=== PATIENT | female | born 1990 | race Caucasian/White ===

== ENCOUNTER 2016-02-17 19:06 | Outpatient (CLI) | payer OTHER ==
[2016-02-17 19:48] LABS: APPEARANCE,URINE CLOUDY; BILIRUBIN,URINE NEGATIVE (NEGATIVE); GLUCOSE, URINE NEGATIVE (NEGATIVE); KETONES,URINE NEGATIVE (NEGATIVE); LEUKOCYTE ESTERASE,URINE TRACE (NEGATIVE); NITRITE,URINE NEGATIVE (NEGATIVE); PROTEIN,URINE NEGATIVE (NEGATIVE); UROBILINOGEN,URINE NEGATIVE mg/dL (<2.0)
--- NOTE | 2016-02-17 20:00 | L&D Flow Sheet ---
LD Flowsheet Datetime Report Generated by CPN: 02/17/2016 20:00 Datetime: 02/17/2016 19:56 Assessment A Comments: Maternal heartbeat recorded. Pt sitting up. (Jelena Ring, RN) Communication Communication: RN at Bedside (Jelena Ring, RN) Datetime: 02/17/2016 19:55 Vital Signs NBP Sys/Sharyn/Mean (mmHg): 128 (QS system process) : 75 (QS system process) : 94 (QS system process) Pulse: 101 (QS system process) LaborFlag: Antepartum (QS system process) Datetime: 02/17/2016 19:28 Vital Signs NBP Sys/Sharyn/Mean (mmHg): 127 (QS system process) : 86 (QS system process) : 102 (QS system process) Pulse: 95 (QS system process) Pain Pain Scale: 2 (Jelena Ring, RN) Pain Presence: Intermittent (Jelena Ring, RN) Pain Type: Pressure (Jelena Ring, RN) Pain Location: Perineum (Jelena Ring, RN) Pain Goal: 1 (Jelena Ring, RN) Pain Relief Measures: Comfort Measures (Jelena Ring, RN) Pain Coping: Talking Through Contractions; Breathing Through Contractions (Jelena Ring, RN) Vaginal Exam Membrane Status: Intact (Jelena Ring, RN) Vaginal Bleeding: None (Jelena Ring, RN) Maternal Assessment Level of Consciousness: Fully Conscious (Jelena Ring, RN) DTR's/Clonus: DTRs 2+; No Clonus (Jelena Ring, RN) Headache: Generalized; Frontal (Jelena Ring, RN) Breath Sounds, Left: Clear and Equal (Jelena Ring, RN) Breath Sounds, Right: Clear and Equal (Jelena Ring, RN) Nausea/Vomiting: Present (Annotations: Heartburn is causing nausea) (Jelena Ring, RN) RUQ Epigastric Pain: Present (Annotations: Pt states feeling pain that radiates up back and shoulder from her "gallbladder") (Jelena Ring, RN) Teaching Instructional Method: Verbal; Patient Instructed; Family/Support Person Instructed; Verbalized Understanding (Jelena Ring, RN) Plan of Care: Plan of Care Discussed (Jelena Brunson RN) Unit Routine: [place] to Room; Call [place]; Bed; Handwashing; Monitoring; Safety/Fall Risk Prevention; Bathroom Privileges (Jelena Brunson RN) Related: Common Discomforts of ; Nutrition; Hydration; Activity and Rest (Jelena Brunson RN) LaborFlag: Antepartum (QS system process)
[2016-02-17 20:03] LABS: URINE BARBITURATES SCREEN NEGATIVE; URINE METHADONE SCREEN NEGATIVE; URINE PHENCYCLIDINE SCREEN NEGATIVE
[2016-02-17] MEDS ORDERED: ONDANSETRON HCL 8 MG TABLET PO ONE (20:12)
[2016-02-17] MEDS ORDERED: LANSOPRAZOLE 30 MG TAB.RAP.DR PO ONE (20:12)
[2016-02-17] MEDS ORDERED: ONDANSETRON HCL 8 MG TABLET ONE (20:21)
[2016-02-17] MEDS ORDERED: LANSOPRAZOLE 30 MG TAB.RAP.DR ONE (20:22)
[2016-02-17] MEDS ORDERED: CITRIC ACID/SODIUM CITRATE ORAL SOLN 15 ML UDCUP PO ONE (22:44)
[2016-02-17] MEDS ORDERED: ZOLPIDEM TARTRATE 5 MG TABLET PO ONE (22:44)
[2016-02-17] MEDS ORDERED: ZOLPIDEM TARTRATE 5 MG TABLET ONE (22:48)
[2016-02-17] MEDS ORDERED: CITRIC ACID/SODIUM CITRATE ORAL SOLN 15 ML UDCUP ONE (22:50)
--- NOTE | 2016-02-17 23:31 | Non Stress Test Report ---
Non Stress Test Datetime Report Generated by CPN: 02/17/2016 23:31 DEMOGRAPHIC Test Number: 2 EGA NST: 38.3 INDICATION Indication for Study: Ordered by Provider URINE RESULTS Urine Protein, NST: Negative Urine Ketones - NST: Negative Urine Glucose - NST: Negative Urine Blood - NST: Negative MONITORING Monitor Explained: Monitor Explained; Test Explained; Patient Verbalized Understanding Time on Monitor: 02/17/2016 19:26 Time off Monitor: 02/17/2016 22:30 NST Duration: 184 NST INTERVENTIONS NST Interventions: PO Hydration; Meal Given; Reposition Patient Physician Notified NST: Dr. Neilsen BABY A: [id number] BABY A Movement : Present Contraction Frequency : Irregular FHR Baseline : 135 Accelerations : 15X15 Decelerations : Variable Variability : Moderate 6-25bpm NST Review: Meets Criteria for Reactive NST NST Review and Verified By : SANNA Jiménez NSDonnie Results: Reactive NST REPORT Report Trigger: Send Report
--- NOTE | 2016-02-18 04:46 | L&D Flow Sheet ---
LD Flowsheet Datetime Report Generated by CPN: 02/18/2016 04:45 Datetime: 02/17/2016 23:00 Teaching Comments: Pt in stable condition, ambulating off of unit accompanied by spouse. Care relinquished at this time. (Jelena Ring, RN) Datetime: 02/17/2016 22:55 Teaching Comments: Pt and patient's verbalized understanding of signs and symptoms to report to provider to include decreased movement, vaginal bleeding, contractions that increase in duration/frequency/intensity, suspected SROM or worsening of chief complaints of dizziness, heartburn or nausea. Pt states that yael has worked almost immediately and denies any pain or questions at this time. (Jelena Ring, RN) Datetime: 02/17/2016 22:53 Medications Medication Comments: Ambien 5 mg PO now x 1 (Jelena Ring, RN) Datetime: 02/17/2016 22:52 Medications Medication Comments: Bicitra 15 ml PO now X1 (Jelena Ring, RN) Datetime: 02/17/2016 22:48 Patient Care Comments: Pt requesting to take the bicitra that was offered previously. (Jelena Ring, RN) Datetime: 02/17/2016 22:32 Vital Signs NBP Sys/Sharyn/Mean (mmHg): 119 (QS system process) : 69 (QS system process) : 88 (QS system process) Pulse: 90 (QS system process) Respirations: 20 (Jelena Ring, RN) Temperature (F): 98.2 (Jelena Ring, RN) Temperature (C): 36.8 (QS system process) LaborFlag: Antepartum (QS system process) Datetime: 02/17/2016 22:30 Uterine Activity Monitor Mode: External; Palpation (Jelena Ring, RN) Frequency (min): Irregular (Jelena Ring, RN) Quality: Mild (Jelena Ring, RN) Duration (sec): 40-60 (Jelena Ring, RN) Resting Tone (Palpate): Relaxed (Jelena Ring, RN) Assessment A Monitor Mode: External US (Jelena Ring, RN) FHR Baseline Rate : 135 (Jelena Ring, RN) Variability: Moderate 6-25 bpm (Jelena Ring, RN) Accelerations: 15X15 (Jelena Ring, RN) Decelerations: None (Jelena Ring, RN) Comments: One prolonged acceleration noted at beginning of timeframe assessed. (Jelena Ring, RN) Datetime: 02/17/2016 22:29 Medications Medication Comments: POC discussed with pt. Pt declines bicitra, but would like ambien 5 mg PO now x 1. (Jelena Brunson, RN) Datetime: 02/17/2016 22:21 Communication Communication: Provider Orders Received; Call/Page Placed to Provider (Jelena Brunson RN) Communication Comments: Call placed to Dr. Rosenbaum. Report to include pt still complaining of heartburn with small nausea from it, toco data and FHR with wandering baseline with some variable decels. Orders received to give pt 15 ml bicitra and 5 mg ambien PO now x1. May discharge pt home and have pt follow up in the office this week. (Jelena Brunson, RN) Datetime: 02/17/2016 22:17 Vital Signs NBP Sys/Sharyn/Mean (mmHg): 124 (QS system process) : 73 (QS system process) : 93 (QS system process) Pulse: 95 (QS system process) LaborFlag: Antepartum (QS system process) Datetime: 02/17/2016 22:00 Uterine Activity Monitor Mode: External; Palpation (Jelena Ring, RN) Frequency (min): 0 (Jelena Ring, RN) Resting Tone (Palpate): Relaxed (Jelena Ring, RN) Assessment A Monitor Mode: External US (Jelena Ring, RN) FHR Baseline Rate : 135 (Jelena Ring, RN) FHR Baseline Changes: Return to Previous Baseline (Jelena Ring, RN) Accelerations: 15X15 (Jelena Ring, RN) Decelerations: None (Jelena Ring, RN) Datetime: 02/17/2016 21:56 Vital Signs NBP Sys/Sharyn/Mean (mmHg): 131 (QS system process) : 62 (QS system process) : 89 (QS system process) Pulse: 99 (QS system process) LaborFlag: Antepartum (QS system process) Datetime: 02/17/2016 21:48 Uterine Activity Monitor Mode: External; Palpation (Jelena Ring, RN) Frequency (min): x1 (Jelena Ring, RN) Quality: Mild (Jelena Ring, RN) Duration (sec): 60 (Jelena Ring, RN) Resting Tone (Palpate): Relaxed (Jelena Ring, RN) Assessment A Monitor Mode: External US (Jelena Ring, RN) FHR Baseline Rate : 155 (Jelena Ring, RN) Variability: Moderate 6-25 bpm (Jelena Ring, RN) Accelerations: 15X15 (Jelena Ring, RN) Decelerations: None (Jelena Ring, RN) Datetime: 02/17/2016 21:35 Vital Signs NBP Sys/Sharyn/Mean (mmHg): 121 (QS system process) : 72 (QS system process) : 91 (QS system process) Pulse: 100 (QS system process) LaborFlag: Antepartum (QS system process) Datetime: 02/17/2016 21:30 Uterine Activity Monitor Mode: External; Palpation (Jelena Ring, RN) Frequency (min): Irregular (Jelena Ring, RN) Quality: Mild (Jelena Ring, RN) Duration (sec): 70-110 (Jelena Ring, RN) Resting Tone (Palpate): Relaxed (Jelena Ring, RN) Assessment A Monitor Mode: External US (Jelena Ring, RN) FHR Baseline Rate : 145 (Jelena Ring, RN) Variability: Moderate 6-25 bpm (Jelena Ring, RN) Accelerations: 15X15 (Jelena Ring, RN) Decelerations: Variable (Jelena Ring, RN) Comments: Change in baseline (Jelena Ring, RN) Datetime: 02/17/2016 21:16 Vital Signs NBP Sys/Sharyn/Mean (mmHg): 116 (QS system process) : 66 (QS system process) : 86 (QS system process) Pulse: 100 (QS system process) LaborFlag: Antepartum (QS system process) Datetime: 02/17/2016 21:00 Uterine Activity Monitor Mode: External; Palpation (Jelena Ring, RN) Frequency (min): Irregular (Jelena Ring, RN) Quality: Mild (Jelena Ring, RN) Duration (sec): 40-110 (Jelena Ring, RN) Resting Tone (Palpate): Relaxed (Jelena Ring, RN) Assessment A Monitor Mode: External US (Jelena Ring, RN) FHR Baseline Rate : 135 (Jelena Ring, RN) Variability: Moderate 6-25 bpm (Jelena Ring, RN) Accelerations: Prolonged (Jelena Ring, RN) Decelerations: Variable (Jelena Ring, RN) Datetime: 02/17/2016 20:55 Vital Signs NBP Sys/Sharyn/Mean (mmHg): 123 (QS system process) : 74 (QS system process) : 93 (QS system process) Pulse: 95 (QS system process) LaborFlag: Antepartum (QS system process) Datetime: 02/17/2016 20:35 Vital Signs NBP Sys/Sharyn/Mean (mmHg): 126 (QS system process) : 70 (QS system process) : 93 (QS system process) Pulse: 99 (QS system process) LaborFlag: Antepartum (QS system process) Datetime: 02/17/2016 20:34 Patient Care Patient Position/Activity: Right Tilt (Jelena Ring, RN) Datetime: 02/17/2016 20:30 Uterine Activity Monitor Mode: External; Palpation (Jelena Ring, RN) Frequency (min): Irregular (Jelena Ring, RN) Quality: Mild (Jleena Ring, RN) Duration (sec): 40-110 (Jelena Ring, RN) Resting Tone (Palpate): Relaxed (Jelena Ring, RN) Assessment A Monitor Mode: External US (Jelena Ring, RN) FHR Baseline Rate : 130 (Jelena Ring, RN) Variability: Moderate 6-25 bpm (Jelena Ring, RN) Accelerations: 15X15 (Jelena Ring, RN) Decelerations: Variable (Jelena Ring, RN) I/O Interventions: Ice Chips Given (Jelena Ring, RN) Patient Care Comments: [place] given for nausea (Jelena Ring, RN) Datetime: 02/17/2016 20:23 Medications Medication Comments: Zofran 8 mg PO. Prevacid 30 mg PO (Jelena Ring, RN) Datetime: 02/17/2016 20:21 Communication Communication: Provider Orders Received; Call/Page Placed to Provider (Jelena Ring, RN) Communication Comments: Call placed to Dr. Rosenbaum. Report to include variable decelerations upon pt sitting up to throw up. Orders received to monitor pt for two more hours then may send home if strip returns to category I. Pt may also have 25 mg phenergan suppository before discharge if desired. (Jelena Ring, RN) Datetime: 02/17/2016 20:15 Vital Signs NBP Sys/Sharyn/Mean (mmHg): 107 (QS system process) : 55 (QS system process) : 75 (QS system process) Pulse: 88 (QS system process) LaborFlag: Antepartum (QS system process) Datetime: 02/17/2016 20:14 Patient Care Comments: Pt vomiting and sitting up. Cool washcloth applied to head. (Jelena Ring, RN) Communication Communication: RN at Bedside (Jelena Brunson RN) Datetime: 02/17/2016 20:05 Communication Communication: Provider Orders Received; Call/Page Placed to Provider (Jelena Brunson RN) Communication Comments: Call placed to Dr. Rosenbaum. Report to includerelevant patient history, pt complains of dizziness, nausea, heartburn, some intermittant pressure and irregular, infrequent contractions, toco data, FHR, urinalysis results and vital signs. Orders received that pt may have 30 mg prevacid PO x1 and 8 mg zofran PO x 1 now for nausea and heartburn. Pt to follow up in the office as scheduled. (Jelena Brunson RN) Datetime: 02/17/2016 20:00 Uterine Activity Monitor Mode: External; Palpation (Jelena Ring, RN) Frequency (min): x1 (Jelena Ring, RN) Quality: Mild (Jelena Ring, RN) Duration (sec): 50 (Jelena Ring, RN) Resting Tone (Palpate): Relaxed (Jelena Ring, RN) Assessment A Monitor Mode: External US (Jelena Ring, RN) FHR Baseline Rate : 135 (Jelena Ring, RN) Variability: Moderate 6-25 bpm (Jelena Ring, RN) Accelerations: 15X15 (Jelena Ring, RN) Decelerations: None (Jelena Ring, RN) Pain Assessment Comments: Pt denies any contractions (Jelena Ring, RN) LaborFlag: Antepartum (QS system process) Datetime: 02/17/2016 19:56 Comments: Maternal heartbeat recorded. Pt sitting up. (Jelena Ring, RN) Communication Communication: RN at Bedside (Jelena Ring, RN) Datetime: 02/17/2016 19:55 Vital Signs NBP Sys/Sharyn/Mean (mmHg): 128 (QS system process) : 75 (QS system process) : 94 (QS system process) Pulse: 101 (QS system process) LaborFlag: Antepartum (QS system process) Datetime: 02/17/2016 19:32 Vaginal Exam Comments: SVE deferred as pt is not complaining of contractions, does not desire cervical check. (Jelena Ring, RN) Datetime: 02/17/2016 19:30 Patient Care Patient Position/Activity: Left Tilt (Jelena Ring, RN) Datetime: 02/17/2016 19:28 Vital Signs NBP Sys/Sharyn/Mean (mmHg): 127 (QS system process) : 86 (QS system process) : 102 (QS system process) Pulse: 95 (QS system process) Pain Pain Scale: 2 (Jelena Ring, RN) Pain Presence: Intermittent (Jelena Ring, RN) Pain Type: Pressure (Jelena Ring, RN) Pain Location: Perineum (Jelnea Ring, RN) Pain Goal: 1 (Jelena Ring, RN) Pain Relief Measures: Comfort Measures (Jelena Ring, RN) Pain Coping: Talking Through Contractions; Breathing Through Contractions (Jelena Ring, RN) Vaginal Exam Membrane Status: Intact (Jelena Ring, RN) Vaginal Bleeding: None (Jelena Ring, RN) Maternal Assessment Level of Consciousness: Fully Conscious (Jelena Ring, RN) DTR's/Clonus: DTRs 2+; No Clonus (Jelena Ring, RN) Headache: Generalized; Frontal (Jelena Ring, RN) Breath Sounds, Left: Clear and Equal (Jelena Brunson RN) Breath Sounds, Right: Clear and Equal (Jelena Brunson RN) Nausea/Vomiting: Present (Annotations: Heartburn is causing nausea) (Jelena Brunson RN) RUQ Epigastric Pain: Present (Annotations: Pt states feeling pain that radiates up back and shoulder from her "gallbladder") (Jelena Brunson RN) Teaching Instructional Method: Verbal; Patient Instructed; Family/Support Person Instructed; Verbalized Understanding (Jelena Brunson RN) Plan of Care: Plan of Care Discussed (Jelena Brunson RN) Unit Routine: [place] to Room; Call [place]; Bed; Handwashing; Monitoring; Safety/Fall Risk Prevention; Bathroom Privileges (Jelena Brunson RN) Related: Common Discomforts of ; Nutrition; Hydration; Activity and Rest (Jelena Brunson RN) LaborFlag: Antepartum (QS system process)
--- NOTE | 2016-02-18 04:46 | L&D Admission Assessment ---
LD ADM ASMT Datetime Report Generated by CPN: 02/18/2016 04:45 PATIENT ASSESSMENT Assessment Type: Triage (02/17/2016 19:28:Jelena Ring, RN) WEIGHT Weight (lb): 143 (02/17/2016 20:02:QS system process) Weight (kg): 65.0 (02/17/2016 20:02:QS system process) BMI: 25.3 (02/17/2016 20:02:QS system process) PAIN Pain Scale: 2 (02/17/2016 19:28:Jelena Ring, RN) Pain Presence: Intermittent (02/17/2016 19:28:Jelena Ring, RN) Pain Type: Pressure (02/17/2016 19:28:Jelena Ring, RN) Pain Location: Perineum (02/17/2016 19:28:Jelena Ring, RN) Pain Goal: 1 (02/17/2016 19:28:Jelena Ring, RN) Pain Related to Contraction: Unsure (Annotations: Pt states feeling some pain during contractions, but is mostly dizzy and feeling nauseated and having heartburn) (02/17/2016 19:28:Jelena Ring, RN) Pain Comments: Pt denies any contractions (02/17/2016 20:00:Jelena Ring, RN) CONTRACTIONS Frequency (min): Irregular (02/17/2016 22:30:Jelena Ring, RN) Frequency (min): 0 (02/17/2016 22:00:Jelena Ring, RN) Frequency (min): x1 (02/17/2016 21:48:Jelena Ring, RN) Frequency (min): Irregular (02/17/2016 21:30:Jelena Ring, RN) Frequency (min): Irregular (02/17/2016 21:00:Jelena Ring, RN) Frequency (min): Irregular (02/17/2016 20:30:Jelena Ring, RN) Frequency (min): x1 (02/17/2016 20:00:Jelena Ring, RN) Duration (sec): 40-60 (02/17/2016 22:30:Jelena Ring, RN) Duration (sec): 60 (02/17/2016 21:48:Jelena Ring, RN) Duration (sec): 70-110 (02/17/2016 21:30:Jelena Ring, RN) Duration (sec): 40-110 (02/17/2016 21:00:Jelena Ring, RN) Duration (sec): 40-110 (02/17/2016 20:30:Jelnea Ring, RN) Duration (sec): 50 (02/17/2016 20:00:Jelena Ring, RN) Quality: Mild (02/17/2016 22:30:Jelena Ring, RN) Quality: Mild (02/17/2016 21:48:Jelena Ring, RN) Quality: Mild (02/17/2016 21:30:Jelena Ring, RN) Quality: Mild (02/17/2016 21:00:Jelena Ring, RN) Quality: Mild (02/17/2016 20:30:Jelena Ring, RN) Quality: Mild (02/17/2016 20:00:Jelena Ring, RN) Resting Tone [place]: Relaxed (02/17/2016 22:30:Jelena Ring, RN) Resting Tone [place]: Relaxed (02/17/2016 22:00:Jelena Ring, RN) Resting Tone [place]: Relaxed (02/17/2016 21:48:Jelena Ring, RN) Resting Tone [place]: Relaxed (02/17/2016 21:30:Jelena Ring, RN) Resting Tone [place]: Relaxed (02/17/2016 21:00:Jelena Ring, RN) Resting Tone [place]: Relaxed (02/17/2016 20:30:Jelena Ring, RN) Resting Tone [place]: Relaxed (02/17/2016 20:00:Jelena Ring, RN) VAGINAL EXAM Membranes Status: Intact (02/17/2016 19:28:Jelena Ring, RN) NEURO Level of Consciousness: Fully Conscious (02/17/2016 19:28:Jelena Ring, RN) DTR's/Clonus: DTRs 2+; No Clonus (02/17/2016 19:28:Jelena Ring, RN) Headache: Generalized; Frontal (02/17/2016 19:28:Jelena Ring, RN) Dizziness: Yes (Annotations: pt states dizziness has improved since being at the hospital and sitting down) (02/17/2016 19:28:Jelena Ring, RN) Blurred Vision: No (02/17/2016 19:28:Jelena Ring, RN) Extremity Numbness/Tingling : None (02/17/2016 19:28:Jelena Ring, RN) Extremity Movement: Full Range of Motion (02/17/2016 19:28:Jelena Ring, RN) CARDIOVASCULAR Heart Rhythm: Regular (Annotations: Pt states having tachycardia; normal rhythm auscultated upon assessment) (02/17/2016 19:28:Jelena Brunson RN) Nailbeds: [place] (02/17/2016 19:28:Jelena Brunson RN) Capillary Refill: Less than 3 Seconds (02/17/2016 19:28:Jelena Brunson RN) Lower Extremities Edema: None (02/17/2016 19:28:Jelena Brunson RN) Upper Extremities Edema: None (02/17/2016 19:28:Jelena Brunson RN) Facial Edema: None (02/17/2016 19:28:Jelena Brunson RN) Dg's Sign Left Leg: Negative (02/17/2016 19:28:Jelena Brunson RN) Dg's Sign Right Leg: Negative (02/17/2016 19:28:Jelena Brunson RN) DVT RISK ASSESSMENT DVT Risk Age: Age less than 41 years (02/17/2016 19:28:Jelena Brunson RN) DVT Risk BMI: BMI<31 (02/17/2016 19:28:Jelena Brunson RN) DVT Risk Surgery: History of Prior Major Surgery (Annotations: multiple cyst removals, wisdom teeth, jaw surgery) (02/17/2016 19:28:Jelena Brunson RN) DVT Risk Other: Women Only- or (<1 month) (02/17/2016 19:28:Jelena Ring, RN) DVT Risk Total: 2 (02/17/2016 19:28:QS system process) DVT Risk Text: Moderate Risk (10-20%) - Consider stockings, compresssion device, pharmacological therapy per hospital policy (02/17/2016 19:28:QS system process) RESPIRATORY Respiratory Effort: Unlabored; Regular Rhythm; Equal Expansion (02/17/2016 19:28:Jelena Ring, RN) Breath Sounds, Left: Clear and Equal (02/17/2016 19:28:Jelena Ring, RN) Breath Sounds, Right: Clear and Equal (02/17/2016 19:28:Jelena Ring, RN) Cough Productivity: None (02/17/2016 19:28:Jelena Ring, RN) GASTROINTESTINAL Nausea/Vomiting: Present (Annotations: Heartburn is causing nausea) (02/17/2016 19:28:Jelena Ring, RN) Bowel Sounds: Normoactive; All Quadrants (02/17/2016 19:28:Jelena Ring, RN) RUQ Epigastric Pain: Present (Annotations: Pt states feeling pain that radiates up back and shoulder from her "gallbladder") (02/17/2016 19:28:Jelena Brunson RN) Bowel Patterns: Soft, Formed Stool (02/17/2016 19:28:Jelena Brunson RN) Hemorrhoids: Present (02/17/2016 19:28:Jelena Brunson RN) Diet Type: "gallbladder diet" (02/17/2016 19:28:Jelena Brunson RN) Last Meal: 02/17/2016 16:30 (02/17/2016 19:28:Jelena Brunson RN) GENITOURINARY Bladder: Nondistended (02/17/2016 19:28:Jelena Brunson RN) Frequency of Urination: No (02/17/2016 19:28:Jelena Brunson RN) Urination Burning: No (02/17/2016 19:28:Jelena Brunson RN) CVA Tenderness: No (02/17/2016 19:28:Jelena Brunson RN) Vaginal Bleeding: None (02/17/2016 19:28:Jelena Brunson RN) Vaginal Discharge Amount: Moderate (02/17/2016 19:28:Jelena Brunson RN) Vaginal Discharge Color: clear (02/17/2016 19:28:Jelena Brunson RN) Vaginal Discharge Odor: Non-Odorous (02/17/2016 19:28:Jelena Brunson RN) Vaginal Discharge Character: Pt states is mucous like and does not think her water has broken (02/17/2016 19:28:Jelena Brunson RN) INTEGUMENTARY Skin Color: Normal for Race (02/17/2016 19:28:Jelena Brunson RN) Skin Temperature: Cool (02/17/2016 19:28:Jelena Brunson RN) Skin Moisture: Dry (02/17/2016 19:28:Jelena Brunson RN) Surgical Scars: left inner thigh from cyst removal in femur; bone biopsy in left hip; cranial cyst removed (02/17/2016 19:28:Jelena Brunson RN) Body Piercings/Tattoos: Ears (02/17/2016 19:28:Jelena Brunson RN) MICHAEL SKIN ASSESSMENT Michael Scale Sensory Perception: No Impairment- Responds to verbal commands. Has no sensory deficit which would limit ability to feel or voice pain or discomfort (02/17/2016 19:28:Jelena Brunson RN) Michael Scale Moisture: Rarely Moist- Skin is usually dry. Linen only requires changing at routine intervals (02/17/2016 19:28:Jelena Brunson RN) Michael Scale Activity: Walks Frequently- Walks outside the room at least twice a day and inside room at least every 2 hours during the day. (02/17/2016 19:28:Jelena Brunson RN) Michael Scale Mobility: No Limitations- Makes major and frequent changes in position without assistance (02/17/2016 19:28:Jelena Brunson RN) Michael Scale Nutrition: Excellent- Eats most of every meal. Never refuses a meal. Usually eats a total of 4 or more servings of meat and dairy products. Occasionally eats between meals. Does not require supplementation (02/17/2016 19:28:Jelena Brunson RN) Michael Scale Friction and Shear: No Apparent Problem- Moves in bed and in chair independently and has sufficient muscle strength to lift up completely during move. Maintains good position in bed or chair at all times (02/17/2016 19:28:Jelena Brunson RN) Michael Scale Total: 23 (02/17/2016 19:28:QS system process) Michael Scale Risk: No Risk of Pressure Ulcer Noted at this Time (02/17/2016 19:28:QS system process) SUPPORT Family Support: Significant Other supportive, at bedside frequently (02/17/2016 19:28:Jelena Brunson RN) Emotional State: Calm/Relaxed (02/17/2016 19:28:Jelena Brunson RN) SAFETY Call [place] Within Reach: Yes (02/17/2016 19:28:Jelena Brunson RN) Side Rails Up: Yes (02/17/2016 19:28:Jelena Brunson RN) Bed Wheels Locked: Yes (02/17/2016 19:28:Jelena Brunson RN) Arm Bands Present: Yes (02/17/2016 19:28:Jelena Brunson RN) Isolation: [place] (02/17/2016 19:28:Jelena Brunson RN) FALL SCREEN Fall Risk History of Falling: (0) No (02/17/2016 19:28:Jelena Brunson RN) Fall Risk Secondary Diagnosis: (0) No (02/17/2016 19:28:Jelena Brunson RN) Fall Risk Ambulatory Aid: (0) None/Bedrest/Wheelchair/Nurse Assist (02/17/2016 19:28:Jelena Brunson RN) Fall Risk IV Therapy: (0) No (02/17/2016 19:28:Jelena Brunson RN) Fall Risk Gait: (0) Normal/Bedrest/Immobile (02/17/2016 19:28:Jelena Brunson RN) Fall Risk Mental Status: (0) Oriented to Own Ability (02/17/2016 19:28:Jelena Brunson RN) Fall Risk Score: 0 (02/17/2016 19:28:QS system process) Fall Risk Score Definition: No Risk: No action required (02/17/2016 19:28:QS system process) RECENT TRAVEL/INFECTIOUS DISEASE Recent Exp Communicable Disease: No (02/17/2016 19:28:Jelena Brunson RN) Cough or Fever: No (02/17/2016 19:28:Jelena Brunson RN) Foreign Travel Past 10 Days: No (02/17/2016 19:28:Jelena Brunson RN) Open Wounds or Sores: No (02/17/2016 19:28:eJlena Brunson RN) Prior Antibiotic Resistance Tx: Yes (Annotations: CDiff in 09/2010) (02/17/2016 19:28:Jelena Brunson RN) Cultures Obtained: Not Applicable (Annotations: more than 3 years ago) (02/17/2016 19:28:Jelena Brunson RN) Isolation Initiated: No (02/17/2016 19:28:Jelena Brunson RN) Pt/Family Education: Handwashing Hygiene (02/17/2016 19:28:Jelena Brunson RN) BABY A FHR Baseline Rate (bpm) Baby A: 135 (02/17/2016 22:30:Jelena Ring RN) FHR Baseline Rate (bpm) Baby A: 135 (02/17/2016 22:00:Jelena Ring RN) FHR Baseline Rate (bpm) Baby A: 155 (02/17/2016 21:48:Jelena Ring, RN) FHR Baseline Rate (bpm) Baby A: 145 (02/17/2016 21:30:Jelena Ring, RN) FHR Baseline Rate (bpm) Baby A: 135 (02/17/2016 21:00:Jelena Ring, RN) FHR Baseline Rate (bpm) Baby A: 130 (02/17/2016 20:30:Jelena Ring, RN) FHR Baseline Rate (bpm) Baby A: 135 (02/17/2016 20:00:Jelena Ring, RN) Variability Baby A: Moderate 6-25 bpm (02/17/2016 22:30:Jelena Ring, RN) Variability Baby A: Moderate 6-25 bpm (02/17/2016 21:48:Jelena Ring, RN) Variability Baby A: Moderate 6-25 bpm (02/17/2016 21:30:Jelena Ring, RN) Variability Baby A: Moderate 6-25 bpm (02/17/2016 21:00:Jelena Ring, RN) Variability Baby A: Moderate 6-25 bpm (02/17/2016 20:30:Jelena Ring, RN) Variability Baby A: Moderate 6-25 bpm (02/17/2016 20:00:Jelena Ring, RN) Accelerations Baby A: 15X15 (02/17/2016 22:30:Jelena Ring, RN) Accelerations Baby A: 15X15 (02/17/2016 22:00:Jelena Ring, RN) Accelerations Baby A: 15X15 (02/17/2016 21:48:Jelena Ring, RN) Accelerations Baby A: 15X15 (02/17/2016 21:30:Jelena Ring, RN) Accelerations Baby A: Prolonged (02/17/2016 21:00:Jelena Ring, RN) Accelerations Baby A: 15X15 (02/17/2016 20:30:Jelena Ring, RN) Accelerations Baby A: 15X15 (02/17/2016 20:00:Jelena Ring, RN) Decelerations Baby A: None (02/17/2016 22:30:Jelena Ring, RN) Decelerations Baby A: None (02/17/2016 22:00:Jelena Ring, RN) Decelerations Baby A: None (02/17/2016 21:48:Jelena Ring, RN) Decelerations Baby A: Variable (02/17/2016 21:30:Jelena Brunson RN) Decelerations Baby A: Variable (02/17/2016 21:00:Jelena Brunson RN) Decelerations Baby A: Variable (02/17/2016 20:30:Jelena Brunson RN) Decelerations Baby A: None (02/17/2016 20:00:Jelena Brunson RN)
--- NOTE | 2016-02-18 04:46 | L&D Discharge Summary ---
OB Discharge Summary Datetime Report Generated by CPN: 02/18/2016 04:45 DISCHARGE DIAGNOSIS Diagnosis/Symptoms: False Labor; Nausea/Vomiting Diagnoses/Symptoms Other: Reactive NST, Dehydration in Reviewed and signed Kick Counts and Dehydration in Care notes. Pt encouraged to keep f/u as scheduled and return for decreased FM or PTL concerns. Pt verbalized understanding and denies needs. Gestation: 38.3 Number of Babies in Womb: 1 Parity: 2 DIET/ACTIVITY/RESTRICTIONS Diet: Regular Activity: Normal Activity Activity Restrictions: No Sexual Activity; Nothing in Vagina - [place], Tampons, Douche TEACHING/INSTRUCTIONS/REFERRALS Instructions Given To: Patient, patient's spouse Instructions Understood: Patient Verbalized Understanding; Support Person Verbalized Understanding Referrals: None Educational Materials- Other: - Kick Counts - The Labor Process DISCHARGE INFORMATION Discharged AMA: No Discharge Date/Time: 02/17/2016 23:00 Discharged To: Home Discharge Provider Name: Dr. Rosenbaum Accompanied By: Spouse Discharge Method: Ambulatory Condition: Stable FOLLOW UP INFORMATION Follow Up With: [facility] Follow Up On: 3-5 Days Follow Up Phone Number: [facility] - Comments: Pt and patient's verbalize understanding of signs and symptoms to report to provider to include decreased movement, vaginal bleeding, contractions that increase in duration/frequency/intensity, suspected SROM or worsening of chief complaints of dizziness, heartburn or nausea. Will follow up with [facility] this week.
--- NOTE | 2016-02-18 04:46 | L&D Current Admission ---
Current Admit Datetime Report Generated by CPN: 02/18/2016 04:45 ADMISSION INFORMATION Chief Complaint: Other (Annotations: dizziness, random contractions and pressure, heartburn and nausea) (02/17/2016 19:28:Jelena Brunson RN) Chief Complaint: Nausea; Vomiting; Other (01/17/2016 11:53:Hilary Bojorquez RN)
--- NOTE | 2016-02-18 04:46 | L&D General Admission ---
General Admit Datetime Report Generated by CPN: 02/18/2016 04:45 INFORMATION Para: 2 (02/17/2016 23:10:Jelena Ring, RN) Baby, Number in Womb: 1 (02/17/2016 23:10:Jelena Ring, RN) CARE Height (in): 63 (02/17/2016 20:02:QS system process) Height (in): 63 (01/17/2016 12:13:QS system process) Height (in): 63 (01/17/2016 11:40:QS system process) ALLERGIES Medication Allergies: morphine/SV/Anaphylaxis (02/17/2016); azithromycin/GA (02/17/2016); latex/GA (02/17/2016) (02/17/2016 19:59:QS system process) Medication Allergies: morphine/SV/Anaphylaxis (01/17/2016); azithromycin/GA (01/17/2016); latex/GA (01/17/2016) (01/17/2016 11:37:QS system process) LABS Hemoglobin: 9.0 L (01/17/2016 13:12:QS system process) Hematocrit: 26.5 L (01/17/2016 13:12:QS system process) MCV: 86 (01/17/2016 13:12:QS system process)
--- NOTE | 2016-02-18 04:46 | Antepartum Discharge Summary ---
Antepartum DC Datetime Report Generated by CPN: 02/18/2016 04:45 DIET/ACTIVITY/RESTRICTIONS Diet: Regular (02/17/2016 23:10:Jelena Ring, RN) Activity: Normal Activity (02/17/2016 23:10:Jelena Ring, RN) TEACHING/INSTRUCTIONS/REFERRALS Instructions Given To: Patient, patient's spouse (02/17/2016 23:10:Jelena Ring, RN) Instructions Understood: Patient Verbalized Understanding; Support Person Verbalized Understanding (02/17/2016 23:10:Jelena Ring, RN) Referrals: None (02/17/2016 23:10:Jelena Brunson RN) Educational Materials- Other: - Kick Counts - The Labor Process (02/17/2016 23:10:Jelena Brunson RN) DISCHARGE INFORMATION Discharged AMA: No (02/17/2016 23:10:Jelena Brunson RN) Discharge Date/Time: 02/17/2016 23:00 (02/17/2016 23:10:Jelena Brunson RN) Discharged To: Home (02/17/2016 23:10:Jelena Brunson RN) Discharge Provider Name: Dr. Rosenbaum (02/17/2016 23:10:Jelena Brunson RN) Accompanied By: Spouse (02/17/2016 23:10:Jelena Brunson RN) Discharge Method: Ambulatory (02/17/2016 23:10:Jelena Brunson RN) Condition: Stable (02/17/2016 23:10:Jelena Brunson RN) FOLLOW UP INFORMATION Follow Up With: [facility] (02/17/2016 23:10:Jelena Brunson RN) Follow Up On: 3-5 Days (02/17/2016 23:10:Jelena Brunson RN) Follow Up Phone Number: [facility] - (02/17/2016 23:10:Jelena Brunson RN) Comments: Pt and patient's verbalize understanding of signs and symptoms to report to provider to include decreased movement, vaginal bleeding, contractions that increase in duration/frequency/intensity, suspected SROM or worsening of chief complaints of dizziness, heartburn or nausea. Will follow up with [facility] this week. (02/17/2016 23:10:Jelena Brunson RN)
== END 2016-02-17 23:00 | disposition home or self-care (01) ==
LOC: LC 19:06
PROVIDERS: ATTEND Obstetrics & Gynecology
PROC: 4A1HXCZ Monitoring of Products of Conception, Cardiac Rate, External Approach (ICD-10-PCS; principal; 2016-02-17)
DX: O47.1 False labor at or after 37 completed weeks of gestation (principal); O99.283 Endocrine, nutritional and metabolic diseases complicating pregnancy, third trimester; E86.0 Dehydration; Z3A.38 38 weeks gestation of pregnancy
CPT/HCPCS: 59025; 81005; G0479; S0119; J3490; 80307

== ENCOUNTER 2016-02-20 22:09 | Outpatient (CLI) | payer OTHER ==
[2016-02-20 22:57] LABS: APPEARANCE,URINE SLIGHTLY-CLOUDY; BILIRUBIN,URINE NEGATIVE (NEGATIVE); GLUCOSE, URINE NEGATIVE (NEGATIVE); KETONES,URINE NEGATIVE (NEGATIVE); LEUKOCYTE ESTERASE,URINE SMALL (NEGATIVE); NITRITE,URINE NEGATIVE (NEGATIVE); PROTEIN,URINE NEGATIVE (NEGATIVE); URINE SPECIFIC GRAVITY 1.016; UROBILINOGEN,URINE NEGATIVE mg/dL (<2.0)
[2016-02-20] MEDS ORDERED: ONDANSETRON 4 MG TAB.RAPDIS PO ONE (23:09)
[2016-02-20] MEDS ORDERED: OXYCODONE-ACETAMINOPHEN 5-325 MG TABLET PO ONE (23:09)
[2016-02-20] MEDS ORDERED: ONDANSETRON 4 MG TAB.RAPDIS ONE (23:14)
[2016-02-20] MEDS ORDERED: OXYCODONE-ACETAMINOPHEN 5-325 MG TABLET ONE (23:15)
[2016-02-20 23:24] LABS: URINE BARBITURATES SCREEN NEGATIVE; URINE METHADONE SCREEN NEGATIVE; URINE PHENCYCLIDINE SCREEN NEGATIVE
--- NOTE | 2016-02-21 04:47 | L&D Current Admission ---
Current Admit Datetime Report Generated by [facility]: 02/21/2016 04:45 Chief Complaint: Contractions; Epigastric Pain (02/20/2016 22:39:Thu Barajas RN)
--- NOTE | 2016-02-21 04:47 | L&D Discharge Summary ---
OB Discharge Summary Datetime Report Generated by CPN: 02/21/2016 04:45 DISCHARGE DIAGNOSIS Diagnosis/Symptoms: False Labor; Other Diagnoses/Symptoms Other: Pt c/o epigastric pain. Has had gall bladder pain throughout Gestation: 38.6 Number of Babies in Womb: 1 Parity: 2 DIET/ACTIVITY/RESTRICTIONS Diet: Regular Activity: Normal Activity Activity Restrictions: No Sexual Activity; Nothing in Vagina - [place], Tampons, [place]che TEACHING/INSTRUCTIONS/REFERRALS Instructions Given To: Daniela Jin Instructions Understood: Patient Verbalized Understanding Referrals: None Educational Materials- Other: General Instructions from CPN given to pt. DISCHARGE INFORMATION Discharged AMA: No Discharge Date/Time: 02/20/2016 23:36 Discharged To: Home Discharge Provider Name: Dr. Jeter Accompanied By: self-Dad is picking her up from ED entrance Discharge Method: Wheelchair Condition: Stable FOLLOW UP INFORMATION Follow Up With: [facility] Follow Up On: As Scheduled Follow Up Phone Number: [facility] - Comments: Given Percocet prior to d/c. Pt states has taken Percocet before without any problem. GENERAL INSTR-CALL PROVIDER IF: Contractions: Regular painful contractions every 5 minutes or less for one hour. Time your contractions from the beginning of one to the beginning of the next Gush of Fluid/Blood: Gush of fluid or blood from your vagina (it is normal to have spotting after vaginal exam or intercourse) Decreased Movement: Your baby is not moving as much as usual- 4 movements in 1 hour after drinking and resting on side
--- NOTE | 2016-02-21 04:47 | L&D Flow Sheet ---
LD Flowsheet Datetime Report Generated by CPN: 02/21/2016 04:45 Datetime: 02/20/2016 23:36 Additional Nursing Comments: Pt d/c'd via w/c. Father is to pick patient up from ED entrance. (Thu Jenn, RN) Datetime: 02/20/2016 23:35 Instructional Method: Verbal; Written (Annotations: Given general instructions from CPN) (Thu Jenn, RN) Datetime: 02/20/2016 23:18 Analgesics/Sedatives: Zofran 4 mg OTD po given. (Thu Jenn, RN) Datetime: 02/20/2016 23:11 Monitor Mode: External (Thu Jenn, RN) Frequency (min): X2 (Thu Jenn, RN) Quality: Mild (Thu Jenn, RN) Duration (sec): 50 (Thu Jenn, RN) Pattern: Normal: <= 5 Contractions in 10 Minutes (Thu Jenn, RN) Resting Tone (Palpate): Relaxed (Thu Jenn, RN) Monitor Mode: External US (Thu Jenn, RN) FHR Baseline Changes: No Baseline Change (Thu Jenn, RN) Variability: Moderate 6-25 bpm (Thu Jenn, RN) Accelerations: 15X15 (Thu Jenn, RN) Decelerations: None (Thu Jenn, RN) Datetime: 02/20/2016 23:04 Communication Comments: Strip reviewed by Corona Lechuga (Thucornelius Barajas RN) Communication Comments: Dr Jeter informed of pt's presence and c/o. Orders received. (Thu Jenn, RN) Datetime: 02/20/2016 23:01 Patient Care Comments: Pt given popsicle (Thu BarajasSANNA) Datetime: 02/20/2016 22:57 NBP Sys/Sharyn/Mean (mmHg): 102 (QS system process) : 71 (QS system process) : 81 (QS system process) Pulse: 109 (QS system process) LaborFlag: Antepartum (QS system process) Datetime: 02/20/2016 22:39 Frequency (min): q4-8 minutes per pt (Thu Barajas RN) Pain Scale: 3 (Thu Barajas RN) Pain Presence: Constant (Thu Barajas RN) Pain Type: Sharp; Stabbing (Thu Barajas RN) Pain Location: in epigastric area on right side of upper abdomen (Thu Barajas RN) Pain Goal: 1 (Thu Barajas RN) Pain Coping: Breathing Through Contractions (Thu Barajas RN) Vaginal Bleeding: Normal Show (Annotations: Pt states has had bloody show since was checked in office.) (Thu Barajas RN) Level of Consciousness: Fully Conscious (Thu Barajas RN) DTR's/Clonus: DTRs 1+ (Thu Barajas RN) Headache: Frontal (Annotations: Pt states keeps a h/a throughout ) (Thu Barajas RN) Breath Sounds, Left: Clear and Equal (Thu Barajas RN) Breath Sounds, Right: Clear and Equal (Thu Barajas RN) Nausea/Vomiting: Present (Annotations: just nausea) (Thu Barajas RN) RUQ Epigastric Pain: Present (Thu Barajas RN) LaborFlag: Antepartum (QS system process) Datetime: 02/20/2016 22:27 NBP Sys/Sharyn/Mean (mmHg): 121 (QS system process) : 67 (QS system process) : 88 (QS system process) Pulse: 109 (QS system process) LaborFlag: Antepartum (QS system process) Datetime: 02/20/2016 22:26 Dilatation (cm): 3.0 (Thu Barajas RN) Effacement (%): 80 (Thu Barajas RN) Station: -1 (Thu Barajas RN) Exam by: NEGRITA De La Rosa (Thu Barajas RN) Vaginal Bleeding: None (Thu Barajas RN) Cervix, Consistency: Soft (Thu Barajas RN) Cervix, Position: Posterior (Thu Barajas RN)
--- NOTE | 2016-02-21 04:47 | L&D Admission Assessment ---
LD ADM ASMT Datetime Report Generated by CPN: 02/21/2016 04:45 Assessment Type: Triage (02/20/2016 22:39:Thu Barajas RN) Weight (lb): 150 (02/20/2016 23:09:QS system process) Weight (kg): 68.2 (02/20/2016 23:09:QS system process) BMI: 26.6 (02/20/2016 23:09:QS system process) Pain Scale: 3 (02/20/2016 22:39:Thu Barajas RN) Pain Presence: Constant (02/20/2016 22:39:Thu Barajas RN) Pain Type: Sharp; Stabbing (02/20/2016 22:39:Thu Barajas RN) Pain Location: in epigastric area on right side of upper abdomen (02/20/2016 22:39:Thu Barajas RN) Pain Goal: 1 (02/20/2016 22:39:Thu Barajas RN) Pain Related to Contraction: No (02/20/2016 22:39:Thu Barajas RN) Frequency (min): X2 (02/20/2016 23:11:Thu Barajas RN) Frequency (min): q4-8 minutes per pt (02/20/2016 22:39:Thu Barajas RN) Duration (sec): 50 (02/20/2016 23:11:Thu Barajas RN) Quality: Mild (02/20/2016 23:11:Thu Barajas RN) Pattern: Normal: <= 5 Contractions in 10 Minutes (02/20/2016 23:11:Thu Barajas RN) Resting Tone [place]: Relaxed (02/20/2016 23:11:Thu Barajas RN) Dilatation (cm): 3.0 (02/20/2016 22:26:Thu Barajas RN) Effacement (%): 80 (02/20/2016 22:26:Thu Barajas RN) Station: -1 (02/20/2016 22:26:Thu Barajas RN) Level of Consciousness: Fully Conscious (02/20/2016 22:39:Thu Barajas RN) DTR's/Clonus: DTRs 1+ (02/20/2016 22:39:Thu Barajas RN) Headache: Frontal (Annotations: Pt states keeps a h/a throughout ) (02/20/2016 22:39:Thu Barajas RN) Dizziness: Yes (Annotations: states has had dizzines during and has passed out several times. Has not been driving since Thanksgiving due to this.) (02/20/2016 22:39:Thu Barajas RN) Blurred Vision: Yes (02/20/2016 22:39:Thu Barajas RN) Extremity Numbness/Tingling : None (02/20/2016 22:39:Thu Barajas RN) Extremity Movement: Full Range of Motion (02/20/2016 22:39:Thu Barajas RN) Heart Rhythm: Regular (02/20/2016 22:39:Thu Barajas RN) Nailbeds: [place] (02/20/2016 22:39:Thu Barajas RN) Capillary Refill: Less than 3 Seconds (02/20/2016 22:39:Thu Barajas RN) Lower Extremities Edema: None (02/20/2016 22:39:Thu Barajas RN) Lower Extremities Edema Degree: None (02/20/2016 22:39:Thu Barajas RN) Upper Extremities Edema: None (02/20/2016 22:39:Thu Barajas RN) Upper Extremities Edema Degree: None (02/20/2016 22:39:Thu Barajas RN) Facial Edema: None (02/20/2016 22:39:Thu Barajas RN) Dg's Sign Left Leg: Negative (02/20/2016 22:39:Thu Barajas RN) Dg's Sign Right Leg: Negative (02/20/2016 22:39:Thu Barajas RN) DVT Risk Age: Age less than 41 years (02/20/2016 22:39:Thu Barajas RN) DVT Risk BMI: BMI<31 (02/20/2016 22:39:Thu Barajas RN) DVT Risk Surgery: Major Surgery (1-2 Hours) (02/20/2016 22:39:Thu Barajas RN) DVT Risk Other: Women Only- or (<1 month) (02/20/2016 22:39:Thu Barajas RN) DVT Risk Total: 3 (02/20/2016 22:39:QS system process) DVT Risk Text: High Risk (20-40%)- Consider stockings, compresssion device, pharmacological therapy per hospital policy (02/20/2016 22:39:QS system process) Respiratory Effort: Unlabored; Regular Rhythm (02/20/2016 22:39:Thu Barajas RN) Breath Sounds, Left: Clear and Equal (02/20/2016 22:39:Thu Barajas RN) Breath Sounds, Right: Clear and Equal (02/20/2016 22:39:Thu Barajas RN) Cough Productivity: None (02/20/2016 22:39:Thu Barajas RN) Nausea/Vomiting: Present (Annotations: just nausea) (02/20/2016 22:39:Thu Barajas RN) Bowel Sounds: Normoactive (02/20/2016 22:39:Thu Barajas RN) RUQ Epigastric Pain: Present (02/20/2016 22:39:Thu Barajas RN) Bowel Patterns: Soft, Formed Stool (02/20/2016 22:39:Thu Barajas RN) Hemorrhoids: Present (02/20/2016 22:39:Thu Barajas RN) Diet Type: 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 (02/20/2016 22:39:Thu Barajas RN) Last Meal: 02/20/2016 18:00 (02/20/2016 22:39:Thu Barajas RN) Frequency of Urination: No (02/20/2016 22:39:Thu Barajas RN) Urination Burning: No (02/20/2016 22:39:Thu Barajas RN) CVA Tenderness: No (02/20/2016 22:39:Thu Barajas RN) Vaginal Bleeding: None (02/20/2016 22:39:Thu Barajas RN) Vaginal Discharge Odor: Non-Odorous (02/20/2016 22:39:Thu Baarjas RN) Skin Color: Normal for Race (02/20/2016 22:39:Thu Barajas RN) Skin Temperature: Warm (02/20/2016 22:39:Thu Barajas RN) Skin Moisture: Dry (02/20/2016 22:39:Thu Barajas RN) Surgical Scars: scar on left hip (02/20/2016 22:39:Thu Barajas RN) Body Piercings/Tattoos: tattoos x5 (02/20/2016 22:39:Thu Barajas RN) Michael Scale Sensory Perception: No Impairment- Responds to verbal commands. Has no sensory deficit which would limit ability to feel or voice pain or discomfort (02/20/2016 22:39:Thu Barajas RN) Michael Scale Moisture: Rarely Moist- Skin is usually dry. Linen only requires changing at routine intervals (02/20/2016 22:39:Thu Barajas RN) Michael Scale Activity: Walks Frequently- Walks outside the room at least twice a day and inside room at least every 2 hours during the day. (02/20/2016 22:39:Thu Barajas RN) Michael Scale Mobility: No Limitations- Makes major and frequent changes in position without assistance (02/20/2016 22:39:Thu Barajas RN) Michael Scale Nutrition: Excellent- Eats most of every meal. Never refuses a meal. Usually eats a total of 4 or more servings of meat and dairy products. Occasionally eats between meals. Does not require supplementation (02/20/2016 22:39:Thu Barajas RN) Michael Scale Friction and Shear: No Apparent Problem- Moves in bed and in chair independently and has sufficient muscle strength to lift up completely during move. Maintains good position in bed or chair at all times (02/20/2016 22:39:Thu Barajas RN) Michael Scale Total: 23 (02/20/2016 22:39:QS system process) Michael Scale Risk: No Risk of Pressure Ulcer Noted at this Time (02/20/2016 22:39:QS system process) Emotional State: Calm/Relaxed; Anxious (Annotations: calm and relaxed at times and other times grabs right epigastric area.) (02/20/2016 22:39:hTu Barajas RN) Call [place] Within Reach: Yes (02/20/2016 22:39:Thu Barajas RN) Side Rails Up: Yes (02/20/2016 22:39:Thu Barajas RN) Bed Wheels Locked: Yes (02/20/2016 22:39:Thu Barajas RN) Arm Bands Present: Yes (02/20/2016 22:39:Thu Barajas RN) Isolation: [place] (02/20/2016 22:39:Thu Barajas RN) Fall Risk History of Falling: (0) No (02/20/2016 22:39:Thu Barajas RN) Fall Risk Secondary Diagnosis: (0) No (02/20/2016 22:39:Thu Barajas RN) Fall Risk Ambulatory Aid: (0) None/Bedrest/Wheelchair/Nurse Assist (02/20/2016 22:39:Thu Barajas RN) Fall Risk IV Therapy: (0) No (02/20/2016 22:39:Thu Barajas RN) Fall Risk Gait: (0) Normal/Bedrest/Immobile (02/20/2016 22:39:Thu Barajas RN) Fall Risk Mental Status: (0) Oriented to Own Ability (02/20/2016 22:39:Thu Barajas RN) Fall Risk Score: 0 (02/20/2016 22:39:QS system process) Fall Risk Score Definition: No Risk: No action required (02/20/2016 22:39:QS system process) Recent Exp Communicable Disease: No (02/20/2016 22:39:Thu Barajas RN) Cough or Fever: Yes (Annotations: febrile) (02/20/2016 22:39:Thu Barajas RN) Foreign Travel Past 10 Days: No (02/20/2016 22:39:Thu Barajas RN) Open Wounds or Sores: No (02/20/2016 22:39:Thu Barajas RN) Prior Antibiotic Resistance Tx: No (02/20/2016 22:39:Thu Barajas RN) Cultures Obtained: Not Applicable (02/20/2016 22:39:Thu Barajas RN) Isolation Initiated: No (02/20/2016 22:39:Thu Barajas RN) Pt/Family Education: Not Applicable (02/20/2016 22:39:Thu Barajas RN) Variability Baby A: Moderate 6-25 bpm (02/20/2016 23:11:Thu Barajas RN) Accelerations Baby A: 15X15 (02/20/2016 23:11:Thu Barajas RN) Decelerations Baby A: None (02/20/2016 23:11:Thu Barajas RN)
--- NOTE | 2016-02-21 04:47 | L&D General Admission ---
General Admit Datetime Report Generated by N: 02/21/2016 04:45 Baby, Number in Womb: 1 (02/20/2016 23:32:Thu Barajas RN) Height (in): 63 (02/20/2016 23:09:QS system process) Height (in): 63 (02/20/2016 22:34:QS system process) Medication Allergies: morphine/SV/Anaphylaxis (02/20/2016); azithromycin/NH (02/20/2016); latex/NH (02/20/2016) (02/20/2016 22:31:QS system process)
--- NOTE | 2016-02-21 04:48 | Antepartum Discharge Summary ---
Antepartum DC Datetime Report Generated by CPN: 02/21/2016 04:45 Diet: Regular (02/20/2016 23:32:Thu Barajas RN) Activity: Normal Activity (02/20/2016 23:32:Thu Barajas RN) Instructions Given To: Daniela Jin (02/20/2016 23:32:Thu Barajas RN) Instructions Understood: Patient Verbalized Understanding (02/20/2016 23:32:Thu Barajas RN) Referrals: None (02/20/2016 23:32:Thu Barajas RN) Educational Materials- Other: General Instructions from CPN given to pt. (02/20/2016 23:32:Thu Barajas RN) Discharged AMA: No (02/20/2016 23:32:Thu Barajas RN) Discharge Date/Time: 02/20/2016 23:36 (02/20/2016 23:32:Thu Barajas RN) Discharged To: Home (02/20/2016 23:32:Thu Barajas RN) Discharge Provider Name: Dr. Jeter (02/20/2016 23:32:Thu Barajas RN) Accompanied By: self-Dad is picking her up from ED entrance (02/20/2016 23:32:Thu Barajas RN) Discharge Method: Wheelchair (02/20/2016 23:32:Thu Barajas RN) Condition: Stable (02/20/2016 23:32:Thu Barajas RN) Follow Up With: [facility] (02/20/2016 23:32:Thu Barajas RN) Follow Up On: As Scheduled (02/20/2016 23:32:Thu Barajas RN) Follow Up Phone Number: [facility] - (02/20/2016 23:32:Thu Barajas RN) Comments: Given Percocet prior to d/c. Pt states has taken Percocet before without any problem. (02/20/2016 23:32:Thu Barajas RN) Contractions: Regular painful contractions every 5 minutes or less for one hour. Time your contractions from the beginning of one to the beginning of the next (02/20/2016 23:32:Thu Barajas RN) Gush of Fluid/Blood: Gush of fluid or blood from your vagina (it is normal to have spotting after vaginal exam or intercourse) (02/20/2016 23:32:Thu Barajas RN) Decreased Movement: Your baby is not moving as much as usual- 4 movements in 1 hour after drinking and resting on side (02/20/2016 23:32:Thu Barajas RN)
--- NOTE | 2016-02-21 13:17 | Non Stress Test Report ---
Non Stress Test Datetime Report Generated by Lenoer: 02/21/2016 13:17 Test Number: 3 Indication for Study: Other Indication for Study (NST) Other: LC Temperature - NST: 98.0 Urine Protein, NST: Negative Urine Ketones - NST: Negative Urine Glucose - NST: Negative Urine Blood - NST: Positive Monitor Explained: Monitor Explained; Test Explained; Patient Verbalized Understanding Time on Monitor: 02/20/2016 22:26 Time off Monitor: 02/20/2016 23:12 NST Interventions: PO Hydration Physician Notified NST: Dr. Jeter Movement : Present Contraction Frequency : occasional FHR Baseline : 140 Accelerations : 15X15 Decelerations : None Variability : Moderate 6-25bpm NST Review: Meets Criteria for Reactive NST NST Review and Verified By : Kylah Bryant RN NST Results: Reactive
--- NOTE | 2016-02-21 20:04 | Non Stress Test Report ---
Non Stress Test Datetime Report Generated by CPN: 02/21/2016 20:03 DEMOGRAPHIC Test Number: 3 EGA NST: 38.6 INDICATION Indication for Study: Other Indication for Study (NST) Other: LC VITAL SIGNS Temperature - NST: 98.0 URINE RESULTS Urine Protein, NST: Negative Urine Ketones - NST: Negative Urine Glucose - NST: Negative Urine Blood - NST: Positive MONITORING Monitor Explained: Monitor Explained; Test Explained; Patient Verbalized Understanding Time on Monitor: 02/20/2016 22:26 Time off Monitor: 02/20/2016 23:12 NST Duration: 46 NST INTERVENTIONS NST Interventions: PO Hydration Physician Notified NST: Dr. Jeter BABY A Movement : Present Contraction Frequency : occasional FHR Baseline : 140 Accelerations : 15X15 Decelerations : None Variability : Moderate 6-25bpm NST Review: Meets Criteria for Reactive NST NST Review and Verified By : SLara Bryant, RN NST Results: Reactive NST REPORT Report Trigger: Send Report
== END 2016-02-20 23:36 | disposition home or self-care (01) ==
LOC: LC 22:09
PROVIDERS: ATTEND Obstetrics & Gynecology
PROC: 4A1HXCZ Monitoring of Products of Conception, Cardiac Rate, External Approach (ICD-10-PCS; principal; 2016-02-20)
DX: O47.1 False labor at or after 37 completed weeks of gestation (principal); O99.613 Diseases of the digestive system complicating pregnancy, third trimester; K82.9 Disease of gallbladder, unspecified; Z3A.38 38 weeks gestation of pregnancy
CPT/HCPCS: 59025; 81005; G0479; S0119; 80307

== ENCOUNTER 2016-02-21 20:05 | Outpatient (CLI) | payer OTHER ==
[2016-02-21 20:43] LABS: APPEARANCE,URINE TURBID; BILIRUBIN,URINE NEGATIVE (NEGATIVE); GLUCOSE, URINE NEGATIVE (NEGATIVE); KETONES,URINE NEGATIVE (NEGATIVE); LEUKOCYTE ESTERASE,URINE NEGATIVE (NEGATIVE); NITRITE,URINE NEGATIVE (NEGATIVE); PROTEIN,URINE NEGATIVE (NEGATIVE); URINE SPECIFIC GRAVITY 1.014
[2016-02-21 20:49] LABS: AMNISURE (ROM) NEGATIVE (NEGATIVE)
[2016-02-21 20:57] LABS: URINE BARBITURATES SCREEN NEGATIVE; URINE METHADONE SCREEN NEGATIVE; URINE PHENCYCLIDINE SCREEN NEGATIVE
[2016-02-21] MEDS ORDERED: CITRIC ACID/SODIUM CITRATE ORAL SOLN 15 ML UDCUP ONE (21:11)
--- NOTE | 2016-02-21 21:56 | Non Stress Test Report ---
Non Stress Test Datetime Report Generated by CPN: 02/21/2016 21:56 DEMOGRAPHIC EGA NST: 39.0 INDICATION Indication for Study: Ordered by Provider VITAL SIGNS Temperature - NST: 99.9 Pulse - NST: 106 RESP - NST: 18 NBPSYS NST: 122 NBPDIA NST: 77 MONITORING Monitor Explained: Monitor Explained; Test Explained; Patient Verbalized Understanding Time on Monitor: 02/21/2016 20:13 Time off Monitor: 02/21/2016 21:44 NST Duration: 91 NST INTERVENTIONS NST Interventions: PO Hydration Physician Notified NST: Wang BABY A Movement : Present Contraction Frequency : 2-4 FHR Baseline : 135 Accelerations : 15X15 Decelerations : None Variability : Moderate 6-25bpm NST Review: Meets Criteria for Reactive NST NST Review and Verified By : Ghazala Barajas RNC NST Results: Reactive NST REPORT Report Trigger: Send Report
[2016-02-21] MEDS ORDERED: CITRIC ACID/SODIUM CITRATE ORAL SOLN 15 ML UDCUP PO ONE (22:00)
--- NOTE | 2016-02-22 04:47 | L&D Admission Assessment ---
LD ADM ASMT Datetime Report Generated by CPN: 02/22/2016 04:45 Assessment Type: Triage (02/21/2016 20:13:Vera Sanders RN) Weight (lb): 150 (02/21/2016 20:33:QS system process) Weight (kg): 68.2 (02/21/2016 20:33:QS system process) BMI: 26.6 (02/21/2016 20:33:QS system process) Pain Scale: 2 (02/21/2016 20:13:Vera Sanders RN) Pain Presence: Intermittent (02/21/2016 20:13:Vera Sanders RN) Pain Type: Contraction (02/21/2016 20:13:Vera Sanders RN) Pain Location: Abdomen (02/21/2016 20:13:Vera Sanders RN) Pain Goal: 2 (02/21/2016 20:13:Vera Sanders RN) Pain Related to Contraction: Yes (02/21/2016 20:13:Vera Sanders RN) Frequency (min): 2-4 (02/21/2016 21:14:Crystal Colp RN) Frequency (min): 1-4 (02/21/2016 20:27:Crystal Marilyn, RN) Duration (sec): 50-120 (02/21/2016 21:14:Crystal Marilyn RN) Duration (sec): 50-110 (02/21/2016 20:27:Crystal Marilyn, RN) Quality: Mild/Moderate (02/21/2016 21:14:Crystal Marilyn RN) Quality: Mild/Moderate (02/21/2016 20:27:Vera Sanders RN) Resting Tone [place]: Relaxed (02/21/2016 21:14:Vera Sanders RN) Resting Tone [place]: Relaxed (02/21/2016 20:27:Vera Sanders RN) Dilatation (cm): 3.0 (02/21/2016 21:39:Vera Sanders RN) Dilatation (cm): 3.0 (02/21/2016 20:25:Vera Sanders RN) Effacement (%): 80 (02/21/2016 21:39:Vera Sanders RN) Effacement (%): 80 (02/21/2016 20:25:Vera Sanders RN) Station: -2 (02/21/2016 21:39:Vera Sanders RN) Station: -2 (02/21/2016 20:25:Vera Sanders RN) Fern: Negative (02/21/2016 21:38:Vera Sanders RN) Level of Consciousness: Fully Conscious (02/21/2016 20:13:Vera Sanders RN) DTR's/Clonus: DTRs 2+; No Clonus (02/21/2016 20:13:Vera Sanders RN) Headache: Denies (02/21/2016 20:13:Vera Sanders RN) Dizziness: No (02/21/2016 20:13:Vera Sanders RN) Blurred Vision: No (02/21/2016 20:13:Vera Sanders RN) Extremity Numbness/Tingling : None (02/21/2016 20:13:Vera Sanders RN) Extremity Movement: Full Range of Motion (02/21/2016 20:13:Vera Sanders RN) Heart Rhythm: Regular (02/21/2016 20:13:Vera Sanders RN) Nailbeds: [place] (02/21/2016 20:13:Vera Sanders RN) Capillary Refill: Less than 3 Seconds (02/21/2016 20:13:Vera Sanders RN) Lower Extremities Edema Degree: None (02/21/2016 20:13:Vera Sanders RN) Upper Extremities Edema: None (02/21/2016 20:13:Vera Sanders RN) Upper Extremities Edema Degree: None (02/21/2016 20:13:Vera Sanders RN) Facial Edema: None (02/21/2016 20:13:Vera Sanders RN) Dg's Sign Left Leg: Negative (02/21/2016 20:13:Vera Sanders RN) Dg's Sign Right Leg: Negative (02/21/2016 20:13:Vera Sanders RN) DVT Risk Age: Age less than 41 years (02/21/2016 20:13:Vera Sanders RN) DVT Risk BMI: BMI<31 (02/21/2016 20:13:eVra Sanders RN) DVT Risk Surgery: None Applicable (02/21/2016 20:13:Vera Sanders RN) DVT Risk Other: None Applicable (02/21/2016 20:13:Vera Sanders RN) DVT Risk Total: 0 (02/21/2016 20:13:QS system process) DVT Risk Text: Low Risk (<10%) No specific measures, early ambulation (02/21/2016 20:13:QS system process) Respiratory Effort: Unlabored; Regular Rhythm; Equal Expansion (02/21/2016 20:13:Vera Sanders RN) Breath Sounds, Left: Clear and Equal (02/21/2016 20:13:Vera Sanders RN) Breath Sounds, Right: Clear and Equal (02/21/2016 20:13:Vera Sanders RN) Cough Productivity: None (02/21/2016 20:13:Vera Sanders RN) Nausea/Vomiting: Denies (02/21/2016 20:13:Vera Sanders RN) Bowel Sounds: Normoactive (02/21/2016 20:13:Vera Sanders RN) RUQ Epigastric Pain: Denies (02/21/2016 20:13:Vera Sanders RN) Bowel Patterns: Soft, Formed Stool (02/21/2016 20:13:Vera Sanders RN) Hemorrhoids: Present; Inflamed (02/21/2016 20:13:Vera Sanders RN) Diet Type: Regular diet (02/21/2016 20:13:Vera Sanders RN) Last Meal: 02/21/2016 16:00 (02/21/2016 20:13:Vera Sanders RN) Bladder: Nondistended (02/21/2016 20:13:Vera Sanders RN) Frequency of Urination: No (02/21/2016 20:13:Vera Sanders RN) Urination Burning: No (02/21/2016 20:13:Vera Sanders RN) CVA Tenderness: No (02/21/2016 20:13:Vera Sanders RN) Vaginal Bleeding: Normal Show (02/21/2016 20:13:Vera Sanders RN) Vaginal Discharge Amount: Small (02/21/2016 20:13:Vera Sanders RN) Vaginal Discharge Color: White (02/21/2016 20:13:Vera Sanders RN) Vaginal Discharge Odor: Non-Odorous (02/21/2016 20:13:Vera Sanders RN) Vaginal Discharge Character: Thick (02/21/2016 20:13:Vera Sanders RN) Skin Color: Normal for Race (02/21/2016 20:13:Vera Sanders RN) Skin Temperature: Warm (02/21/2016 20:13:Vera Sanders RN) Skin Moisture: Dry (02/21/2016 20:13:Vera Sanders RN) Michael Scale Sensory Perception: No Impairment- Responds to verbal commands. Has no sensory deficit which would limit ability to feel or voice pain or discomfort (02/21/2016 20:13:Vera Sanders RN) Michael Scale Moisture: Rarely Moist- Skin is usually dry. Linen only requires changing at routine intervals (02/21/2016 20:13:Vera Sanders RN) Michael Scale Activity: Walks Frequently- Walks outside the room at least twice a day and inside room at least every 2 hours during the day. (02/21/2016 20:13:Vera Sanders RN) Michael Scale Mobility: No Limitations- Makes major and frequent changes in position without assistance (02/21/2016 20:13:Vera Sanders RN) Michael Scale Nutrition: Excellent- Eats most of every meal. Never refuses a meal. Usually eats a total of 4 or more servings of meat and dairy products. Occasionally eats between meals. Does not require supplementation (02/21/2016 20:13:Vera Sanders RN) Michael Scale Friction and Shear: No Apparent Problem- Moves in bed and in chair independently and has sufficient muscle strength to lift up completely during move. Maintains good position in bed or chair at all times (02/21/2016 20:13:Vera Sanders RN) Michael Scale Total: 23 (02/21/2016 20:13:QS system process) Michael Scale Risk: No Risk of Pressure Ulcer Noted at this Time (02/21/2016 20:13:QS system process) Family Support: Significant Other supportive, at bedside frequently; Family supportive (02/21/2016 20:13:Vera Sanders RN) Call [place] Within Reach: Yes (02/21/2016 20:13:Vera Sanders RN) Side Rails Up: Yes (02/21/2016 20:13:Vera Sanders RN) Bed Wheels Locked: Yes (02/21/2016 20:13:Vera Sanders RN) Arm Bands Present: Yes (02/21/2016 20:13:Vera Sanders RN) Fall Risk History of Falling: (0) No (02/21/2016 20:13:Vera Sanders RN) Fall Risk Secondary Diagnosis: (0) No (02/21/2016 20:13:Vera Sanders RN) Fall Risk Ambulatory Aid: (0) None/Bedrest/Wheelchair/Nurse Assist (02/21/2016 20:13:Vera Sanders RN) Fall Risk IV Therapy: (0) No (02/21/2016 20:13:Vera Sanders RN) Fall Risk Gait: (0) Normal/Bedrest/Immobile (02/21/2016 20:13:Vera Sanders RN) Fall Risk Mental Status: (0) Oriented to Own Ability (02/21/2016 20:13:Vera Sanders RN) Fall Risk Score: 0 (02/21/2016 20:13:QS system process) Fall Risk Score Definition: No Risk: No action required (02/21/2016 20:13:QS system process) Recent Exp Communicable Disease: No (02/21/2016 20:13:Vera Sanders RN) Cough or Fever: No (02/21/2016 20:13:Vera Sanders RN) Foreign Travel Past 10 Days: No (02/21/2016 20:13:Vera Sanders RN) Open Wounds or Sores: No (02/21/2016 20:13:Vera Sanders RN) Prior Antibiotic Resistance Tx: No (02/21/2016 20:13:Vera Sanders RN) Cultures Obtained: Not Applicable (02/21/2016 20:13:Vera Sanders RN) Isolation Initiated: No (02/21/2016 20:13:Vera Sanders RN) Pt/Family Education: Not Applicable (02/21/2016 20:13:Vera Sanders RN) FHR Baseline Rate (bpm) Baby A: 130 (02/21/2016 21:14:Vera Sanders RN) FHR Baseline Rate (bpm) Baby A: 130 (02/21/2016 20:27:Vera Sanders RN) Variability Baby A: Moderate 6-25 bpm (02/21/2016 21:14:Vera Sanders RN) Variability Baby A: Moderate 6-25 bpm (02/21/2016 20:27:Vera Sanders RN) Accelerations Baby A: 15X15 (02/21/2016 21:14:Vera Sanders RN) Accelerations Baby A: 15X15 (02/21/2016 20:27:Vera Sanders RN) Decelerations Baby A: None (02/21/2016 21:14:Vera Sanders RN) Decelerations Baby A: None (02/21/2016 20:27:Vera Sanders RN)
--- NOTE | 2016-02-22 04:47 | L&D General Admission ---
General Admit Datetime Report Generated by CPN: 02/22/2016 04:45 Para: 2 (02/21/2016 21:48:Vera Sanders RN) Baby, Number in Womb: 1 (02/21/2016 21:48:Vera Sanders RN) Height (in): 63 (02/21/2016 20:33:QS system process)
--- NOTE | 2016-02-22 04:47 | Antepartum Discharge Summary ---
Antepartum DC Datetime Report Generated by CPN: 02/22/2016 04:45 Diet: Regular (02/21/2016 21:48:Vera Sanders RN) Activity: Normal Activity (02/21/2016 21:48:Vera Sanders RN) Instructions Understood: Patient Verbalized Understanding; Support Person Verbalized Understanding (02/21/2016 21:48:Vera Sanders RN) Referrals: None (02/21/2016 21:48:Vera Sanders RN) Educational Materials- Other: The labor process (02/21/2016 21:48:Vera Sanders RN) Discharged AMA: No (02/21/2016 21:48:Vera Sanders RN) Discharge Date/Time: 02/21/2016 21:49 (02/21/2016 21:48:Vera Sanders RN) Discharged To: Home (02/21/2016 21:48:Vera Sanders RN) Discharge Provider Name: Kathleen (02/21/2016 21:48:Vera Sanders RN) Accompanied By: (02/21/2016 21:48:Vera Sanders RN) Discharge Method: Ambulatory (02/21/2016 21:48:Vera Sanders RN) Condition: Stable (02/21/2016 21:48:Vera Sanders RN) Follow Up With: [facility] (02/21/2016 21:48:Vrea Sanders RN) Follow Up On: As Scheduled (02/21/2016 21:48:Vera Sanders RN) Comments: Report given to Dr. Wang, received orders for pt to DC home with labor precautions. Educated pt on when to return and labor signs. Pt verbalized understanding. Pt left ambulatory with . (02/21/2016 21:48:Vera Sanders RN)
--- NOTE | 2016-02-22 04:47 | L&D Discharge Summary ---
OB Discharge Summary Datetime Report Generated by CPN: 02/22/2016 04:45 DISCHARGE DIAGNOSIS Diagnosis/Symptoms: False Labor Diagnoses/Symptoms Other: Not in labor Treatment/Procedures Other: Bicitra 15 ml PO for reflux Gestation: 39.0 Number of Babies in Womb: 1 Parity: 2 DIET/ACTIVITY/RESTRICTIONS Diet: Regular Activity: Normal Activity Activity Restrictions: No Sexual Activity; Nothing in Vagina - [place], Tampons, [place] TEACHING/INSTRUCTIONS/REFERRALS Instructions Given To: Daniela Jin Instructions Understood: Patient Verbalized Understanding; Support Person Verbalized Understanding Referrals: None Educational Materials- Other: The labor process DISCHARGE INFORMATION Discharged AMA: No Discharge Date/Time: 02/21/2016 21:49 Discharged To: Home Discharge Provider Name: Kathleen Accompanied By: Discharge Method: Ambulatory Condition: Stable FOLLOW UP INFORMATION Follow Up With: [facility] Follow Up On: As Scheduled Follow Up Phone Number: [facility] - Comments: Report given to Dr. Wang, received orders for pt to DC home with labor precautions. Educated pt on when to return and labor signs. Pt verbalized understanding. Pt left ambulatory with . GENERAL INSTR-CALL PROVIDER IF: Contractions: Regular painful contractions every 5 minutes or less for one hour. Time your contractions from the beginning of one to the beginning of the next Gush of Fluid/Blood: Gush of fluid or blood from your vagina (it is normal to have spotting after vaginal exam or intercourse) Decreased Movement: Your baby is not moving as much as usual- 4 movements in 1 hour after drinking and resting on side
--- NOTE | 2016-02-22 04:47 | L&D Current Admission ---
Current Admit Datetime Report Generated by [facility]: 02/22/2016 04:45 Chief Complaint: Contractions; Suspected Rupture of Membranes (02/21/2016 20:13:Vera Sanders RN)
--- NOTE | 2016-02-22 04:47 | L&D Flow Sheet ---
LD Flowsheet Datetime Report Generated by CPN: 02/22/2016 04:45 Datetime: 02/21/2016 21:42 Stage of : OB Triage (Vera Blackburn RN) Provider Reviewed Strip: Yes (Vera Blackburn RN) Strip Reviewed by: Romain blackburn RN (Vera Blackburn RN) Communication: RN Reviewed Strip; Provider Orders Received (Vera Blackburn RN) Provider Notified (Name): Kathleen (Vera Blackburn RN) Notification Reason: Status Update; Status; Membrane Status; Uterine Activity; Pain; Maternal Vital Sign Change; Lab/Diagnostic Study (Vera Blackburn RN) Communication Comments: Report given to Dr. Wang, received orders for pt to DC home with labor precautions. Educated pt on when to return and labor signs. Pt verbalized understanding. Pt left ambulatory with . (Vera Blackburn RN) Datetime: 02/21/2016 21:39 Dilatation (cm): 3.0 (Crystal [place], RN) Effacement (%): 80 (Crystal [place], RN) Station: -2 (Crystal [place], RN) Exam by: Romain Blackburn RN (Crystal Marilyn, RN) Vaginal Bleeding: None (Crystal [place], RN) Cervix, Consistency: Moderate (Crystal [place], RN) Cervix, Position: Posterior (Crystal [place], RN) Datetime: 02/21/2016 21:38 Fern: Negative (Crystal Marilyn, RN) Datetime: 02/21/2016 21:35 Stage of : OB Triage (Crystal Marilyn, RN) NBP Sys/Sharyn/Mean (mmHg): 111 (QS system process) : 65 (QS system process) : 82 (QS system process) Pulse: 106 (QS system process) LaborFlag: OB Triage (QS system process) Datetime: 02/21/2016 21:14 Monitor Mode: External (Vera [place], RN) Monitor Interventions for UA: [place] Adjusted (Crystal [place], RN) Frequency (min): 2-4 (Crystal Marilyn, RN) Quality: Mild/Moderate (Crystal [place], RN) Duration (sec): 50-120 (Crystal Marilyn, RN) Duration Criteria: Less than Two 120 Second Contractions (Crystal [place], RN) Resting Tone (Palpate): Relaxed (Crystal [place], RN) Monitor Mode: External US (Vera Marilyn, RN) Monitor Interventions for FHR: Ultrasound Adjusted (Crystal Marilyn, RN) FHR Baseline Rate : 130 (Crystal Marilyn, RN) Variability: Moderate 6-25 bpm (Crystal Marilyn, RN) Accelerations: 15X15 (Crystal Marilyn, RN) Decelerations: None (Crystal [place], RN) Patient Position/Activity: Left Tilt; Semi-Fowlers (Crystal [place], RN) Datetime: 02/21/2016 21:13 Antiemetics/Antacids: Bicitra 15 ml PO (Vera Blackburn, RN) Datetime: 02/21/2016 21:07 Stage of : OB Triage (Vera Blackburn RN) Strip Reviewed by: Romain Blackburn RN (Vera Blackburn RN) Communication: Provider Orders Received (Vera Blackburn RN) Provider Notified (Name): Wang (Vera Blackburn RN) Notification Reason: Patient Request (Vera Blackburn RN) Communication Comments: Pt reporting reflux, received orders for bicitra 15 ml PO (Vera Blackburn RN) Datetime: 02/21/2016 20:55 Membrane Comments: Fern collected and sent (Vera Blackburn RN) Datetime: 02/21/2016 20:27 Monitor Mode: External; Palpation (Crystal Marilyn, RN) Frequency (min): 1-4 (Crystal Marilyn, RN) Quality: Mild/Moderate (Crystal [place], RN) Duration (sec): 50-110 (Crystal [place], RN) Duration Criteria: Less than Two 120 Second Contractions (Crystal [place], RN) Resting Tone (Palpate): Relaxed (Crystal [place], RN) Monitor Mode: External US (Crystal [place], RN) FHR Baseline Rate : 130 (Crystal Marilyn, RN) Variability: Moderate 6-25 bpm (Crystal Marilyn, RN) Accelerations: 15X15 (Crystal [place], RN) Decelerations: None (Crystal [place], RN) Patient Position/Activity: Left Tilt; Semi-Fowlers (Crystal [place], RN) Datetime: 02/21/2016 20:25 Dilatation (cm): 3.0 (Crystal [place], RN) Effacement (%): 80 (Vera Blackburn RN) Station: -2 (Vera Blackburn RN) Exam by: Romain Blackburn RN (Vera Blackburn RN) Vaginal Bleeding: None (Vera Blackburn RN) Cervix, Consistency: Moderate (Vera Blackburn RN) Cervix, Position: Anterior (Vera Blackburn RN) Datetime: 02/21/2016 20:15 NBP Sys/Sharyn/Mean (mmHg): 122 (QS system process) : 77 (QS system process) : 94 (QS system process) Pulse: 130 (QS system process) LaborFlag: Antepartum (QS system process) Datetime: 02/21/2016 20:13 Pain Scale: 2 (Vera Blackburn RN) Pain Presence: Intermittent (Vera Blackburn RN) Pain Type: Contraction (Vera Blackburn RN) Pain Location: Abdomen (Vera Blackburn RN) Pain Goal: 2 (Vera Blackburn RN) Pain Relief Measures: Comfort Measures (Vera Blackburn RN) Pain Coping: Talking Through Contractions (Vera Blakcburn RN) Vaginal Bleeding: Normal Show (Vera Blackburn RN) Level of Consciousness: Fully Conscious (Vera Blackburn RN) DTR's/Clonus: DTRs 2+; No Clonus (Vera Blackburn RN) Headache: Denies (Vera Blackburn RN) Breath Sounds, Left: Clear and Equal (Vera Blackburn RN) Breath Sounds, Right: Clear and Equal (Vera Blackburn RN) Nausea/Vomiting: Denies (Vera Blackburn RN) RUQ Epigastric Pain: Denies (Vera Blackburn RN) LaborFlag: Antepartum (QS system process)
--- NOTE | 2016-02-23 04:47 | L&D Discharge Summary ---
OB Discharge Summary Datetime Report Generated by CPN: 02/23/2016 04:45 DISCHARGE DIAGNOSIS Diagnosis/Symptoms: False Labor Diagnoses/Symptoms Other: Not in labor Treatment/Procedures Other: Bicitra 15 ml PO for reflux Gestation: 39.1 Number of Babies in Womb: 1 Parity: 2 DIET/ACTIVITY/RESTRICTIONS Diet: Regular Activity: Normal Activity Activity Restrictions: No Sexual Activity; Nothing in Vagina - [place], Tampons, [place] TEACHING/INSTRUCTIONS/REFERRALS Instructions Given To: Daniela Jin Instructions Understood: Patient Verbalized Understanding; Support Person Verbalized Understanding Referrals: None Educational Materials- Other: The labor process DISCHARGE INFORMATION Discharged AMA: No Discharge Date/Time: 02/21/2016 21:49 Discharged To: Home Discharge Provider Name: Kathleen Accompanied By: Discharge Method: Ambulatory Condition: Stable FOLLOW UP INFORMATION Follow Up With: [facility] Follow Up On: As Scheduled Follow Up Phone Number: [facility] - Comments: Report given to Dr. Wang, received orders for pt to DC home with labor precautions. Educated pt on when to return and labor signs. Pt verbalized understanding. Pt left ambulatory with . GENERAL INSTR-CALL PROVIDER IF: Contractions: Regular painful contractions every 5 minutes or less for one hour. Time your contractions from the beginning of one to the beginning of the next Gush of Fluid/Blood: Gush of fluid or blood from your vagina (it is normal to have spotting after vaginal exam or intercourse) Decreased Movement: Your baby is not moving as much as usual- 4 movements in 1 hour after drinking and resting on side
== END 2016-02-21 21:50 | disposition home or self-care (01) ==
LOC: LC 20:05
PROVIDERS: ATTEND Student in an Organized Health Care Education/Training Program
DX: O47.1 False labor at or after 37 completed weeks of gestation (principal); Z3A.39 39 weeks gestation of pregnancy
CPT/HCPCS: 59025; 84112; 81005; 80307; Q0114; J3490

== ENCOUNTER 2016-02-22 15:59 | Inpatient (IN) | payer OTHER ==
[2016-02-22 16:42] LABS: AMORPHOUS SEDIMENT,URINE TRACE /HPF; APPEARANCE,URINE TURBID; BILIRUBIN,URINE NEGATIVE (NEGATIVE); GLUCOSE, URINE NEGATIVE (NEGATIVE); KETONES,URINE NEGATIVE (NEGATIVE); LEUKOCYTE ESTERASE,URINE LARGE (NEGATIVE); NITRITE,URINE NEGATIVE (NEGATIVE); PROTEIN,URINE NEGATIVE (NEGATIVE); URINE SPECIFIC GRAVITY 1.014; UROBILINOGEN,URINE NEGATIVE mg/dL (<2.0)
[2016-02-22 16:47] LABS: ABSOLUTE LYMPHOCYTES (AUTO) 0.9 10^3/uL (0.5-4.7); ABSOLUTE MONOCYTES (AUTO) 0.5 10^3/uL (0.1-1.4); ABSOLUTE NEUT (AUTO) 5.5 10^3/uL (1.7-8.2); BASOPHILS % (AUTO) 0.4 % (0-2); EOSINOPHILS % (AUTO) 0.5 % (0-6); HEMATOCRIT 29.7 % (36.0-47.0); HEMOGLOBIN 9.9 g/dL (12.0-15.5); LYMPHOCYTES % (AUTO) 12.4 % (13-45); MEAN CORPUSCULAR HEMOGLOBIN 27.4 pg (27.0-33.4); MEAN CORPUSCULAR HGB CONC 33.4 g/dL (32.0-36.0); MEAN CORPUSCULAR VOLUME 82 fl (80-97); MONOCYTES % (AUTO) 7.4 % (3-13); RED BLOOD COUNT 3.62 10^6/uL (3.72-5.28); SEGMENTED NEUTROPHILS % (AUTO) 79.3 % (42-78)
[2016-02-22 17:01] LABS: URINE BARBITURATES SCREEN NEGATIVE; URINE METHADONE SCREEN NEGATIVE; URINE PHENCYCLIDINE SCREEN NEGATIVE
[2016-02-22 17:06] LABS: ALANINE AMINOTRANSFERASE 34 U/L (9-52); ALBUMIN 3.6 g/dL (3.5-5.0); ALKALINE PHOSPHATASE 114 U/L (38-126); ANION GAP 8 (5-19); ASPARTATE AMINO TRANSFERASE 24 U/L (14-36); BILIRUBIN,TOTAL 0.4 mg/dL (0.2-1.3); BLOOD UREA NITROGEN 7 mg/dL (7-20); CARBON DIOXIDE 26 mmol/L (22-30); CHLORIDE 104 mmol/L (98-107); CREATININE RESULT 0.48 mg/dL (0.52-1.25); GLUCOSE 101 mg/dL (75-110); LDH 475 U/L (313-618); POTASSIUM 3.5 mmol/L (3.6-5.0); SODIUM 138.3 mmol/L (137-145); TOTAL PROTEIN 6.3 g/dL (6.3-8.2); URIC ACID 3.2 mg/dL (2.5-6.2)
[2016-02-22] MEDS ORDERED: RINGERS SOLUTION,LACTATED 1,000 ML IV PRN (17:39)
[2016-02-22] MEDS ORDERED: RINGERS SOLUTION,LACTATED 300 ML IV ONE (17:39)
[2016-02-22] MEDS ORDERED: RINGERS SOLUTION,LACTATED 1,000 ML IV ONE (17:39)
[2016-02-22] MEDS ORDERED: OXYTOCIN/NORMAL SALINE 1,000 ML IV PRN ×2 (17:39→18:53)
[2016-02-22] MEDS ORDERED: CITRIC ACID/SODIUM CITRATE ORAL SOLN 15 ML UDCUP ONE (17:57)
[2016-02-22] MEDS ORDERED: PENICILLIN G-K 5 MILLION UNIT VIAL ONE (18:12)
[2016-02-22] MEDS ORDERED: OXYTOCIN/NORMAL SALINE 0 UNIT/0 ML RTUINJ ONE (18:57)
[2016-02-22] MEDS: RINGERS SOLUTION,LACTATED 1,000 ML IV PRN ×4 (19:05→22:58)
[2016-02-22] MEDS ORDERED: ONDANSETRON HCL INJ/PF 4 MG/2 ML SDV IV ONE (19:47)
[2016-02-22] MEDS ORDERED: BENZOIN/ALOE VERA/STORAX/TOLU TINCTURE 60 ML TP PRN (19:48)
[2016-02-22] MEDS ORDERED: EPHEDRINE SULFATE INJ 50 MG/1 ML AMPULE IV PRN (19:48)
[2016-02-22] MEDS ORDERED: FENTANYL/BUPIVACAINE/NS/PF 100 ML EPI PRN (19:48)
[2016-02-22] MEDS ORDERED: BUPIVACAINE HCL 0.25 % INJ/PF (2.5 MG/1 ML) 30 ML VIAL INFIL ONE (19:48)
[2016-02-22] MEDS ORDERED: ONDANSETRON HCL INJ/PF 4 MG/2 ML SDV ONE (19:57)
--- NOTE | 2016-02-22 20:01 | L&D Flow Sheet ---
LD Flowsheet Datetime Report Generated by CPN: 02/22/2016 20:00 Datetime: 02/22/2016 19:49 NBP Sys/Sharyn/Mean (mmHg): 125 (QS system process) : 82 (QS system process) : 96 (QS system process) Pulse: 102 (QS system process) LaborFlag: OB Triage (QS system process) Datetime: 02/22/2016 19:48 Communication Comments: Dr Villarreal on unit, strip reviewed. (Jenny Li RN) Datetime: 02/22/2016 19:45 Monitor Mode: External; Palpation (Jenny Li, RN) Frequency (min): x2 (Rubarringtonandra Li, RN) Duration (sec): 50-70 (Rucsandra Jen, RN) Resting Tone (Palpate): Relaxed (Rucsandra Jen, RN) Monitor Mode: External US (Rucsandra Li, RN) FHR Baseline Rate : 135 (Rucsandra Jen, RN) Variability: Moderate 6-25 bpm (Rucsandra Jen, RN) Accelerations: 15X15 (Rucsandra Jen, RN) Decelerations: None (Rucsandra Jen, RN) Pitocin (milliunit): Pitocin Increased to (milliunits) @ 4 (Rucsandra Jen, RN) Datetime: 02/22/2016 19:36 NBP Sys/Sharyn/Mean (mmHg): 130 (QS system process) : 69 (QS system process) : 92 (QS system process) Pulse: 107 (QS system process) LaborFlag: OB Triage (QS system process) Datetime: 02/22/2016 19:30 Monitor Mode: External; Palpation (Jenny Li RN) Frequency (min): x2 (Jenny Li RN) Quality: Mild (Jenny Li RN) Duration (sec): 70-110 (Jenny Li RN) Resting Tone (Palpate): Relaxed (Jenny Li RN) Monitor Mode: External US (Jenny Li, SANNA) FHR Baseline Rate : 130 (Jenny Li, RN) Variability: Moderate 6-25 bpm (Jenny Li, RN) Accelerations: 15X15 (Jenny Li, RN) Decelerations: None (Jenny Li, SANNA) Pain Scale: 0 (Jenny Li RN) Pain Presence: None/Denies (Jenny Li, SANNA) Pain Type: N/A (Jenny Li, SANNA) Level of Consciousness: Fully Conscious (Jenny Li, SANNA) DTR's/Clonus: DTRs 2+; No Clonus (Jenny Li, RN) Headache: Denies (Jenny Li, RN) Breath Sounds, Left: Clear and Equal (Jenny Li RN) Breath Sounds, Right: Clear and Equal (Jenny Li, RN) Nausea/Vomiting: Present (Jenny Li RN) RUQ Epigastric Pain: Denies (Jenny Li, RN) LaborFlag: OB Triage (QS system process) Datetime: 02/22/2016 19:28 Maternal Comments: pt back to bed without incident. (Washington[place] Li, RN) Datetime: 02/22/2016 19:22 I/O Interventions: Up to BR ([place] Li, RN) Datetime: 02/22/2016 19:21 Pitocin (milliunit): Pitocin Remains (milliunits) @ 2 (Kari Wright RN) Communication Comments: Bedside shift report given to Alex Li RN. Care relinquished (Kari Wright, RN) Datetime: 02/22/2016 19:19 NBP Sys/Sharyn/Mean (mmHg): 129 (QS system process) : 86 (QS system process) : 102 (QS system process) Pulse: 106 (QS system process) LaborFlag: OB Triage (QS system process) Datetime: 02/22/2016 19:15 Monitor Mode: External (Kari Wright RN) Frequency (min): irregular (Kari Wright RN) Quality: Mild (Kari Wright RN) Duration (sec): 60-80 (Kari Wright RN) Resting Tone (Palpate): Relaxed (Kari Wright RN) Monitor Mode: External US (Kari Wright RN) FHR Baseline Rate : 135 (Kari Wright RN) Variability: Moderate 6-25 bpm (Kari Wright RN) Accelerations: 15X15 (Kari Wright RN) Decelerations: None (Kari Wright RN) Datetime: 02/22/2016 19:06 NBP Sys/Sharyn/Mean (mmHg): 120 (QS system process) : 73 (QS system process) : 91 (QS system process) Pulse: 105 (QS system process) LaborFlag: OB Triage (QS system process) Datetime: 02/22/2016 19:00 Pitocin (milliunit): Pitocin Started (milliunits) @ 2; Pitocin 20 Units in 1000ml NS (Kari Wright, RN) Datetime: 02/22/2016 18:51 NBP Sys/Sharyn/Mean (mmHg): 113 (QS system process) : 69 (QS system process) : 85 (QS system process) Pulse: 96 (QS system process) LaborFlag: OB Triage (QS system process) Datetime: 02/22/2016 18:45 Monitor Mode: External (Kari Wright RN) Frequency (min): 8-10 (Kari Wright RN) Quality: Mild (Kari Wright RN) Duration (sec): 60-80 (Kari Wright RN) Resting Tone (Palpate): Relaxed (Kari Wright RN) Monitor Mode: External US (Kari Wright RN) FHR Baseline Rate : 135 (Kari Wright, RN) Variability: Moderate 6-25 bpm (Kari Wright, RN) Accelerations: 15X15 (Kari Wright, RN) Decelerations: None (Kari Wright, RN) Datetime: 02/22/2016 18:35 Communication Comments: labs reviewed. GBS negative. GBS positive in previous 2013. Orders to start Pitocin and increase every 15 minute per protocol per H. Boris CNM (Kari Wright RN) Datetime: 02/22/2016 18:34 NBP Sys/Sharyn/Mean (mmHg): 117 (QS system process) : 67 (QS system process) : 86 (QS system process) Pulse: 97 (QS system process) LaborFlag: OB Triage (QS system process) Datetime: 02/22/2016 18:22 Patient Care Comments: IV fluids decreased to 125ml/hr (Kari Wright, RN) Datetime: 02/22/2016 18:21 Monitor Interventions for FHR: Ultrasound Adjusted (Kari Wright RN) Comments: Pt sitting straight up in bed, tracing maternal (Kari Wright RN) Communication: RN at Bedside (Kari Wright RN) Datetime: 02/22/2016 18:19 NBP Sys/Sharyn/Mean (mmHg): 116 (QS system process) : 84 (QS system process) : 96 (QS system process) Pulse: 105 (QS system process) LaborFlag: OB Triage (QS system process) Datetime: 02/22/2016 18:15 Monitor Mode: External (Kari Wright RN) Frequency (min): x1 (Kari Wright RN) Quality: Mild (Kari Wright RN) Duration (sec): 100 (Kari Wright RN) Resting Tone (Palpate): Relaxed (Kari Wright RN) Monitor Mode: External US (Kari Wright RN) FHR Baseline Rate : 135 (Kari Wright RN) Variability: Moderate 6-25 bpm (Kari Wright RN) Accelerations: 15X15 (Kari Wright RN) Decelerations: None (Kari Wright RN) Procedures: Consents Signed (Kari Wright RN) Datetime: 02/22/2016 18:05 NBP Sys/Sharyn/Mean (mmHg): 118 (QS system process) : 89 (QS system process) : 101 (QS system process) Pulse: 130 (QS system process) LaborFlag: OB Triage (QS system process) Datetime: 02/22/2016 18:02 Antiemetics/Antacids: Bicitra 15 ml PO (Kari Wright RN) Patient Care Comments: IV started. IV bolus started (Kari Wright RN) Datetime: 02/22/2016 18:01 Communication Comments: Respiratory at bedside for EKG (Kari Wright, RN) Datetime: 02/22/2016 17:45 Monitor Mode: External (Kari Wright, RN) Frequency (min): irregular (Kari Wright RN) Quality: Mild (Kari Wright, RN) Duration (sec): 30-60 (Kari Wright, RN) Resting Tone (Palpate): Relaxed (Kari Wright, RN) Monitor Mode: External US (Kari Wright, RN) FHR Baseline Rate : 135 (Kari Wright, RN) Variability: Moderate 6-25 bpm (Kari Wright, RN) Accelerations: 10X10 (Kari Wright, RN) Decelerations: None (Kari Wright, RN) Datetime: 02/22/2016 17:35 NBP Sys/Sharyn/Mean (mmHg): 131 (QS system process) : 74 (QS system process) : 97 (QS system process) Pulse: 110 (QS system process) LaborFlag: OB Triage (QS system process) Datetime: 02/22/2016 17:29 Dilatation (cm): 3.0 (Kari Wright RN) Effacement (%): 50 (Kari Wright RN) Station: -2 (Kari Wright RN) Exam by: Joie Escalante CNPrachi (Kari Wright RN) Communication Comments: Joie Escalante CNM at bedside (Kari Wright RN) Datetime: 02/22/2016 17:28 Pulse: 100 (QS system process) SpO2 (%): 100 (QS system process) LaborFlag: OB Triage (QS system process) Datetime: 02/22/2016 17:23 Pulse: 102 (QS system process) SpO2 (%): 100 (QS system process) LaborFlag: OB Triage (QS system process) Datetime: 02/22/2016 17:19 NBP Sys/Sharyn/Mean (mmHg): 99 (QS system process) : 65 (QS system process) : 77 (QS system process) Pulse: 113 (QS system process) Communication Comments: Report given to Joie Escalante [facility]. Orders for stat EKG (Kari Wright RN) LaborFlag: OB Triage (QS system process) Datetime: 02/22/2016 17:18 Pulse: 115 (QS system process) SpO2 (%): 100 (QS system process) LaborFlag: OB Triage (QS system process) Datetime: 02/22/2016 17:17 Communication Comments: Pt states she feels like an elephant is on her chest. Lungs sounds clear. Heart sounds regular. (Kari Wright, RN) Datetime: 02/22/2016 17:15 Monitor Mode: External (Kari Wright, RN) Frequency (min): x3 (Kari Wright, RN) Quality: Mild (Kari Wright, RN) Duration (sec): 60-100 (Karicornelius Wright, RN) Resting Tone (Palpate): Relaxed (Kari Wright, RN) Monitor Mode: External US (Kari Wright, RN) FHR Baseline Rate : 145 (Karicornelius Wright, RN) Variability: Moderate 6-25 bpm (Kari Wright, RN) Accelerations: 15X15 (Kari Wright, RN) Decelerations: None (Kari Wright, RN) Datetime: 02/22/2016 17:04 NBP Sys/Sharyn/Mean (mmHg): 98 (QS system process) : 62 (QS system process) : 76 (QS system process) Pulse: 102 (QS system process) LaborFlag: OB Triage (QS system process) Datetime: 02/22/2016 16:51 NBP Sys/Sharyn/Mean (mmHg): 95 (QS system process) : 63 (QS system process) : 72 (QS system process) Pulse: 107 (QS system process) LaborFlag: OB Triage (QS system process) Datetime: 02/22/2016 16:48 Patient Position/Activity: Right Lateral (Kari Wright, RN) Datetime: 02/22/2016 16:45 Monitor Mode: External (Kari Wright, RN) Frequency (min): irritability (Kari Wrihgt, RN) Resting Tone (Palpate): Relaxed (Kari Wright, RN) Monitor Mode: External US (Kari Wright, RN) FHR Baseline Rate : 140 (Kari Wright, RN) Variability: Moderate 6-25 bpm (Kari Wright, RN) Accelerations: 10X10 (Kari Wright, RN) Decelerations: None (Kari Wright, RN) Datetime: 02/22/2016 16:34 NBP Sys/Sharyn/Mean (mmHg): 111 (QS system process) : 78 (QS system process) : 91 (QS system process) Pulse: 102 (QS system process) LaborFlag: OB Triage (QS system process) Datetime: 02/22/2016 16:25 Pain Scale: 0 (Kari Wright RN) Pain Presence: None/Denies (Kari Wright RN) Pain Type: N/A (Kari Wright RN) Vaginal Bleeding: None (Kari Wright RN) Level of Consciousness: Fully Conscious (Kari Wright RN) DTR's/Clonus: DTRs 2+; No Clonus (Kari Wright RN) Headache: Generalized (Kari Wright RN) Breath Sounds, Left: Clear and Equal (Kari Wright RN) Breath Sounds, Right: Clear and Equal (Kari Wright RN) Nausea/Vomiting: Denies (Kari Wright RN) RUQ Epigastric Pain: Denies (Kari Wright RN) Instructional Method: Verbal; Patient Instructed; Family/Support Person Instructed; Verbalized Understanding (Kari Wright RN) Plan of Care: Plan of Care Discussed (Kari Wright RN) Unit Routine: [place] to Room; Call [place]; Bed; Handwashing; Monitoring; Bathroom Privileges (Kari Wright RN) LaborFlag: OB Triage (QS system process) Datetime: 02/22/2016 16:24 Patient Position/Activity: Left Lateral (Kari Wright RN) I/O Interventions: Clear Liquids Given (Kari Wright RN)
--- NOTE | 2016-02-22 20:37 | EKG REPORT ---
SEVERITY:- BORDERLINE ECG - SINUS TACHYCARDIA BORDERLINE T WAVE ABNORMALITIES : Confirmed by: Arash Ross 22-Feb-2016 20:36:38
[2016-02-22] MEDS ORDERED: BUPIVACAINE HCL 0.25 % INJ/PF (2.5 MG/1 ML) 30 ML VIAL ONE (20:40)
[2016-02-22] MEDS ORDERED: FENTANYL/BUPIVACAINE/NS/PF 200 MCG/100 ML RTUINJ EPI ONE (20:40)
[2016-02-22] MEDS ORDERED: EPHEDRINE SULFATE INJ 50 MG/1 ML AMPULE ONE (20:40)
[2016-02-22] MEDS ORDERED: OXYTOCIN/NORMAL SALINE 20 UNIT/1,000 ML RTUINJ ONE (23:18)
[2016-02-22] MEDS ORDERED: LIDOCAINE 1% INJ-PF (10 MG/ML) 30 ML SDV ONE (23:18)
[2016-02-22] MEDS ORDERED: MISOPROSTOL 0.2 MG TABLET ONE ×2 (23:18)
[2016-02-23] MEDS ORDERED: DIPHENHYDRAMINE HCL 25 MG CAPSULE PO PRN (00:08)
[2016-02-23] MEDS ORDERED: ACETAMINOPHEN WITH CODEINE #3 TABLET PO PRN (01:30)
[2016-02-23] MEDS ORDERED: BENZOCAINE/MENTHOL AEROSOL SPRAY 56 ML TOP PRN (01:30)
[2016-02-23] MEDS ORDERED: DIBUCAINE 1% OINTMENT 28 GM TP PRN (01:30)
[2016-02-23] MEDS ORDERED: MEASLES,MUMPS&RUBELLA VACC/PF 0.5 ML VIAL SUBCUT PRN (01:30)
[2016-02-23] MEDS ORDERED: DIPH/PERTUSS(ACELL)/TETANUS VAC/PF 0.5 ML SYR (>=10YO) IM PRN (01:30)
[2016-02-23] MEDS ORDERED: OXYTOCIN/NORMAL SALINE 1,000 ML IV PRN (01:30)
[2016-02-23] MEDS ORDERED: ZOLPIDEM TARTRATE 5 MG TABLET PO PRN (01:30)
[2016-02-23] MEDS ORDERED: IBUPROFEN 800 MG TABLET ONE (01:48)
[2016-02-23] MEDS: IBUPROFEN 800 MG TABLET PO SCH ×3 (01:49→21:43)
[2016-02-23] MEDS ORDERED: BENZOCAINE/MENTHOL AEROSOL SPRAY 56 ML ONE (01:55)
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
--- NOTE | 2016-02-23 04:47 | L&D Admission Assessment ---
LD ADM ASMT Datetime Report Generated by CPN: 02/23/2016 04:45 Assessment Type: Ongoing Assessment (02/22/2016 19:30:Jenny Li RN) Assessment Type: Admission Assessment (02/22/2016 16:25:Kari Wright RN) Weight (lb): 150 (02/23/2016 02:25:QS system process) Weight (lb): 150 (02/22/2016 16:23:QS system process) Weight (lb): 150 (02/22/2016 16:22:QS system process) Weight (kg): 68.2 (02/23/2016 02:25:QS system process) Weight (kg): 68.2 (02/22/2016 16:23:QS system process) Weight (kg): 68.2 (02/22/2016 16:22:QS system process) Total Wt Gain (lb): 33 (02/23/2016 02:25:QS system process) Total Wt Gain (lb): 33 (02/22/2016 16:23:QS system process) Total Wt Gain (lb): 33 (02/22/2016 16:22:QS system process) Wt Gain (kg): 14.8 (02/23/2016 02:25:QS system process) Wt Gain (kg): 14.8 (02/22/2016 16:23:QS system process) Wt Gain (kg): 14.8 (02/22/2016 16:22:QS system process) BMI: 26.6 (02/23/2016 02:25:QS system process) BMI: 26.6 (02/22/2016 16:23:QS system process) BMI: 26.6 (02/22/2016 16:22:QS system process) Pain Scale: 2 (02/23/2016 02:18:Jenny Li RN) Pain Scale: 2 (02/23/2016 01:51:Jenny Li RN) Pain Scale: 2 (02/23/2016 01:37:Jenny Li RN) Pain Scale: 2 (02/23/2016 01:21:Jenny Li RN) Pain Scale: 2 (02/23/2016 01:09:Jenny Li RN) Pain Scale: 0 (02/23/2016 00:54:Jenny Li RN) Pain Scale: 0 (02/23/2016 00:36:Jenny Li RN) Pain Scale: 0 (02/23/2016 00:06:Jenny Li RN) Pain Scale: 2 (02/22/2016 20:11:Jenny Li RN) Pain Scale: 0 (02/22/2016 19:30:Jenny Li RN) Pain Scale: 0 (02/22/2016 16:25:Kari Wright RN) Pain Presence: Intermittent (02/23/2016 02:18:Jenny Li RN) Pain Presence: Intermittent (02/23/2016 01:51:Jenny Li RN) Pain Presence: Intermittent (02/23/2016 01:37:Jenny Li RN) Pain Presence: Constant (02/23/2016 01:21:Jenny Li RN) Pain Presence: Constant (02/23/2016 01:09:Jenny Li RN) Pain Presence: None/Denies (02/23/2016 00:54:Jenny Li RN) Pain Presence: None/Denies (02/23/2016 00:36:eJnny Li RN) Pain Presence: None/Denies (02/23/2016 00:06:Jenny Li RN) Pain Presence: Intermittent (02/22/2016 20:11:Jenny Li RN) Pain Presence: None/Denies (02/22/2016 19:30:Jenny Li RN) Pain Presence: None/Denies (02/22/2016 16:25:Kari Wright RN) Pain Type: Cramping (02/23/2016 02:18:Jenny Li RN) Pain Type: Cramping (02/23/2016 01:51:Jenny Li RN) Pain Type: Cramping (02/23/2016 01:37:Jenny Li RN) Pain Type: Ache (02/23/2016 01:21:Jenny Li RN) Pain Type: Ache (02/23/2016 01:09:Jenny Li RN) Pain Type: N/A (02/23/2016 00:54:Jenny Li RN) Pain Type: N/A (02/23/2016 00:36:Jenny Li RN) Pain Type: N/A (02/23/2016 00:06:Jenny Li RN) Pain Type: Contraction (02/22/2016 20:11:Jenny Li RN) Pain Type: N/A (02/22/2016 19:30:Jenny Li RN) Pain Type: N/A (02/22/2016 16:25:Kari Wright RN) Pain Location: Abdomen (02/23/2016 02:18:Jenny Li RN) Pain Location: Abdomen (02/23/2016 01:51:Jenny Li RN) Pain Location: Abdomen (02/23/2016 01:37:Jenny Li RN) Pain Location: Perineum (02/23/2016 01:21:Jenny Li RN) Pain Location: Perineum (02/23/2016 01:09:Jenny Li RN) Pain Location: Abdomen (02/22/2016 20:11:Jenny Li RN) Pain Goal: 2 (02/23/2016 02:18:Jenny Li RN) Pain Goal: 2 (02/23/2016 01:51:Jenny Li RN) Pain Goal: 2 (02/23/2016 01:37:Jenny Li RN) Pain Goal: 2 (02/23/2016 01:21:Rucsandra Jen, RN) Pain Goal: 2 (02/23/2016 01:09:Jenny Li, RN) Pain Goal: 2 (02/22/2016 20:11:Rucsandra Jen, RN) Frequency (min): 1.5-2 (02/22/2016 23:45:Rucsandra Jen, RN) Frequency (min): 1.5-2 (02/22/2016 23:30:Rucsandra Jen, RN) Frequency (min): 2-3 (02/22/2016 23:15:Rucsandra Jen, RN) Frequency (min): 2-3 (02/22/2016 23:00:Rucsandra Jen, RN) Frequency (min): 2-5 (02/22/2016 22:45:Rucsandra Jen, RN) Frequency (min): 1.5-4 (02/22/2016 22:30:Rucsandra Jen, RN) Frequency (min): 1-4 (02/22/2016 22:15:Rucsandra Jen, RN) Frequency (min): 2-4 (02/22/2016 22:00:Rucsandra Jen, RN) Frequency (min): 2-3 (02/22/2016 21:45:Rucsandra Jen, RN) Frequency (min): 1.5-3 (02/22/2016 21:30:Rucsandra Jen, RN) Frequency (min): 1.5-3 (02/22/2016 21:15:Rucsandra Jen, RN) Frequency (min): 2-3 (02/22/2016 21:00:Rucsandra Jen, RN) Frequency (min): 1.5-5.5 (02/22/2016 20:45:Rucsandra Jen, RN) Frequency (min): 2-6 (02/22/2016 20:30:Rucsandra Jen, RN) Frequency (min): 5-6 (02/22/2016 20:15:Rucsandra Jen, RN) Frequency (min): 2-7 (02/22/2016 20:00:Jenny Li, RN) Frequency (min): x2 (02/22/2016 19:45:Jenny Li, RN) Frequency (min): x2 (02/22/2016 19:30:Jenny Li, RN) Frequency (min): irregular (02/22/2016 19:15:Kari Wright RN) Frequency (min): 8-10 (02/22/2016 18:45:Kari Wright RN) Frequency (min): x1 (02/22/2016 18:15:Kari Wright RN) Frequency (min): irregular (02/22/2016 17:45:Kari Wright RN) Frequency (min): x3 (02/22/2016 17:15:Kari Wright RN) Frequency (min): irritability (02/22/2016 16:45:Kari Wright RN) Duration (sec): 40-60 (02/22/2016 23:45:Jenny Li, RN) Duration (sec): 50-80 (02/22/2016 23:30:[place] Li, RN) Duration (sec): 50-70 (02/22/2016 23:15:[place] Li, RN) Duration (sec): 50-80 (02/22/2016 23:00:Rucsandra Li, RN) Duration (sec): 60-100 (02/22/2016 22:45:Rucsandra Li, RN) Duration (sec): 40-80 (02/22/2016 22:30:Rucsandra Jen, RN) Duration (sec): 50-60 (02/22/2016 22:15:Rucsandra Jen, RN) Duration (sec): 40-80 (02/22/2016 22:00:Rucsandra Jen, RN) Duration (sec): 60-90 (02/22/2016 21:45:Rucsandra Jen, RN) Duration (sec): 40-60 (02/22/2016 21:30:Rucsandra Jen, RN) Duration (sec): 60-80 (02/22/2016 21:15:Rucsandra Jen, RN) Duration (sec): 50-70 (02/22/2016 21:00:Jenny Li RN) Duration (sec): 40-60 (02/22/2016 20:45:Jenny Li RN) Duration (sec): 40-70 (02/22/2016 20:30:Jenny Li RN) Duration (sec): 40-60 (02/22/2016 20:15:Jenny Li RN) Duration (sec): 50-120 (02/22/2016 20:00:Jenny Li RN) Duration (sec): 50-70 (02/22/2016 19:45:Jenny Li RN) Duration (sec): 70-110 (02/22/2016 19:30:Jenny Li RN) Duration (sec): 60-80 (02/22/2016 19:15:Kari Wright RN) Duration (sec): 60-80 (02/22/2016 18:45:Kari Wright RN) Duration (sec): 100 (02/22/2016 18:15:Kari Wright RN) Duration (sec): 30-60 (02/22/2016 17:45:Kari Wright RN) Duration (sec): 60-100 (02/22/2016 17:15:Kari Wright RN) Quality: Moderate to Strong (02/22/2016 23:45:Jenny Li RN) Quality: Moderate to Strong (02/22/2016 23:30:Jenny Li RN) Quality: Moderate to Strong (02/22/2016 23:15:Jenny Li RN) Quality: Moderate to Strong (02/22/2016 23:00:Jenny Li RN) Quality: Mild/Moderate (02/22/2016 22:45:Jenny Li RN) Quality: Mild/Moderate (02/22/2016 22:30:Jenny Li RN) Quality: Mild/Moderate (02/22/2016 22:15:Jenny Li RN) Quality: Mild/Moderate (02/22/2016 22:00:Jenny Li RN) Quality: Mild/Moderate (02/22/2016 21:45:Jenny Li RN) Quality: Mild/Moderate (02/22/2016 21:30:Jenny Li RN) Quality: Mild/Moderate (02/22/2016 21:15:Jenny Li RN) Quality: Mild/Moderate (02/22/2016 21:00:Jenny Li RN) Quality: Mild/Moderate (02/22/2016 20:45:Jenny Li RN) Quality: Mild/Moderate (02/22/2016 20:30:Jenny Li RN) Quality: Mild/Moderate (02/22/2016 20:15:Jenny Li RN) Quality: Mild/Moderate (02/22/2016 20:00:Jenny Li RN) Quality: Mild (02/22/2016 19:30:Jenny Li RN) Quality: Mild (02/22/2016 19:15:Kari Wright RN) Quality: Mild (02/22/2016 18:45:Kari Wright RN) Quality: Mild (02/22/2016 18:15:Kari Wright RN) Quality: Mild (02/22/2016 17:45:Kari Wright RN) Quality: Mild (02/22/2016 17:15:Kari Wright RN) Resting Tone [place]: Relaxed (02/22/2016 23:45:Jenny Li RN) Resting Tone [place]: Relaxed (02/22/2016 23:30:Jenny Li RN) Resting Tone [place]: Relaxed (02/22/2016 23:15:Jenny Li RN) Resting Tone [place]: Relaxed (02/22/2016 23:00:Jenny Li RN) Resting Tone [place]: Relaxed (02/22/2016 22:45:Jenny Li RN) Resting Tone [place]: Relaxed (02/22/2016 22:30:Jenny Li RN) Resting Tone [place]: Relaxed (02/22/2016 22:15:Jenny Li RN) Resting Tone [place]: Relaxed (02/22/2016 22:00:Jenny Li RN) Resting Tone [place]: Relaxed (02/22/2016 21:45:Jenny Li RN) Resting Tone [place]: Relaxed (02/22/2016 21:30:Jenny Li RN) Resting Tone [place]: Relaxed (02/22/2016 21:15:Jenny Li RN) Resting Tone [place]: Relaxed (02/22/2016 21:00:Jenny Li RN) Resting Tone [place]: Relaxed (02/22/2016 20:45:Jenny Li RN) Resting Tone [place]: Relaxed (02/22/2016 20:30:Jenny Li RN) Resting Tone [place]: Relaxed (02/22/2016 20:15:Jenny iL RN) Resting Tone [place]: Relaxed (02/22/2016 20:00:Jenny Li RN) Resting Tone [place]: Relaxed (02/22/2016 19:45:Jenny Li RN) Resting Tone [place]: Relaxed (02/22/2016 19:30:Jenny Li RN) Resting Tone [place]: Relaxed (02/22/2016 19:15:Kari Wright RN) Resting Tone [place]: Relaxed (02/22/2016 18:45:Kari Wright RN) Resting Tone [place]: Relaxed (02/22/2016 18:15:Kari Wright RN) Resting Tone [place]: Relaxed (02/22/2016 17:45:Kari Wright RN) Resting Tone [place]: Relaxed (02/22/2016 17:15:Kari Wright RN) Resting Tone [place]: Relaxed (02/22/2016 16:45:Kari Wright RN) Contraction Comments: irritability noted between ctx. (02/22/2016 20:00:Jenny Li RN) Dilatation (cm): 10.0 (02/22/2016 23:30:Jenny Li RN) Dilatation (cm): 7.0 (02/22/2016 22:59:Jenny Li RN) Dilatation (cm): 3.0 (02/22/2016 21:46:Jenny Li RN) Dilatation (cm): 3.0 (02/22/2016 17:29:Kari Wright RN) Effacement (%): 100 (02/22/2016 23:30:Jenny Li RN) Effacement (%): 80 (02/22/2016 22:59:Jenny Li RN) Effacement (%): 50 (02/22/2016 21:46:Jenny Li RN) Effacement (%): 50 (02/22/2016 17:29:Kari Wright RN) Station: 0 (02/22/2016 23:30:Jenny Li RN) Station: -1 (02/22/2016 22:59:Jenny Li RN) Station: -2 (02/22/2016 21:46:Jenny Li RN) Station: -2 (02/22/2016 17:29:Kari Wright RN) Membranes Status: Ruptured (02/22/2016 21:46:Jenny Li RN) ROM Method: Artificial (02/22/2016 21:46:Jenny Li RN) Amniotic Fluid Color: Clear (02/22/2016 21:46:Jenny Li RN) Amniotic Fluid Amount: Moderate (02/22/2016 21:46:Jenny Li RN) Level of Consciousness: Fully Conscious (02/22/2016 19:30:Jenny Li RN) Level of Consciousness: Fully Conscious (02/22/2016 16:25:Kari Wright RN) DTR's/Clonus: DTRs 2+; No Clonus (02/22/2016 19:30:Jenny Li RN) DTR's/Clonus: DTRs 2+; No Clonus (02/22/2016 16:25:Kari Wright RN) Headache: Denies (02/22/2016 19:30:Jenny Li RN) Headache: Generalized (02/22/2016 16:25:Kari Wright RN) Dizziness: No (02/22/2016 19:30:Jenny Li RN) Dizziness: Yes (02/22/2016 16:25:Kari Wright RN) Blurred Vision: No (02/22/2016 19:30:Jenny Li RN) Blurred Vision: No (02/22/2016 16:25:Kari Wright RN) Extremity Numbness/Tingling : None (02/22/2016 19:30:Jenny Li RN) Extremity Numbness/Tingling : Right Arm; Right Leg (02/22/2016 16:25:Kari Wright RN) Extremity Movement: Full Range of Motion (02/22/2016 19:30:Jenny Li RN) Extremity Movement: Full Range of Motion (02/22/2016 16:25:Kari Wright RN) Heart Rhythm: Regular (02/22/2016 19:30:Jenny Li RN) Nailbeds: [place] (02/22/2016 19:30:Jenny Li RN) Nailbeds: [place] (02/22/2016 16:25:Kari Wright RN) Capillary Refill: Less than 3 Seconds (02/22/2016 19:30:Jenny Li RN) Capillary Refill: Less than 3 Seconds (02/22/2016 16:25:Kari Wright RN) Lower Extremities Edema: None (02/22/2016 19:30:Jenny Li RN) Lower Extremities Edema Degree: None (02/22/2016 19:30:Jenny Li RN) Upper Extremities Edema: None (02/22/2016 19:30:Jenny Li RN) Upper Extremities Edema Degree: None (02/22/2016 19:30:Jenny Li RN) Facial Edema: None (02/22/2016 19:30:Jenny Li RN) Facial Edema: None (02/22/2016 16:25:Kari Wright RN) DVT Risk Age: Age less than 41 years (02/22/2016 19:30:Jenny Li RN) DVT Risk Age: Age less than 41 years (02/22/2016 16:25:Kari Wright RN) DVT Risk BMI: BMI<31 (02/22/2016 19:30:Jenny Li RN) DVT Risk BMI: BMI<31 (02/22/2016 16:25:Kari Wright RN) DVT Risk Surgery: None Applicable (02/22/2016 19:30:Jenny Li RN) DVT Risk Surgery: None Applicable (02/22/2016 16:25:Kari Wright RN) DVT Risk Other: Women Only- or (<1 month) (02/22/2016 19:30:Jenny Li RN) DVT Risk Other: Women Only- or (<1 month) (02/22/2016 16:25:Kari Wright RN) DVT Risk Total: 1 (02/22/2016 19:30:QS system process) DVT Risk Total: 1 (02/22/2016 16:25:QS system process) DVT Risk Text: Low Risk (<10%) No specific measures, early ambulation (02/22/2016 19:30:QS system process) DVT Risk Text: Low Risk (<10%) No specific measures, early ambulation (02/22/2016 16:25:QS system process) Respiratory Effort: Unlabored; Regular Rhythm; Equal Expansion (02/22/2016 19:30:Jenny Li RN) Respiratory Effort: Unlabored; Regular Rhythm; Equal Expansion (02/22/2016 16:25:Kari Wright RN) Breath Sounds, Left: Clear and Equal (02/22/2016 19:30:Jenny Li RN) Breath Sounds, Left: Clear and Equal (02/22/2016 16:25:Kari Wright RN) Breath Sounds, Right: Clear and Equal (02/22/2016 19:30:Jenny Li RN) Breath Sounds, Right: Clear and Equal (02/22/2016 16:25:Kari Wright RN) Cough Productivity: None (02/22/2016 19:30:Jenny Li RN) Cough Productivity: None (02/22/2016 16:25:Kari Wright RN) Nausea/Vomiting: Present (02/22/2016 19:30:Jenny Li RN) Nausea/Vomiting: Denies (02/22/2016 16:25:Kari Wright RN) Bowel Sounds: Normoactive (02/22/2016 19:30:Jenny Li RN) Bowel Sounds: Normoactive; All Quadrants (02/22/2016 16:25:Kari Wright RN) RUQ Epigastric Pain: Denies (02/22/2016 19:30:Jenny Li RN) RUQ Epigastric Pain: Denies (02/22/2016 16:25:Kari Wright RN) Bowel Patterns: Soft, Formed Stool (02/22/2016 19:30:Jenny Li RN) Hemorrhoids: Present (02/22/2016 19:30:Jenny Li RN) Diet Type: Regular diet (02/22/2016 19:30:Jenny Li RN) Bladder: Nondistended (Annotations: voiding) (02/22/2016 19:30:Jenny Li RN) Bladder: Nondistended (02/22/2016 16:25:Kari Wright RN) Frequency of Urination: No (02/22/2016 19:30:Jenny Li RN) Frequency of Urination: No (02/22/2016 16:25:Kari Wright RN) Urination Burning: No (02/22/2016 19:30:Jenny Li RN) Urination Burning: No (02/22/2016 16:25:Kari Wright RN) CVA Tenderness: No (02/22/2016 19:30:Jenny Li RN) CVA Tenderness: No (02/22/2016 16:25:Kari Wright RN) Vaginal Bleeding: None (02/22/2016 16:25:Kari Wright RN) Vaginal Discharge Amount: None (02/22/2016 19:30:Jenny Li RN) Vaginal Discharge Color: N/A (02/22/2016 19:30:Jenny Li RN) Vaginal Discharge Color: N/A (02/22/2016 16:25:Kari Wright RN) Skin Color: Normal for Race (02/22/2016 19:30:Jenny Li RN) Skin Color: Normal for Race (02/22/2016 16:25:Kari Wright RN) Skin Temperature: Warm (02/22/2016 19:30:Jenny Li RN) Skin Temperature: Warm (02/22/2016 16:25:Kari Wright RN) Skin Moisture: Dry (02/22/2016 19:30:Jenny Li RN) Skin Moisture: Dry (02/22/2016 16:25:Kari Wright RN) Surgical Scars: inside of left leg, on hip and head from cyst removal. (02/22/2016 19:30:Jenny Li RN) Body Piercings/Tattoos: ears pierced, 5 tattoos. (02/22/2016 19:30:Jenny Li RN) Michael Scale Sensory Perception: No Impairment- Responds to verbal commands. Has no sensory deficit which would limit ability to feel or voice pain or discomfort (02/22/2016 19:30:Jenny Li RN) Michael Scale Sensory Perception: No Impairment- Responds to verbal commands. Has no sensory deficit which would limit ability to feel or voice pain or discomfort (02/22/2016 16:25:Kari Wright RN) Michael Scale Moisture: Rarely Moist- Skin is usually dry. Linen only requires changing at routine intervals (02/22/2016 19:30:Jenny Li RN) Michael Scale Moisture: Rarely Moist- Skin is usually dry. Linen only requires changing at routine intervals (02/22/2016 16:25:Kari Wright RN) Michael Scale Activity: Walks Frequently- Walks outside the room at least twice a day and inside room at least every 2 hours during the day. (02/22/2016 19:30:Jenny Li RN) Michael Scale Activity: Walks Frequently- Walks outside the room at least twice a day and inside room at least every 2 hours during the day. (02/22/2016 16:25:Kari Wright RN) Michael Scale Mobility: No Limitations- Makes major and frequent changes in position without assistance (02/22/2016 19:30:Jenny Li RN) Michael Scale Mobility: No Limitations- Makes major and frequent changes in position without assistance (02/22/2016 16:25:Kari Wright RN) Michael Scale Nutrition: Excellent- Eats most of every meal. Never refuses a meal. Usually eats a total of 4 or more servings of meat and dairy products. Occasionally eats between meals. Does not require supplementation (02/22/2016 19:30:Jenny Li RN) Michael Scale Nutrition: Excellent- Eats most of every meal. Never refuses a meal. Usually eats a total of 4 or more servings of meat and dairy products. Occasionally eats between meals. Does not require supplementation (02/22/2016 16:25:Kari Wright RN) Michael Scale Friction and Shear: No Apparent Problem- Moves in bed and in chair independently and has sufficient muscle strength to lift up completely during move. Maintains good position in bed or chair at all times (02/22/2016 19:30:Jenny Li RN) Michael Scale Friction and Shear: No Apparent Problem- Moves in bed and in chair independently and has sufficient muscle strength to lift up completely during move. Maintains good position in bed or chair at all times (02/22/2016 16:25:Kari Wright RN) Michael Scale Total: 23 (02/22/2016 19:30:QS system process) Michael Scale Total: 23 (02/22/2016 16:25:QS system process) Michael Scale Risk: No Risk of Pressure Ulcer Noted at this Time (02/22/2016 19:30:QS system process) Michael Scale Risk: No Risk of Pressure Ulcer Noted at this Time (02/22/2016 16:25:QS system process) Family Support: Significant Other supportive, at bedside frequently (02/22/2016 19:30:Jenny Li RN) Family Support: Significant Other supportive, at bedside frequently (02/22/2016 16:25:Kari Wright RN) Emotional State: Calm/Relaxed (02/22/2016 19:30:Jenny Li RN) Emotional State: Calm/Relaxed (02/22/2016 16:25:Kari Wright RN) Call [place] Within Reach: Yes (02/22/2016 19:30:Jenny Li RN) Call [place] Within Reach: Yes (02/22/2016 16:25:Kari Wright RN) Side Rails Up: Yes (02/22/2016 19:30:Jenny Li RN) Side Rails Up: Yes (02/22/2016 16:25:Kari Wright RN) Bed Wheels Locked: Yes (02/22/2016 19:30:Jenny Li RN) Bed Wheels Locked: Yes (02/22/2016 16:25:Kari Wright RN) Arm Bands Present: Yes (02/22/2016 19:30:Jenny Li RN) Arm Bands Present: Yes (02/22/2016 16:25:Kari Wright RN) Isolation: [place] (02/22/2016 19:30:Jenny Li RN) Fall Risk History of Falling: (0) No (02/22/2016 16:25:Kari Wright RN) Fall Risk Secondary Diagnosis: (0) No (02/22/2016 16:25:Kari Wright RN) Fall Risk Ambulatory Aid: (0) None/Bedrest/Wheelchair/Nurse Assist (02/22/2016 16:25:Kari Wright RN) Fall Risk IV Therapy: (0) No (02/22/2016 16:25:Kari Wright RN) Fall Risk Gait: (0) Normal/Bedrest/Immobile (02/22/2016 16:25:Kari Wright RN) Fall Risk Mental Status: (0) Oriented to Own Ability (02/22/2016 16:25:Kari Wright RN) Fall Risk Score: 0 (02/22/2016 16:25:QS system process) Fall Risk Score Definition: No Risk: No action required (02/22/2016 16:25:QS system process) FHR Baseline Rate (bpm) Baby A: 125 (02/22/2016 23:55:Jenny Li RN) FHR Baseline Rate (bpm) Baby A: 130 (02/22/2016 23:50:Jenny Li RN) FHR Baseline Rate (bpm) Baby A: 130 (02/22/2016 23:45:Jenny Li RN) FHR Baseline Rate (bpm) Baby A: 125 (02/22/2016 23:40:Jenny Li RN) FHR Baseline Rate (bpm) Baby A: 130 (02/22/2016 23:30:Jenny Li RN) FHR Baseline Rate (bpm) Baby A: 130 (02/22/2016 23:15:Jenny Li RN) FHR Baseline Rate (bpm) Baby A: 130 (02/22/2016 23:00:Jenny Li RN) FHR Baseline Rate (bpm) Baby A: 130 (02/22/2016 22:45:Jenny Li RN) FHR Baseline Rate (bpm) Baby A: 130 (02/22/2016 22:30:Jenny Li RN) FHR Baseline Rate (bpm) Baby A: 130 (02/22/2016 22:15:Jenny Li RN) FHR Baseline Rate (bpm) Baby A: 125 (02/22/2016 22:00:Jenny Li RN) FHR Baseline Rate (bpm) Baby A: 125 (02/22/2016 21:45:Jenny Li RN) FHR Baseline Rate (bpm) Baby A: 125 (02/22/2016 21:30:Jenny Li RN) FHR Baseline Rate (bpm) Baby A: 130 (02/22/2016 21:15:Jenny Li RN) FHR Baseline Rate (bpm) Baby A: 135 (02/22/2016 21:00:Jenny Li RN) FHR Baseline Rate (bpm) Baby A: 130 (02/22/2016 20:45:Jenny Li RN) FHR Baseline Rate (bpm) Baby A: 135 (02/22/2016 20:30:Jenny Li RN) FHR Baseline Rate (bpm) Baby A: 140 (02/22/2016 20:15:Jenny Li RN) FHR Baseline Rate (bpm) Baby A: 140 (02/22/2016 20:00:Jenny Li RN) FHR Baseline Rate (bpm) Baby A: 135 (02/22/2016 19:45:Jenny Li RN) FHR Baseline Rate (bpm) Baby A: 130 (02/22/2016 19:30:Jenny Li RN) FHR Baseline Rate (bpm) Baby A: 135 (02/22/2016 19:15:Kari Wright RN) FHR Baseline Rate (bpm) Baby A: 135 (02/22/2016 18:45:Kari Wright RN) FHR Baseline Rate (bpm) Baby A: 135 (02/22/2016 18:15:Kari Wright RN) FHR Baseline Rate (bpm) Baby A: 135 (02/22/2016 17:45:Kari Wright RN) FHR Baseline Rate (bpm) Baby A: 145 (02/22/2016 17:15:Kari Wright RN) FHR Baseline Rate (bpm) Baby A: 140 (02/22/2016 16:45:Kari Wright RN) Variability Baby A: Moderate 6-25 bpm (02/22/2016 23:45:Jenny Li RN) Variability Baby A: Moderate 6-25 bpm (02/22/2016 23:30:Jenny Li RN) Variability Baby A: Moderate 6-25 bpm (02/22/2016 23:15:Jenny Li RN) Variability Baby A: Moderate 6-25 bpm (02/22/2016 23:00:Jenny Li RN) Variability Baby A: Moderate 6-25 bpm (02/22/2016 22:45:Jenny Li RN) Variability Baby A: Moderate 6-25 bpm (02/22/2016 22:30:Jenny Li RN) Variability Baby A: Moderate 6-25 bpm (02/22/2016 22:15:Jenny Li RN) Variability Baby A: Moderate 6-25 bpm (02/22/2016 22:00:Jenny Li RN) Variability Baby A: Moderate 6-25 bpm (02/22/2016 21:45:Jenny Li RN) Variability Baby A: Moderate 6-25 bpm (02/22/2016 21:30:Jenny Li RN) Variability Baby A: Moderate 6-25 bpm (02/22/2016 21:15:Jenny Li RN) Variability Baby A: Moderate 6-25 bpm (02/22/2016 21:00:Jenny Li RN) Variability Baby A: Moderate 6-25 bpm (02/22/2016 20:45:Jenny Li RN) Variability Baby A: Moderate 6-25 bpm (02/22/2016 20:30:Jenny Li RN) Variability Baby A: Moderate 6-25 bpm (02/22/2016 20:15:Jenny Li RN) Variability Baby A: Moderate 6-25 bpm (02/22/2016 20:00:Jenny Li RN) Variability Baby A: Moderate 6-25 bpm (02/22/2016 19:45:Jenny Li RN) Variability Baby A: Moderate 6-25 bpm (02/22/2016 19:30:Jenny Li RN) Variability Baby A: Moderate 6-25 bpm (02/22/2016 19:15:Kari Wright RN) Variability Baby A: Moderate 6-25 bpm (02/22/2016 18:45:Kari Wright RN) Variability Baby A: Moderate 6-25 bpm (02/22/2016 18:15:Kari Wright RN) Variability Baby A: Moderate 6-25 bpm (02/22/2016 17:45:Kari Wright RN) Variability Baby A: Moderate 6-25 bpm (02/22/2016 17:15:Kari Wright RN) Variability Baby A: Moderate 6-25 bpm (02/22/2016 16:45:Kari Wright RN) Accelerations Baby A: 10X10 (02/22/2016 23:45:Jenny Li RN) Accelerations Baby A: 10X10 (02/22/2016 23:30:Jenny Li RN) Accelerations Baby A: None (02/22/2016 23:15:Jenny Li RN) Accelerations Baby A: None (02/22/2016 23:00:Jenny Li RN) Accelerations Baby A: None (02/22/2016 22:45:Jenny Li RN) Accelerations Baby A: None (02/22/2016 22:30:Jenny Li RN) Accelerations Baby A: 15X15 (02/22/2016 22:15:Jenny Li RN) Accelerations Baby A: 15X15 (02/22/2016 22:00:Jenny Li RN) Accelerations Baby A: 15X15 (02/22/2016 21:45:Jenny Li RN) Accelerations Baby A: 15X15 (02/22/2016 21:30:Jenny Li RN) Accelerations Baby A: 15X15 (02/22/2016 21:15:Jenny Li RN) Accelerations Baby A: 15X15 (02/22/2016 21:00:Jenny Li RN) Accelerations Baby A: 15X15 (02/22/2016 20:45:Jenny Li RN) Accelerations Baby A: 15X15 (02/22/2016 20:30:Jenny Li RN) Accelerations Baby A: 15X15 (02/22/2016 20:15:Jenny Li RN) Accelerations Baby A: None (02/22/2016 20:00:Jenny Li RN) Accelerations Baby A: 15X15 (02/22/2016 19:45:Jenny Li RN) Accelerations Baby A: 15X15 (02/22/2016 19:30:Jenny Li RN) Accelerations Baby A: 15X15 (02/22/2016 19:15:Kair Wright RN) Accelerations Baby A: 15X15 (02/22/2016 18:45:Kari Wright RN) Accelerations Baby A: 15X15 (02/22/2016 18:15:Kari Wrihgt RN) Accelerations Baby A: 10X10 (02/22/2016 17:45:Kari Wright RN) Accelerations Baby A: 15X15 (02/22/2016 17:15:Kari Wright RN) Accelerations Baby A: 10X10 (02/22/2016 16:45:Kari Wright RN) Decelerations Baby A: Variable (02/22/2016 23:45:Jenny Li RN) Decelerations Baby A: None (02/22/2016 23:30:Jenny Li RN) Decelerations Baby A: None (02/22/2016 23:15:Jenny Li RN) Decelerations Baby A: Early (02/22/2016 23:00:Jenny Li RN) Decelerations Baby A: Variable (02/22/2016 22:45:Jenny Li RN) Decelerations Baby A: None (02/22/2016 22:30:Jenny Li RN) Decelerations Baby A: Variable (02/22/2016 22:15:Jenny Li RN) Decelerations Baby A: Variable (02/22/2016 22:00:Jenny Li RN) Decelerations Baby A: None (02/22/2016 21:45:Jenny Li RN) Decelerations Baby A: None (02/22/2016 21:30:Jenny Li RN) Decelerations Baby A: None (02/22/2016 21:15:Jenny Li RN) Decelerations Baby A: None (02/22/2016 21:00:Jenny Li RN) Decelerations Baby A: None (02/22/2016 20:45:Jenny Li RN) Decelerations Baby A: None (02/22/2016 20:30:Jenny Li RN) Decelerations Baby A: None (02/22/2016 20:15:Jenny Li RN) Decelerations Baby A: None (02/22/2016 20:00:Jenny Li RN) Decelerations Baby A: None (02/22/2016 19:45:Jenny Li RN) Decelerations Baby A: None (02/22/2016 19:30:Jenny Li RN) Decelerations Baby A: None (02/22/2016 19:15:Kari Wright RN) Decelerations Baby A: None (02/22/2016 18:45:Kari Wright RN) Decelerations Baby A: None (02/22/2016 18:15:Kari Wright RN) Decelerations Baby A: None (02/22/2016 17:45:Kari Wright RN) Decelerations Baby A: None (02/22/2016 17:15:Kari Wright RN) Decelerations Baby A: None (02/22/2016 16:45:Kari Wright RN) Assessment Flag: Admission Assessment (02/22/2016 16:25:QS system process)
--- NOTE | 2016-02-23 04:47 | L&D Flow Sheet ---
LD Flowsheet Datetime Report Generated by CPN: 02/23/2016 04:45 Datetime: 02/23/2016 02:20 Stage of : Recovery (Jenny Li, RN) Datetime: 02/23/2016 02:18 Stage of : Recovery (Rucsedra Jen, RN) NBP Sys/Sharyn/Mean (mmHg): 137 (QS system process) : 71 (QS system process) : 96 (QS system process) Pulse: 118 (QS system process) Respirations: 18 (Rucsandra Jen, RN) Pain Scale: 2 (Jenny Li, RN) Pain Presence: Intermittent (Jenny Li RN) Pain Type: Cramping (Jenny Li RN) Pain Location: Abdomen (Jenny Li RN) Pain Goal: 2 (Inderjit Jen, RN) Datetime: 02/23/2016 02:06 NBP Sys/Sharyn/Mean (mmHg): 140 (QS system process) : 65 (QS system process) : 94 (QS system process) Pulse: 144 (QS system process) Datetime: 02/23/2016 02:04 Stage of : Recovery (Jenny Li RN) NBP Sys/Sharyn/Mean (mmHg): 146 (QS system process) : 69 (QS system process) : 99 (QS system process) Pulse: 146 (QS system process) Datetime: 02/23/2016 02:00 Stage of : Recovery (Jenny Li RN) Datetime: 02/23/2016 01:51 Stage of : Recovery (Jenny Li RN) NBP Sys/Sharyn/Mean (mmHg): 127 (QS system process) : 83 (QS system process) : 98 (QS system process) Pulse: 106 (QS system process) Pain Scale: 2 (Jenny Li RN) Pain Presence: Intermittent (Jenny Li RN) Pain Type: Cramping (Jenny Li RN) Pain Location: Abdomen (Jenny Li RN) Pain Goal: 2 (Jenny Li RN) Pain Relief Measures: Pain Medication Given (Annotations: Motrin 800mg PO, intended effects and possible side effects explained to pt. Pt agrees and V/U. ) (Jenny Li RN) Datetime: 02/23/2016 01:37 Stage of : Recovery (Jenny Li RN) NBP Sys/Sharyn/Mean (mmHg): 122 (QS system process) : 81 (QS system process) : 97 (QS system process) Pulse: 108 (QS system process) Pain Scale: 2 (Jenny Li RN) Pain Presence: Intermittent (Jenny Li RN) Pain Type: Cramping (Jenny Li RN) Pain Location: Abdomen (Jenny Li RN) Pain Goal: 2 (Jenny Li RN) Pain Relief Measures: Comfort Measures (Annotations: hot packs provided. ) (Jenny Li RN) Datetime: 02/23/2016 01:21 Stage of : Recovery (Jenny Li RN) NBP Sys/Sharyn/Mean (mmHg): 137 (QS system process) : 80 (QS system process) : 101 (QS system process) Pulse: 115 (QS system process) Respirations: 16 (Jenny Li RN) Pain Scale: 2 (Jenny Li RN) Pain Presence: Constant (Jenny Li RN) Pain Type: Ache (Jenny Li RN) Pain Location: Perineum (Jenny Li RN) Pain Goal: 2 (Jenny Li RN) Pain Relief Measures: pt denies need for intervention (Jenny Li RN) Datetime: 02/23/2016 01:09 Stage of : Recovery (Jenny Li RN) NBP Sys/Sharyn/Mean (mmHg): 123 (QS system process) : 85 (QS system process) : 100 (QS system process) Pulse: 115 (QS system process) Respirations: 16 (eJnny Li RN) Pain Scale: 2 (Jenny Li RN) Pain Presence: Constant (Jenny Li RN) Pain Type: Ache (Jenny Li RN) Pain Location: Perineum (Jenny Li RN) Pain Goal: 2 (Jenny Li RN) Pain Relief Measures: pt denies any need for pain intervention. (Jenny Li RN) Datetime: 02/23/2016 01:05 Stage of : Recovery (Jenny Li, SANNA) Datetime: 02/23/2016 00:56 Stage of : Recovery (Inderjitra Li, RN) Datetime: 02/23/2016 00:54 Stage of : Recovery (Jenny Li RN) NBP Sys/Sharyn/Mean (mmHg): 130 (QS system process) : 60 (QS system process) : 86 (QS system process) Pulse: 116 (QS system process) Pain Scale: 0 (Jenny Li RN) Pain Presence: None/Denies (Jenny Li RN) Pain Type: N/A (Jenny Li RN) Datetime: 02/23/2016 00:36 Stage of : Recovery (Rubarringtonandra Li, RN) NBP Sys/Sharyn/Mean (mmHg): 131 (QS system process) : 58 (QS system process) : 84 (QS system process) Pulse: 110 (QS system process) Respirations: 16 ([place] Li, RN) Pain Scale: 0 (Rubarringtonandra Li, RN) Pain Presence: None/Denies (Rubarringtonandra Li, RN) Pain Type: N/A (Rucsandra Jen, RN) Datetime: 02/23/2016 00:34 NBP Sys/Sharyn/Mean (mmHg): 171 (QS system process) : 60 (QS system process) : 87 (QS system process) Pulse: 115 (QS system process) Datetime: 02/23/2016 00:10 Stage of : Recovery (Jenny Li, RN) Datetime: 02/23/2016 00:06 Stage of : Recovery (Jenny Li RN) NBP Sys/Sharyn/Mean (mmHg): 115 (QS system process) : 54 (QS system process) : 78 (QS system process) Pulse: 129 (QS system process) Respirations: 18 (Jenny Li RN) Temperature (F): 98.2 (Jenny Li RN) Temperature (C): 36.8 (QS system process) Pain Scale: 0 (Jenny Li RN) Pain Presence: None/Denies (Jenny Li RN) Pain Type: N/A (Jenny Li RN) Datetime: 02/23/2016 00:02 Stage of : Recovery (Jenny Li RN) Datetime: 02/23/2016 00:01 NBP Sys/Sharyn/Mean (mmHg): 165 (QS system process) : 67 (QS system process) : 96 (QS system process) Pulse: 127 (QS system process) LaborFlag: Antepartum (QS system process) Datetime: 02/22/2016 23:57 Stage 2 Comments: of viable baby girl, see delivery summary (Rucsandra Jen, RN) Datetime: 02/22/2016 23:56 Pushing Progress: with Pushing (Rucsandra Jen, RN) Datetime: 02/22/2016 23:55 Monitor Mode: External US (Rucsandra Jen, RN) FHR Baseline Rate : 125 (Rucsandra Jen, RN) Datetime: 02/22/2016 23:50 Monitor Mode: External US (Rucsandra Jen, RN) FHR Baseline Rate : 130 (Rucsandra Jen, RN) Datetime: 02/22/2016 23:48 NBP Sys/Sharyn/Mean (mmHg): 167 (QS system process) : 88 (QS system process) : 115 (QS system process) Pulse: 137 (QS system process) Maternal Comments: pt pushing with CTX, will continue to monitor BPs (Rucsandra Jen, RN) LaborFlag: Antepartum (QS system process) Datetime: 02/22/2016 23:45 Monitor Mode: External; Palpation (Rucsandra Jen, RN) Frequency (min): 1.5-2 (Rucsandra Jen, RN) Quality: Moderate to Strong (Rucsandra Jen, RN) Duration (sec): 40-60 (Rucsandra Jen, RN) Resting Tone (Palpate): Relaxed (Rucsandra Jen, RN) Monitor Mode: External US (Rucsandra Jen, RN) FHR Baseline Rate : 130 (Rucsandra Jen, RN) Variability: Moderate 6-25 bpm (Rucsandra Jen, RN) Accelerations: 10X10 (Rucsandra Jen, RN) Decelerations: Variable (Rucsandra Jen, RN) Datetime: 02/22/2016 23:40 FHR Baseline Rate : 125 (Rucsandra Jen, RN) Stage 2 Comments: pt pushing with ctx, RN remains at bedside continuously monitoring FHTs (Rucsandra Jen, RN) Datetime: 02/22/2016 23:38 Pushing: Coached on Pushing; Urge to Push (Rucsandra Jen, RN) Datetime: 02/22/2016 23:35 Communication Comments: DR Villarreal at bedside for delivery, strip reviewed. (Rucsandra Jen, RN) Datetime: 02/22/2016 23:30 Monitor Mode: External; Palpation (Jenny Li, RN) Frequency (min): 1.5-2 (Jenny Li, RN) Quality: Moderate to Strong (Rucsbuck Li, RN) Duration (sec): 50-80 (Jenny Li RN) Resting Tone (Palpate): Relaxed (Jenny Li RN) Monitor Mode: External US (Jenny Li RN) FHR Baseline Rate : 130 (Jenny Li RN) Variability: Moderate 6-25 bpm (Jenny Li, RN) Accelerations: 10X10 (Jenny Li RN) Decelerations: None (Jenny Li RN) Dilatation (cm): 10.0 (Jenny Li RN) Effacement (%): 100 (Jenny Li RN) Station: 0 (Jenny Li RN) Exam by: Alex Li RN (Jenny Li RN) Vaginal Bleeding: Normal Show (Jenny Li RN) Datetime: 02/22/2016 23:17 Communication Comments: Called Dr Villarreal, advised of SVE. States she is on her way to unit. (Jenny Li, SANNA) Datetime: 02/22/2016 23:16 NBP Sys/Sharyn/Mean (mmHg): 130 (QS system process) : 91 (QS system process) : 102 (QS system process) Pulse: 110 (QS system process) LaborFlag: Antepartum (QS system process) Datetime: 02/22/2016 23:15 Monitor Mode: External; Palpation (Rucsandra Jen, RN) Frequency (min): 2-3 (Rucsandra Jen, RN) Quality: Moderate to Strong (Rucsandra Jen, RN) Duration (sec): 50-70 (Rucsandra Jen, RN) Resting Tone (Palpate): Relaxed (Rucsandra Jen, RN) Monitor Mode: External US (Rucsandra Jen, RN) FHR Baseline Rate : 130 (Rucsandra Jen, RN) Variability: Moderate 6-25 bpm (Rucsandra Jen, RN) Accelerations: None (Rucsandra Jen, RN) Decelerations: None (Rucsandra Jen, RN) Datetime: 02/22/2016 23:13 Maternal Comments: pt reports feeling increased pressure. (Rucsandra Jen, RN) Datetime: 02/22/2016 23:11 Monitor Interventions for UA: [place] Adjusted (Rucsandra Jen, RN) Datetime: 02/22/2016 23:08 Maternal Comments: terry emptied 500ml of clear yellow urine. (Rucsandra Jen, RN) Datetime: 02/22/2016 23:07 Patient Position/Activity: Peanut Ball (Rucsandra Jen, RN) Datetime: 02/22/2016 23:06 Monitor Interventions for UA: [place] Adjusted (Rucsandra Jen, RN) Datetime: 02/22/2016 23:04 Patient Position/Activity: Left Lateral (Rucsandra Jen, RN) Datetime: 02/22/2016 23:00 Monitor Mode: External; Palpation (Rucsandra Jen, RN) Frequency (min): 2-3 (Rucsandra Jen, RN) Quality: Moderate to Strong (Jenny Li RN) Duration (sec): 50-80 (Jenny Li RN) Resting Tone (Palpate): Relaxed (Jenny Li RN) Monitor Mode: External US (Jenny Li RN) FHR Baseline Rate : 130 (Jenny Li, RN) Variability: Moderate 6-25 bpm (Jenny Li, RN) Accelerations: None (Jenny Li RN) Decelerations: Early (Jenny Li RN) IV/Blood Work: New IV Bag Hung (Jenny Li, RN) Datetime: 02/22/2016 22:59 Dilatation (cm): 7.0 (Jenny Li RN) Effacement (%): 80 (Jenny Li RN) Station: -1 (Jenny Li, RN) Exam by: Alex Li RN (Jenny Li, SANNA) Vaginal Bleeding: Normal Show (Jenny Li, RN) Datetime: 02/22/2016 22:47 NBP Sys/Sharyn/Mean (mmHg): 106 (QS system process) : 64 (QS system process) : 80 (QS system process) Pulse: 98 (QS system process) Maternal Comments: pt reports increased pressure. (Rucsandra Li, RN) LaborFlag: Antepartum (QS system process) Datetime: 02/22/2016 22:45 Monitor Mode: External; Palpation (Rucsandra Jen, RN) Frequency (min): 2-5 (Rucsandra Jen, RN) Quality: Mild/Moderate (Rucsandra Jen, RN) Duration (sec): 60-100 (Rucsandra Jen, RN) Resting Tone (Palpate): Relaxed (Rucsandra Jen, RN) Monitor Mode: External US (Rucsandra Jen, RN) FHR Baseline Rate : 130 (Rucsandra Jen, RN) Variability: Moderate 6-25 bpm (Rucsandra Jen, RN) Accelerations: None (Rucsandra Jen, RN) Decelerations: Variable (Rucsandra Jen, RN) Datetime: 02/22/2016 22:31 NBP Sys/Sharyn/Mean (mmHg): 101 (QS system process) : 67 (QS system process) : 79 (QS system process) Pulse: 118 (QS system process) LaborFlag: Antepartum (QS system process) Datetime: 02/22/2016 22:30 Monitor Mode: External; Palpation (Rucsandra Jen, RN) Frequency (min): 1.5-4 (Rucsandra Jen, RN) Quality: Mild/Moderate (Rucsandra Jen, RN) Duration (sec): 40-80 (Rucsandra Jen, RN) Resting Tone (Palpate): Relaxed (Rucsandra Jen, RN) Monitor Mode: External US (Rucsandra Jen, RN) FHR Baseline Rate : 130 (Rucsandra Jen, RN) Variability: Moderate 6-25 bpm (Rucsandra Jen, RN) Accelerations: None (Rucsandra Jen, RN) Decelerations: None (Rucsandra Jen, RN) Datetime: 02/22/2016 22:17 NBP Sys/Sharyn/Mean (mmHg): 108 (QS system process) : 68 (QS system process) : 81 (QS system process) Pulse: 112 (QS system process) LaborFlag: Antepartum (QS system process) Datetime: 02/22/2016 22:16 Temperature (F): 97.7 (Jenny Li RN) Temperature (C): 36.5 (QS system process) LaborFlag: Antepartum (QS system process) Datetime: 02/22/2016 22:15 Monitor Mode: External; Palpation (Jenny Li RN) Frequency (min): 1-4 (Jenny Li RN) Quality: Mild/Moderate (Jenny Li RN) Duration (sec): 50-60 (Jenny Li RN) Resting Tone (Palpate): Relaxed (Jenny Li RN) Monitor Mode: External US (Jenny Li RN) FHR Baseline Rate : 130 (Jenny Li, RN) Variability: Moderate 6-25 bpm (Rumarian Li, RN) Accelerations: 15X15 (Rumarian Li, RN) Decelerations: Variable (Jenny Li, RN) Patient Position/Activity: Right Lateral (Rumarian Li, RN) Datetime: 02/22/2016 22:01 NBP Sys/Sharyn/Mean (mmHg): 123 (QS system process) : 72 (QS system process) : 92 (QS system process) Pulse: 106 (QS system process) LaborFlag: Antepartum (QS system process) Datetime: 02/22/2016 22:00 Monitor Mode: External; Palpation (Jenny Li RN) Frequency (min): 2-4 (Jenny Li RN) Quality: Mild/Moderate (Jenny Li RN) Duration (sec): 40-80 (Jenny Li RN) Resting Tone (Palpate): Relaxed (Jenny Li RN) Monitor Mode: External US (Rucsandra Jen, RN) FHR Baseline Rate : 125 (Rucsandra Jen, RN) Variability: Moderate 6-25 bpm (Rucsandra Jen, RN) Accelerations: 15X15 (Rucsandra Jen, RN) Decelerations: Variable (Rucsandra Jen, RN) Datetime: 02/22/2016 21:57 NBP Sys/Sharyn/Mean (mmHg): 122 (QS system process) : 71 (QS system process) : 91 (QS system process) Pulse: 126 (QS system process) LaborFlag: Antepartum (QS system process) Datetime: 02/22/2016 21:53 Patient Position/Activity: Right Tilt (Rucsandra Jen, RN) Datetime: 02/22/2016 21:51 NBP Sys/Sharyn/Mean (mmHg): 134 (QS system process) : 69 (QS system process) : 94 (QS system process) Pulse: 127 (QS system process) Hygiene: Underpad Changed (Jenny Li RN) LaborFlag: Antepartum (QS system process) Datetime: 02/22/2016 21:49 NBP Sys/Sharyn/Mean (mmHg): 130 (QS system process) : 79 (QS system process) : 100 (QS system process) Pulse: 101 (QS system process) LaborFlag: Antepartum (QS system process) Datetime: 02/22/2016 21:48 NBP Sys/Sharyn/Mean (mmHg): 133 (QS system process) : 75 (QS system process) : 93 (QS system process) Pulse: 121 (QS system process) LaborFlag: Antepartum (QS system process) Datetime: 02/22/2016 21:46 Dilatation (cm): 3.0 (Jenny Li RN) Effacement (%): 50 (Jenny Li RN) Station: -2 (Jenny Li RN) Exam by: Dr. Villarreal (Jenny Li RN) Membrane Status: Ruptured (Jenny Li RN) Membranes Rupture Method: Artificial (Jenny Li RN) Amniotic Fluid Color: Clear (Jenny Li RN) Amniotic Fluid Amount: Moderate (Jenny Li RN) Vaginal Bleeding: None (Jenny Li RN) Cervix, Consistency: Firm (Jenny Li RN) Datetime: 02/22/2016 21:45 NBP Sys/Sharyn/Mean (mmHg): 122 (QS system process) : 65 (QS system process) : 90 (QS system process) Pulse: 106 (QS system process) Monitor Mode: External; Palpation (Jenny Li RN) Frequency (min): 2-3 (Jenny Li RN) Quality: Mild/Moderate (Jenny Li RN) Duration (sec): 60-90 (Jenny Li RN) Resting Tone (Palpate): Relaxed (Jenny Li RN) Monitor Mode: External US (Jenny Li RN) FHR Baseline Rate : 125 (Jenny Li RN) Variability: Moderate 6-25 bpm (Jenny Li RN) Accelerations: 15X15 (Jenny Li RN) Decelerations: None (Jenny Li RN) Provider Reviewed Strip: Yes (Jenny Li RN) Strip Reviewed by: Dr Villarreal (Jenny Li RN) Communication: Provider at Bedside (Jenny Li RN) Communication Comments: Dr Villarreal at bedside, POC discussed with pt, pt agrees and V/U. Strip reviewed. (Jenny Li RN) LaborFlag: Antepartum (QS system process) Datetime: 02/22/2016 21:44 NBP Sys/Sharyn/Mean (mmHg): 119 (QS system process) : 68 (QS system process) : 89 (QS system process) Pulse: 126 (QS system process) LaborFlag: Antepartum (QS system process) Datetime: 02/22/2016 21:41 NBP Sys/Sharyn/Mean (mmHg): 122 (QS system process) : 63 (QS system process) : 87 (QS system process) Pulse: 103 (QS system process) Pulse: 99 (QS system process) SpO2 (%): 100 (QS system process) LaborFlag: Antepartum (QS system process) Datetime: 02/22/2016 21:40 Maternal Comments: Terry Catheter inserted per aseptic technique. Terry draining approximately 250ml of clear yellow urine and secured with stat lock. (Jenny Li RN) Datetime: 02/22/2016 21:39 NBP Sys/Sharyn/Mean (mmHg): 116 (QS system process) : 58 (QS system process) : 84 (QS system process) Pulse: 99 (QS system process) LaborFlag: Antepartum (QS system process) Datetime: 02/22/2016 21:37 NBP Sys/Sharyn/Mean (mmHg): 122 (QS system process) : 58 (QS system process) : 83 (QS system process) Pulse: 110 (QS system process) Teaching Comments: Pt instructed on need for terry catheter and securing with stat lock. (Jneny Li RN) LaborFlag: Antepartum (QS system process) Datetime: 02/22/2016 21:36 Pulse: 113 (QS system process) SpO2 (%): 100 (QS system process) LaborFlag: Antepartum (QS system process) Datetime: 02/22/2016 21:34 NBP Sys/Sharyn/Mean (mmHg): 127 (QS system process) NBP Sys/Sharyn/Mean (mmHg): 125 (QS system process) : 79 (QS system process) : 78 (QS system process) : 98 (QS system process) : 96 (QS system process) Pulse: 117 (QS system process) Pulse: 111 (QS system process) LaborFlag: Antepartum (QS system process) Datetime: 02/22/2016 21:33 Patient Position/Activity: Left Tilt (Jenny Li RN) Datetime: 02/22/2016 21:32 NBP Sys/Sharyn/Mean (mmHg): 128 (QS system process) : 82 (QS system process) : 75 (QS system process) : 101 (QS system process) : 97 (QS system process) Pulse: 113 (QS system process) Pulse: 121 (QS system process) Epidural Procedure: Loading Dose (Jenny Li RN) LaborFlag: Antepartum (QS system process) Datetime: 02/22/2016 21:31 NBP Sys/Sharyn/Mean (mmHg): 140 (QS system process) : 81 (QS system process) : 103 (QS system process) Pulse: 118 (QS system process) Pulse: 116 (QS system process) SpO2 (%): 100 (QS system process) Epidural Procedure: Test Dose (Jenny Li RN) LaborFlag: Antepartum (QS system process) Datetime: 02/22/2016 21:30 Monitor Mode: External; Palpation (Jenny Li RN) Frequency (min): 1.5-3 (Jenny Li RN) Quality: Mild/Moderate (Jenny Li RN) Duration (sec): 40-60 (Jenny Li RN) Resting Tone (Palpate): Relaxed (Jenny Li RN) Monitor Mode: External US (Jenny Li RN) FHR Baseline Rate : 125 (Jenny Li RN) Variability: Moderate 6-25 bpm (Jenny Li, RN) Accelerations: 15X15 (Jenny Li, RN) Decelerations: None (Jenny Li, RN) Epidural Procedure: Cath Placed (Jenny Li, RN) Datetime: 02/22/2016 21:27 Maternal Comments: maternal heart rate tracing and palpated, pt remains sitting for epidural. (Jenny Li, RN) Datetime: 02/22/2016 21:26 Pulse: 124 (QS system process) SpO2 (%): 100 (QS system process) LaborFlag: Antepartum (QS system process) Datetime: 02/22/2016 21:25 Pulse: 111 (QS system process) SpO2 (%): 90 (QS system process) LaborFlag: Antepartum (QS system process) Datetime: 02/22/2016 21:24 Maternal Comments: maternal heart rate tracing and palpated. (Jenny Li RN) Maternal Comments: Pt sitting up on side of the bed for epidural placement. (Jenny Li RN) Datetime: 02/22/2016 21:21 Pulse: 110 (QS system process) SpO2 (%): 100 (QS system process) LaborFlag: Antepartum (QS system process) Datetime: 02/22/2016 21:20 Procedure Type: epidural (Jenny Li RN) Procedure Verify: Correct Patient Identity; Correct Side and Site are Marked; Accurate Procedure Consent Form; Agreement on Procedure to be Done; Correct Patient Position (Jenny Li RN) Anesthesia Plans: Epidural (Jenny Li RN) Epidural Positioning: Sitting (Jenny Li RN) Anesthesia Comments: Anesthesia consent forms signs following explaination of risks and benefits and explaination of procedure. (Jenny Li RN) Datetime: 02/22/2016 21:19 NBP Sys/Sharyn/Mean (mmHg): 141 (QS system process) : 85 (QS system process) : 106 (QS system process) Pulse: 107 (QS system process) Anesthesia Comments: Dr. Yates at bedside for epidural placement. (Jenny Li RN) LaborFlag: Antepartum (QS system process) Datetime: 02/22/2016 21:15 Monitor Mode: External; Palpation (Jenny Li RN) Frequency (min): 1.5-3 (Jenny Li RN) Quality: Mild/Moderate (Jenny Li, RN) Duration (sec): 60-80 (Jenny Li RN) Resting Tone (Palpate): Relaxed (Jenny Li RN) Monitor Mode: External US (Jenny Li, RN) FHR Baseline Rate : 130 (Eleuterioandra Li, RN) Variability: Moderate 6-25 bpm (Eleuterioandra Li, RN) Accelerations: 15X15 (Eleuterioandra Li, RN) Decelerations: None (Eleuterioandra Li, RN) Datetime: 02/22/2016 21:10 Procedure Type: epidural (Jenny Li RN) Procedure Verify: Correct Patient Identity; Accurate Procedure Consent Form; Agreement on Procedure to be Done (Jenny Li RN) Anesthesia Plans: Epidural (Jenny Li RN) Anesthesia Comments: Called Dr. Yates, advised of pt request for epidural. States he will be on unit in 10-15min. (Jenny Li RN) Datetime: 02/22/2016 21:04 NBP Sys/Sharyn/Mean (mmHg): 127 (QS system process) : 77 (QS system process) : 97 (QS system process) Pulse: 117 (QS system process) LaborFlag: Antepartum (QS system process) Datetime: 02/22/2016 21:03 Maternal Comments: Visitors at bedside. Pt denies needs. Breathing throught ctx occasionally. (Jenny Li RN) Datetime: 02/22/2016 21:00 Monitor Mode: External; Palpation (Jenny Li RN) Frequency (min): 2-3 (Jenny Li RN) Quality: Mild/Moderate (Jenny Li RN) Duration (sec): 50-70 (Jenny Li RN) Resting Tone (Palpate): Relaxed (Jenny Li RN) Monitor Mode: External US (Jenny Li RN) FHR Baseline Rate : 135 (Jenny Li RN) Variability: Moderate 6-25 bpm (Jenny Li RN) Accelerations: 15X15 (Jenny Li RN) Decelerations: None (Jenny Li RN) Datetime: 02/22/2016 20:50 IV/Blood Work: New IV Bag Hung (Jenny Li RN) Patient Care Comments: New IV bag hung, LR continuest to infuse at bolus rate for epidural placement. (Jenny Li RN) Datetime: 02/22/2016 20:49 NBP Sys/Sharyn/Mean (mmHg): 123 (QS system process) : 74 (QS system process) : 92 (QS system process) Pulse: 101 (QS system process) LaborFlag: Antepartum (QS system process) Datetime: 02/22/2016 20:46 Maternal Comments: pt back to bed without incident. (Rucsandra Jen, RN) Datetime: 02/22/2016 20:45 Monitor Mode: External; Palpation (Rucsandra Jen, RN) Frequency (min): 1.5-5.5 (Rucsandra Jen, RN) Quality: Mild/Moderate (Rucsandra Jen, RN) Duration (sec): 40-60 (Rucsandra Jen, RN) Resting Tone (Palpate): Relaxed (Rucsandra Jen, RN) Monitor Mode: External US (Rucsandra Jen, RN) FHR Baseline Rate : 130 (Rucsandra Jen, RN) Variability: Moderate 6-25 bpm (Rucsandra Jen, RN) Accelerations: 15X15 (Rucsandra Jen, RN) Decelerations: None (Rucsandra Jen, RN) Datetime: 02/22/2016 20:41 I/O Interventions: Up to BR (Jenny Li, RN) Datetime: 02/22/2016 20:34 NBP Sys/Sharyn/Mean (mmHg): 132 (QS system process) : 80 (QS system process) : 100 (QS system process) Pulse: 103 (QS system process) LaborFlag: Antepartum (QS system process) Datetime: 02/22/2016 20:30 Monitor Mode: External; Palpation (Jenny Li RN) Frequency (min): 2-6 (Jenny Li RN) Quality: Mild/Moderate (Jenny Li RN) Duration (sec): 40-70 (Jenny Contrerasahan, RN) Resting Tone (Palpate): Relaxed (Rucsandra Jen, RN) Monitor Mode: External US (Jenny Li, RN) FHR Baseline Rate : 135 (Rucsandra Jen, RN) Variability: Moderate 6-25 bpm (Rucsandra Jen, RN) Accelerations: 15X15 (Rucsandra Jen, RN) Decelerations: None (Rucsandra Li, RN) Pitocin (milliunit): Pitocin Increased to (milliunits) @ 6 (Rucsandra Jen, RN) Datetime: 02/22/2016 20:19 NBP Sys/Sharyn/Mean (mmHg): 123 (QS system process) : 74 (QS system process) : 93 (QS system process) Pulse: 93 (QS system process) LaborFlag: Antepartum (QS system process) Datetime: 02/22/2016 20:15 Monitor Mode: External; Palpation (Jenny Li, RN) Frequency (min): 5-6 (Rumarian Li RN) Quality: Mild/Moderate (Jenny Li RN) Duration (sec): 40-60 (Jenny Li RN) Resting Tone (Palpate): Relaxed (Jenny Li RN) Monitor Mode: External US (Jenny Li RN) FHR Baseline Rate : 140 (Jenny Li RN) Variability: Moderate 6-25 bpm (Jenny Li RN) Accelerations: 15X15 (Jenny Li RN) Decelerations: None (Jenny Li RN) IV/Blood Work: IV Bolus Started; New IV Bag Hung (Jenny Li RN) Patient Care Comments: LR infusing at bolus rate for epidural placement. (Jenny Li RN) Procedure Type: epidural (Jenny Li RN) Procedure Verify: Correct Patient Identity; Accurate Procedure Consent Form; Agreement on Procedure to be Done (Jenny Li RN) Anesthesia Plans: Epidural (Jenny Li RN) Datetime: 02/22/2016 20:11 Pain Scale: 2 (Jenny Li RN) Pain Presence: Intermittent (Jenny Li RN) Pain Type: Contraction (Jenny Li RN) Pain Location: Abdomen (Jenny Li RN) Pain Goal: 2 (Jenny Li RN) Pain Coping: Requesting Pain Medication or Epidural (Jenny Li RN) Maternal Comments: Pt requesting epidural. (Jenny Li RN) LaborFlag: Antepartum (QS system process) Datetime: 02/22/2016 20:08 Antiemetics/Antacids: Zofran IV (mg) @ 8mg IV (Jenny Li RN) Medication Comments: Intended effects and possible side effects explained to pt. Pt agrees and V/U. (Jenny Li, RN) Datetime: 02/22/2016 20:04 NBP Sys/Sharyn/Mean (mmHg): 131 (QS system process) : 87 (QS system process) : 104 (QS system process) Pulse: 103 (QS system process) LaborFlag: Antepartum (QS system process) Datetime: 02/22/2016 20:00 Monitor Mode: External; Palpation (Rucsandra Jen, RN) Frequency (min): 2-7 (Rucsandra Jen, RN) Quality: Mild/Moderate (Rucsandra Jen, RN) Duration (sec): 50-120 (Rucsandra Jen, RN) Resting Tone (Palpate): Relaxed (Rucsandra Jen, RN) Contraction Comments: irritability noted between ctx. (Rucsandra Jen, RN) Monitor Mode: External US (Rucsandra Jen, RN) FHR Baseline Rate : 140 (Rucsandra Jen, RN) Variability: Moderate 6-25 bpm (Rucsandra Jen, RN) Accelerations: None (Rucsandra Jen, RN) Decelerations: None (Rucsandra Jen, RN) Datetime: 02/22/2016 19:51 Maternal Comments: pt reports feeling nauseated, requesting antiemetic. (Rucsandra Jen, RN) Datetime: 02/22/2016 19:49 NBP Sys/Sharyn/Mean (mmHg): 125 (QS system process) : 82 (QS system process) : 96 (QS system process) Pulse: 102 (QS system process) LaborFlag: Antepartum (QS system process) Datetime: 02/22/2016 19:48 Communication Comments: Dr Villarreal on unit, strip reviewed. (Jenny Li RN) Datetime: 02/22/2016 19:45 Monitor Mode: External; Palpation (Jenny Li RN) Frequency (min): x2 (Jenny Li RN) Duration (sec): 50-70 (Jenny Li RN) Resting Tone (Palpate): Relaxed (Jenny Li RN) Monitor Mode: External US (Jenny Li RN) FHR Baseline Rate : 135 (Jenny Li RN) Variability: Moderate 6-25 bpm (Jenyn Li RN) Accelerations: 15X15 (Jenny Li RN) Decelerations: None (Jenny Li RN) Pitocin (milliunit): Pitocin Increased to (milliunits) @ 4 (Jenny Li RN) Datetime: 02/22/2016 19:36 NBP Sys/Sharyn/Mean (mmHg): 130 (QS system process) : 69 (QS system process) : 92 (QS system process) Pulse: 107 (QS system process) LaborFlag: Antepartum (QS system process) Datetime: 02/22/2016 19:30 Monitor Mode: External; Palpation (Jenny Li RN) Frequency (min): x2 (Jenny Li RN) Quality: Mild (Jenny Li RN) Duration (sec): 70-110 (Jenny Li RN) Resting Tone (Palpate): Relaxed (Jenny Li RN) Monitor Mode: External US (Jenny Li RN) FHR Baseline Rate : 130 (Jenny Li RN) Variability: Moderate 6-25 bpm (Rucsandra Jen, RN) Accelerations: 15X15 (Jenny Li, RN) Decelerations: None (Jenny Li, RN) Pain Scale: 0 (Eleuterioandra Li, RN) Pain Presence: None/Denies (Eleuterioandra Li, RN) Pain Type: N/A (Jenny Li, RN) Level of Consciousness: Fully Conscious (Jenny Li, RN) DTR's/Clonus: DTRs 2+; No Clonus (Jenny Li, RN) Headache: Denies (Jenny Li, RN) Breath Sounds, Left: Clear and Equal (Eleuterioandra Li, RN) Breath Sounds, Right: Clear and Equal (Eleuterioandra Li, RN) Nausea/Vomiting: Present (Jenny Li, RN) RUQ Epigastric Pain: Denies (Jenny Li, RN) LaborFlag: Antepartum (QS system process) Datetime: 02/22/2016 19:28 Maternal Comments: pt back to bed without incident. (Jenny Li, RN) Datetime: 02/22/2016 19:22 I/O Interventions: Up to BR (Jenny Li, RN) Datetime: 02/22/2016 19:21 Pitocin (milliunit): Pitocin Remains (milliunits) @ 2 (Kari Wright RN) Communication Comments: Bedside shift report given to Alex Li RN. Care relinquished (Kari Wright RN) Datetime: 02/22/2016 19:19 Stage of : Antepartum (Jenny Li, RN) NBP Sys/Sharyn/Mean (mmHg): 129 (QS system process) : 86 (QS system process) : 102 (QS system process) Pulse: 106 (QS system process) LaborFlag: Antepartum (QS system process) Datetime: 02/22/2016 19:15 Monitor Mode: External (Karicornelius Wright, RN) Frequency (min): irregular (Karicornelius Wright, RN) Quality: Mild (Kari Kyle, RN) Duration (sec): 60-80 (Karicornelius Wright, RN) Resting Tone (Palpate): Relaxed (Karicornelius Wright, RN) Monitor Mode: External US (Kari Wright, RN) FHR Baseline Rate : 135 (Karicornelius Wright, RN) Variability: Moderate 6-25 bpm (Kari Wright, RN) Accelerations: 15X15 (Kari Kyle, RN) Decelerations: None (Kari Wright, RN) Datetime: 02/22/2016 19:06 NBP Sys/Sharyn/Mean (mmHg): 120 (QS system process) : 73 (QS system process) : 91 (QS system process) Pulse: 105 (QS system process) LaborFlag: OB Triage (QS system process) Datetime: 02/22/2016 19:00 Pitocin (milliunit): Pitocin Started (milliunits) @ 2; Pitocin 20 Units in 1000ml NS (Kari Wright RN) Datetime: 02/22/2016 18:51 NBP Sys/Sharyn/Mean (mmHg): 113 (QS system process) : 69 (QS system process) : 85 (QS system process) Pulse: 96 (QS system process) LaborFlag: OB Triage (QS system process) Datetime: 02/22/2016 18:45 Monitor Mode: External (Kari Wright RN) Frequency (min): 8-10 (Kari Wright RN) Quality: Mild (Kari Wright RN) Duration (sec): 60-80 (Kari Wright RN) Resting Tone (Palpate): Relaxed (Kari Wright RN) Monitor Mode: External US (Kari Wright RN) FHR Baseline Rate : 135 (Kari Wright, RN) Variability: Moderate 6-25 bpm (Kari Wright, RN) Accelerations: 15X15 (Kari Wright, RN) Decelerations: None (Kari Wright, RN) Datetime: 02/22/2016 18:35 Communication Comments: labs reviewed. GBS negative. GBS positive in previous 2013. Orders to start Pitocin and increase every 15 minute per protocol per H. Boris CNM (Kari Wright, RN) Datetime: 02/22/2016 18:34 NBP Sys/Sharyn/Mean (mmHg): 117 (QS system process) : 67 (QS system process) : 86 (QS system process) Pulse: 97 (QS system process) LaborFlag: OB Triage (QS system process) Datetime: 02/22/2016 18:22 Patient Care Comments: IV fluids decreased to 125ml/hr (Kari Wright, RN) Datetime: 02/22/2016 18:21 Monitor Interventions for FHR: Ultrasound Adjusted (Kari Wright, RN) Comments: Pt sitting straight up in bed, tracing maternal (Kari Wright, RN) Communication: RN at Bedside (Kari Kyle, RN) Datetime: 02/22/2016 18:19 NBP Sys/Sharyn/Mean (mmHg): 116 (QS system process) : 84 (QS system process) : 96 (QS system process) Pulse: 105 (QS system process) LaborFlag: OB Triage (QS system process) Datetime: 02/22/2016 18:15 Monitor Mode: External (Kari Wright, RN) Frequency (min): x1 (Kari Wright RN) Quality: Mild (Kari Wright, RN) Duration (sec): 100 (Kari Wright, RN) Resting Tone (Palpate): Relaxed (Kari Wright, RN) Monitor Mode: External US (Kari Wright, RN) FHR Baseline Rate : 135 (Kari Wright, RN) Variability: Moderate 6-25 bpm (Kari Wright, RN) Accelerations: 15X15 (Karicornelius Wright, RN) Decelerations: None (Kari Wright, RN) Procedures: Consents Signed (Kari Wright RN) Datetime: 02/22/2016 18:05 NBP Sys/Sharyn/Mean (mmHg): 118 (QS system process) : 89 (QS system process) : 101 (QS system process) Pulse: 130 (QS system process) LaborFlag: OB Triage (QS system process) Datetime: 02/22/2016 18:02 Antiemetics/Antacids: Bicitra 15 ml PO (Kari Wright RN) Patient Care Comments: IV started. IV bolus started (Kari Wright RN) Datetime: 02/22/2016 18:01 Communication Comments: Respiratory at bedside for EKG (Kari Wright RN) Datetime: 02/22/2016 17:45 Monitor Mode: External (Kari Wright RN) Frequency (min): irregular (Kari Wright RN) Quality: Mild (Kari Wright RN) Duration (sec): 30-60 (Kari Wright RN) Resting Tone (Palpate): Relaxed (Kari Wright RN) Monitor Mode: External US (Kari Wright RN) FHR Baseline Rate : 135 (Kari Wrihgt RN) Variability: Moderate 6-25 bpm (Kari Wright RN) Accelerations: 10X10 (Kari Wright RN) Decelerations: None (Kari Wright RN) Datetime: 02/22/2016 17:35 NBP Sys/Sharyn/Mean (mmHg): 131 (QS system process) : 74 (QS system process) : 97 (QS system process) Pulse: 110 (QS system process) LaborFlag: OB Triage (QS system process) Datetime: 02/22/2016 17:29 Dilatation (cm): 3.0 (Kari Wright RN) Effacement (%): 50 (Kari Wright RN) Station: -2 (Kari Wright RN) Exam by: Joie Escalante CNM (Kari Wright RN) Communication Comments: Joie Escalante CNM at bedside (Kari Wright RN) Datetime: 02/22/2016 17:28 Pulse: 100 (QS system process) SpO2 (%): 100 (QS system process) LaborFlag: OB Triage (QS system process) Datetime: 02/22/2016 17:23 Pulse: 102 (QS system process) SpO2 (%): 100 (QS system process) LaborFlag: OB Triage (QS system process) Datetime: 02/22/2016 17:19 NBP Sys/Sharyn/Mean (mmHg): 99 (QS system process) : 65 (QS system process) : 77 (QS system process) Pulse: 113 (QS system process) Communication Comments: Report given to Joie Escalante CNM. Orders for stat EKG (Kari Wright RN) LaborFlag: OB Triage (QS system process) Datetime: 02/22/2016 17:18 Pulse: 115 (QS system process) SpO2 (%): 100 (QS system process) LaborFlag: OB Triage (QS system process) Datetime: 02/22/2016 17:17 Communication Comments: Pt states she feels like an elephant is on her chest. Lungs sounds clear. Heart sounds regular. (Kari Wright RN) Datetime: 02/22/2016 17:15 Monitor Mode: External (Kari Wright RN) Frequency (min): x3 (Kari Wright RN) Quality: Mild (Kari Wright RN) Duration (sec): 60-100 (Kari Wright RN) Resting Tone (Palpate): Relaxed (Kari Wright RN) Monitor Mode: External US (Kari Wright RN) FHR Baseline Rate : 145 (Kari Wright RN) Variability: Moderate 6-25 bpm (Kari Wright RN) Accelerations: 15X15 (Kari Wright, RN) Decelerations: None (Kari Wright RN) Datetime: 02/22/2016 17:04 NBP Sys/Sharyn/Mean (mmHg): 98 (QS system process) : 62 (QS system process) : 76 (QS system process) Pulse: 102 (QS system process) LaborFlag: OB Triage (QS system process) Datetime: 02/22/2016 16:51 NBP Sys/Sharyn/Mean (mmHg): 95 (QS system process) : 63 (QS system process) : 72 (QS system process) Pulse: 107 (QS system process) LaborFlag: OB Triage (QS system process) Datetime: 02/22/2016 16:48 Patient Position/Activity: Right Lateral (Kari Wright RN) Datetime: 02/22/2016 16:45 Monitor Mode: External (Kari Wright RN) Frequency (min): irritability (Kari Wright RN) Resting Tone (Palpate): Relaxed (Kari Wright RN) Monitor Mode: External US (Kari Wright RN) FHR Baseline Rate : 140 (Kari Wright RN) Variability: Moderate 6-25 bpm (Kari Wright RN) Accelerations: 10X10 (Kari Wright RN) Decelerations: None (Kari Wright RN)
--- NOTE | 2016-02-23 04:47 | L&D General Admission ---
General Admit Datetime Report Generated by N: 02/23/2016 04:45 Height (in): 63 (02/23/2016 02:25:QS system process) Height (in): 63 (02/22/2016 16:23:QS system process) Height (in): 63 (02/22/2016 16:22:QS system process) Medication Allergies: morphine/SV/Anaphylaxis (02/22/2016); azithromycin/DC (02/22/2016); latex/DC (02/22/2016) (02/22/2016 16:18:QS system process) Hemoglobin: 9.9 L (02/22/2016 16:35:QS system process) Hematocrit: 29.7 L (02/22/2016 16:35:QS system process) MCV: 82 (02/22/2016 16:35:QS system process)
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
--- NOTE | 2016-02-23 07:01 | L&D Flow Sheet ---
LD Flowsheet Datetime Report Generated by CPN: 02/23/2016 07:00 Datetime: 02/23/2016 02:20 Stage of : Recovery (Jenny Li, RN) Datetime: 02/23/2016 02:18 Stage of : Recovery (Rucsedra Jen, RN) NBP Sys/Sharyn/Mean (mmHg): 137 (QS system process) : 71 (QS system process) : 96 (QS system process) Pulse: 118 (QS system process) Respirations: 18 (Rucsandra Jen, RN) Pain Scale: 2 (Jenny Li, RN) Pain Presence: Intermittent (Jenny Li RN) Pain Type: Cramping (Jenny Li RN) Pain Location: Abdomen (Jenny Li RN) Pain Goal: 2 (Inderjit Jen, RN) Datetime: 02/23/2016 02:06 NBP Sys/Sharyn/Mean (mmHg): 140 (QS system process) : 65 (QS system process) : 94 (QS system process) Pulse: 144 (QS system process) Datetime: 02/23/2016 02:04 Stage of : Recovery (Jenny Li RN) NBP Sys/Sharyn/Mean (mmHg): 146 (QS system process) : 69 (QS system process) : 99 (QS system process) Pulse: 146 (QS system process) Datetime: 02/23/2016 02:00 Stage of : Recovery (Jenny Li RN) Datetime: 02/23/2016 01:51 Stage of : Recovery (Jenny Li RN) NBP Sys/Sharyn/Mean (mmHg): 127 (QS system process) : 83 (QS system process) : 98 (QS system process) Pulse: 106 (QS system process) Pain Scale: 2 (Jenny Li RN) Pain Presence: Intermittent (Jenny Li RN) Pain Type: Cramping (Jenny Li RN) Pain Location: Abdomen (Jenny Li RN) Pain Goal: 2 (Jenny Li RN) Pain Relief Measures: Pain Medication Given (Annotations: Motrin 800mg PO, intended effects and possible side effects explained to pt. Pt agrees and V/U. ) (Jenny Li RN) Datetime: 02/23/2016 01:37 Stage of : Recovery (Jenny Li RN) NBP Sys/Sharyn/Mean (mmHg): 122 (QS system process) : 81 (QS system process) : 97 (QS system process) Pulse: 108 (QS system process) Pain Scale: 2 (Jenny Li RN) Pain Presence: Intermittent (Jenny Li RN) Pain Type: Cramping (Jenny Li RN) Pain Location: Abdomen (Jenny Li RN) Pain Goal: 2 (Jenny Li RN) Pain Relief Measures: Comfort Measures (Annotations: hot packs provided. ) (Jenny Li RN) Datetime: 02/23/2016 01:21 Stage of : Recovery (Jenny iL RN) NBP Sys/Sharyn/Mean (mmHg): 137 (QS system process) : 80 (QS system process) : 101 (QS system process) Pulse: 115 (QS system process) Respirations: 16 (Jenny Li RN) Pain Scale: 2 (Jenny Li RN) Pain Presence: Constant (Jenny Li RN) Pain Type: Ache (Jenny Li RN) Pain Location: Perineum (Jenny Li RN) Pain Goal: 2 (Jenny Li RN) Pain Relief Measures: pt denies need for intervention (Jenny Li RN) Datetime: 02/23/2016 01:09 Stage of : Recovery (Jenny Li RN) NBP Sys/Sharyn/Mean (mmHg): 123 (QS system process) : 85 (QS system process) : 100 (QS system process) Pulse: 115 (QS system process) Respirations: 16 (Jenny Li RN) Pain Scale: 2 (Jenny Li RN) Pain Presence: Constant (Jenny Li RN) Pain Type: Ache (Jenny Li RN) Pain Location: Perineum (Jenny Li RN) Pain Goal: 2 (Jenny Li RN) Pain Relief Measures: pt denies any need for pain intervention. (Jenny Li RN) Datetime: 02/23/2016 01:05 Stage of : Recovery (Jenny Li, SANNA) Datetime: 02/23/2016 00:56 Stage of : Recovery (Inderjitra Li, RN) Datetime: 02/23/2016 00:54 Stage of : Recovery (Jenny Li RN) NBP Sys/Sharyn/Mean (mmHg): 130 (QS system process) : 60 (QS system process) : 86 (QS system process) Pulse: 116 (QS system process) Pain Scale: 0 (Jenny Li RN) Pain Presence: None/Denies (Jenny Li RN) Pain Type: N/A (Jenny Li RN) Datetime: 02/23/2016 00:36 Stage of : Recovery (Rubarringtonandra Li, RN) NBP Sys/Sharyn/Mean (mmHg): 131 (QS system process) : 58 (QS system process) : 84 (QS system process) Pulse: 110 (QS system process) Respirations: 16 ([place] Li, RN) Pain Scale: 0 (Rubarringtonandra Li, RN) Pain Presence: None/Denies (Rubarringtonandra Li, RN) Pain Type: N/A (Rucsandra Jen, RN) Datetime: 02/23/2016 00:34 NBP Sys/Sharyn/Mean (mmHg): 171 (QS system process) : 60 (QS system process) : 87 (QS system process) Pulse: 115 (QS system process) Datetime: 02/23/2016 00:10 Stage of : Recovery (Jenny Li, RN) Datetime: 02/23/2016 00:06 Stage of : Recovery (Jenny Li RN) NBP Sys/Sharyn/Mean (mmHg): 115 (QS system process) : 54 (QS system process) : 78 (QS system process) Pulse: 129 (QS system process) Respirations: 18 (Jenny Li RN) Temperature (F): 98.2 (Jenny Li RN) Temperature (C): 36.8 (QS system process) Pain Scale: 0 (Jenny Li RN) Pain Presence: None/Denies (Jenny Li RN) Pain Type: N/A (Jenny Li RN) Datetime: 02/23/2016 00:02 Stage of : Recovery (Jenny Li RN) Datetime: 02/23/2016 00:01 NBP Sys/Sharyn/Mean (mmHg): 165 (QS system process) : 67 (QS system process) : 96 (QS system process) Pulse: 127 (QS system process) LaborFlag: Antepartum (QS system process) Datetime: 02/22/2016 23:57 Stage 2 Comments: of viable baby girl, see delivery summary (Rucsandra Jen, RN) Datetime: 02/22/2016 23:56 Pushing Progress: with Pushing (Rucsandra Jen, RN) Datetime: 02/22/2016 23:55 Monitor Mode: External US (Rucsandra Jen, RN) FHR Baseline Rate : 125 (Rucsandra Jen, RN) Datetime: 02/22/2016 23:50 Monitor Mode: External US (Rucsandra Jen, RN) FHR Baseline Rate : 130 (Rucsandra Jen, RN) Datetime: 02/22/2016 23:48 NBP Sys/Sharyn/Mean (mmHg): 167 (QS system process) : 88 (QS system process) : 115 (QS system process) Pulse: 137 (QS system process) Maternal Comments: pt pushing with CTX, will continue to monitor BPs (Rucsandra Jen, RN) LaborFlag: Antepartum (QS system process) Datetime: 02/22/2016 23:45 Monitor Mode: External; Palpation (Rucsandra Jen, RN) Frequency (min): 1.5-2 (Rucsandra Jen, RN) Quality: Moderate to Strong (Rucsandra Jen, RN) Duration (sec): 40-60 (Rucsandra Jen, RN) Resting Tone (Palpate): Relaxed (Rucsandra Jen, RN) Monitor Mode: External US (Rucsandra Jen, RN) FHR Baseline Rate : 130 (Rucsandra Jen, RN) Variability: Moderate 6-25 bpm (Rucsandra Jen, RN) Accelerations: 10X10 (Rucsandra Jen, RN) Decelerations: Variable (Rucsandra Jen, RN) Datetime: 02/22/2016 23:40 FHR Baseline Rate : 125 (Rucsandra Jen, RN) Stage 2 Comments: pt pushing with ctx, RN remains at bedside continuously monitoring FHTs (Rucsandra Jen, RN) Datetime: 02/22/2016 23:38 Pushing: Coached on Pushing; Urge to Push (Rucsandra Jen, RN) Datetime: 02/22/2016 23:35 Communication Comments: DR Villarreal at bedside for delivery, strip reviewed. (Rucsandra Jen, RN) Datetime: 02/22/2016 23:30 Monitor Mode: External; Palpation (Jenny Li, RN) Frequency (min): 1.5-2 (Jenny Li, RN) Quality: Moderate to Strong (Rucsbuck Li, RN) Duration (sec): 50-80 (Jenny Li RN) Resting Tone (Palpate): Relaxed (Jenny Li RN) Monitor Mode: External US (Jenny Li RN) FHR Baseline Rate : 130 (Jenny Li RN) Variability: Moderate 6-25 bpm (Jenny Li, RN) Accelerations: 10X10 (Jenny Li RN) Decelerations: None (Jenny Li RN) Dilatation (cm): 10.0 (Jenny Li RN) Effacement (%): 100 (Jenny Li RN) Station: 0 (Jenny Li RN) Exam by: Alex Li RN (Jenny Li RN) Vaginal Bleeding: Normal Show (Jenny Li RN) Datetime: 02/22/2016 23:17 Communication Comments: Called Dr Villarreal, advised of SVE. States she is on her way to unit. (Jenny Li, SANNA) Datetime: 02/22/2016 23:16 NBP Sys/Sharyn/Mean (mmHg): 130 (QS system process) : 91 (QS system process) : 102 (QS system process) Pulse: 110 (QS system process) LaborFlag: Antepartum (QS system process) Datetime: 02/22/2016 23:15 Monitor Mode: External; Palpation (Rucsandra Jen, RN) Frequency (min): 2-3 (Rucsandra Jen, RN) Quality: Moderate to Strong (Rucsandra Jen, RN) Duration (sec): 50-70 (Rucsandra Jen, RN) Resting Tone (Palpate): Relaxed (Rucsandra Jen, RN) Monitor Mode: External US (Rucsandra Jen, RN) FHR Baseline Rate : 130 (Rucsandra Jen, RN) Variability: Moderate 6-25 bpm (Rucsandra Jen, RN) Accelerations: None (Rucsandra Jen, RN) Decelerations: None (Rucsandra Jen, RN) Datetime: 02/22/2016 23:13 Maternal Comments: pt reports feeling increased pressure. (Rucsandra Jen, RN) Datetime: 02/22/2016 23:11 Monitor Interventions for UA: Energy Adjusted (Rucsandra Jen, RN) Datetime: 02/22/2016 23:08 Maternal Comments: terry emptied 500ml of clear yellow urine. (Rucsandra Jen, RN) Datetime: 02/22/2016 23:07 Patient Position/Activity: Peanut Ball (Rucsandra Jen, RN) Datetime: 02/22/2016 23:06 Monitor Interventions for UA: Energy Adjusted (Rucsandra Jen, RN) Datetime: 02/22/2016 23:04 Patient Position/Activity: Left Lateral (Rucsandra Jen, RN) Datetime: 02/22/2016 23:00 Monitor Mode: External; Palpation (Rucsandra Jen, RN) Frequency (min): 2-3 (Rucsandra Jen, RN) Quality: Moderate to Strong (Jenny Li RN) Duration (sec): 50-80 (Jenny Li RN) Resting Tone (Palpate): Relaxed (Jenny Li RN) Monitor Mode: External US (Jenny Li RN) FHR Baseline Rate : 130 (Jenny Li, RN) Variability: Moderate 6-25 bpm (Jenny Li, RN) Accelerations: None (Jenny Li RN) Decelerations: Early (Jenny Li RN) IV/Blood Work: New IV Bag Hung (Jenny Li, RN) Datetime: 02/22/2016 22:59 Dilatation (cm): 7.0 (Jenny Li RN) Effacement (%): 80 (Jenny Li RN) Station: -1 (Jenny Li, RN) Exam by: Alex Li RN (Jenny Li, SANNA) Vaginal Bleeding: Normal Show (Jenny Li, RN) Datetime: 02/22/2016 22:47 NBP Sys/Sharyn/Mean (mmHg): 106 (QS system process) : 64 (QS system process) : 80 (QS system process) Pulse: 98 (QS system process) Maternal Comments: pt reports increased pressure. (Rucsandra Li, RN) LaborFlag: Antepartum (QS system process) Datetime: 02/22/2016 22:45 Monitor Mode: External; Palpation (Rucsandra Jen, RN) Frequency (min): 2-5 (Rucsandra Jen, RN) Quality: Mild/Moderate (Rucsandra Jen, RN) Duration (sec): 60-100 (Rucsandra Jen, RN) Resting Tone (Palpate): Relaxed (Rucsandra Jen, RN) Monitor Mode: External US (Rucsandra Jen, RN) FHR Baseline Rate : 130 (Rucsandra Jen, RN) Variability: Moderate 6-25 bpm (Rucsandra Jen, RN) Accelerations: None (Rucsandra Jen, RN) Decelerations: Variable (Rucsandra Jen, RN) Datetime: 02/22/2016 22:31 NBP Sys/Sharyn/Mean (mmHg): 101 (QS system process) : 67 (QS system process) : 79 (QS system process) Pulse: 118 (QS system process) LaborFlag: Antepartum (QS system process) Datetime: 02/22/2016 22:30 Monitor Mode: External; Palpation (Rucsandra Jen, RN) Frequency (min): 1.5-4 (Rucsandra Ejn, RN) Quality: Mild/Moderate (Rucsandra Jen, RN) Duration (sec): 40-80 (Rucsandra Jen, RN) Resting Tone (Palpate): Relaxed (Rucsandra Jen, RN) Monitor Mode: External US (Rucsandra Jen, RN) FHR Baseline Rate : 130 (Rucsandra Jen, RN) Variability: Moderate 6-25 bpm (Rucsandra Jen, RN) Accelerations: None (Rucsandra Jen, RN) Decelerations: None (Rucsandra Jen, RN) Datetime: 02/22/2016 22:17 NBP Sys/Sharyn/Mean (mmHg): 108 (QS system process) : 68 (QS system process) : 81 (QS system process) Pulse: 112 (QS system process) LaborFlag: Antepartum (QS system process) Datetime: 02/22/2016 22:16 Temperature (F): 97.7 (Jenny Li RN) Temperature (C): 36.5 (QS system process) LaborFlag: Antepartum (QS system process) Datetime: 02/22/2016 22:15 Monitor Mode: External; Palpation (Jenny Li RN) Frequency (min): 1-4 (Jenny Li RN) Quality: Mild/Moderate (Jenny Li RN) Duration (sec): 50-60 (Jenny Li RN) Resting Tone (Palpate): Relaxed (Jenny Li RN) Monitor Mode: External US (Jenny Li RN) FHR Baseline Rate : 130 (Jenny Li, RN) Variability: Moderate 6-25 bpm (Rumarian Li, RN) Accelerations: 15X15 (Rumarian Li, RN) Decelerations: Variable (Jenny Li, RN) Patient Position/Activity: Right Lateral (Rumarian Li, RN) Datetime: 02/22/2016 22:01 NBP Sys/Sharyn/Mean (mmHg): 123 (QS system process) : 72 (QS system process) : 92 (QS system process) Pulse: 106 (QS system process) LaborFlag: Antepartum (QS system process) Datetime: 02/22/2016 22:00 Monitor Mode: External; Palpation (Jenny Li RN) Frequency (min): 2-4 (Jenny Li RN) Quality: Mild/Moderate (Jenny Li RN) Duration (sec): 40-80 (Jenny Li RN) Resting Tone (Palpate): Relaxed (Jenny Li RN) Monitor Mode: External US (Rucsandra Jen, RN) FHR Baseline Rate : 125 (Rucsandra Jen, RN) Variability: Moderate 6-25 bpm (Rucsandra Jen, RN) Accelerations: 15X15 (Rucsandra Jen, RN) Decelerations: Variable (Rucsandra Jen, RN) Datetime: 02/22/2016 21:57 NBP Sys/Sharyn/Mean (mmHg): 122 (QS system process) : 71 (QS system process) : 91 (QS system process) Pulse: 126 (QS system process) LaborFlag: Antepartum (QS system process) Datetime: 02/22/2016 21:53 Patient Position/Activity: Right Tilt (Rucsandra Jen, RN) Datetime: 02/22/2016 21:51 NBP Sys/Sharyn/Mean (mmHg): 134 (QS system process) : 69 (QS system process) : 94 (QS system process) Pulse: 127 (QS system process) Hygiene: Underpad Changed (Jenny Li RN) LaborFlag: Antepartum (QS system process) Datetime: 02/22/2016 21:49 NBP Sys/Sharyn/Mean (mmHg): 130 (QS system process) : 79 (QS system process) : 100 (QS system process) Pulse: 101 (QS system process) LaborFlag: Antepartum (QS system process) Datetime: 02/22/2016 21:48 NBP Sys/Sharyn/Mean (mmHg): 133 (QS system process) : 75 (QS system process) : 93 (QS system process) Pulse: 121 (QS system process) LaborFlag: Antepartum (QS system process) Datetime: 02/22/2016 21:46 Dilatation (cm): 3.0 (Jenny Li RN) Effacement (%): 50 (Jenny Li RN) Station: -2 (Jenny Li RN) Exam by: Dr. Villarreal (Jenny Li RN) Membrane Status: Ruptured (Jenny Li RN) Membranes Rupture Method: Artificial (Jenny Li RN) Amniotic Fluid Color: Clear (Jenny Li RN) Amniotic Fluid Amount: Moderate (Jenny Li RN) Vaginal Bleeding: None (Jenny Li RN) Cervix, Consistency: Firm (Jenny Li RN) Datetime: 02/22/2016 21:45 NBP Sys/Sharyn/Mean (mmHg): 122 (QS system process) : 65 (QS system process) : 90 (QS system process) Pulse: 106 (QS system process) Monitor Mode: External; Palpation (Jenny Li RN) Frequency (min): 2-3 (Jenny Li RN) Quality: Mild/Moderate (Jenny Li RN) Duration (sec): 60-90 (Jenny Li RN) Resting Tone (Palpate): Relaxed (Jenny Li RN) Monitor Mode: External US (Jenny Li RN) FHR Baseline Rate : 125 (Jenny Li RN) Variability: Moderate 6-25 bpm (Jenny Li RN) Accelerations: 15X15 (Jenny Li RN) Decelerations: None (Jenny Li RN) Provider Reviewed Strip: Yes (Jenny Li RN) Strip Reviewed by: Dr Villarreal (Jenny Li RN) Communication: Provider at Bedside (Jenny Li RN) Communication Comments: Dr Villarreal at bedside, POC discussed with pt, pt agrees and V/U. Strip reviewed. (Jenny Li RN) LaborFlag: Antepartum (QS system process) Datetime: 02/22/2016 21:44 NBP Sys/Sharyn/Mean (mmHg): 119 (QS system process) : 68 (QS system process) : 89 (QS system process) Pulse: 126 (QS system process) LaborFlag: Antepartum (QS system process) Datetime: 02/22/2016 21:41 NBP Sys/Sharyn/Mean (mmHg): 122 (QS system process) : 63 (QS system process) : 87 (QS system process) Pulse: 103 (QS system process) Pulse: 99 (QS system process) SpO2 (%): 100 (QS system process) LaborFlag: Antepartum (QS system process) Datetime: 02/22/2016 21:40 Maternal Comments: Terry Catheter inserted per aseptic technique. Terry draining approximately 250ml of clear yellow urine and secured with stat lock. (Jenny Li RN) Datetime: 02/22/2016 21:39 NBP Sys/Sharyn/Mean (mmHg): 116 (QS system process) : 58 (QS system process) : 84 (QS system process) Pulse: 99 (QS system process) LaborFlag: Antepartum (QS system process) Datetime: 02/22/2016 21:37 NBP Sys/Sharyn/Mean (mmHg): 122 (QS system process) : 58 (QS system process) : 83 (QS system process) Pulse: 110 (QS system process) Teaching Comments: Pt instructed on need for terry catheter and securing with stat lock. (Jenny Li RN) LaborFlag: Antepartum (QS system process) Datetime: 02/22/2016 21:36 Pulse: 113 (QS system process) SpO2 (%): 100 (QS system process) LaborFlag: Antepartum (QS system process) Datetime: 02/22/2016 21:34 NBP Sys/Sharyn/Mean (mmHg): 127 (QS system process) NBP Sys/Sharyn/Mean (mmHg): 125 (QS system process) : 79 (QS system process) : 78 (QS system process) : 98 (QS system process) : 96 (QS system process) Pulse: 117 (QS system process) Pulse: 111 (QS system process) LaborFlag: Antepartum (QS system process) Datetime: 02/22/2016 21:33 Patient Position/Activity: Left Tilt (Jenny Li RN) Datetime: 02/22/2016 21:32 NBP Sys/Sharyn/Mean (mmHg): 128 (QS system process) : 82 (QS system process) : 75 (QS system process) : 101 (QS system process) : 97 (QS system process) Pulse: 113 (QS system process) Pulse: 121 (QS system process) Epidural Procedure: Loading Dose (Jenny Li RN) LaborFlag: Antepartum (QS system process) Datetime: 02/22/2016 21:31 NBP Sys/Sharyn/Mean (mmHg): 140 (QS system process) : 81 (QS system process) : 103 (QS system process) Pulse: 118 (QS system process) Pulse: 116 (QS system process) SpO2 (%): 100 (QS system process) Epidural Procedure: Test Dose (Jenny Li RN) LaborFlag: Antepartum (QS system process) Datetime: 02/22/2016 21:30 Monitor Mode: External; Palpation (Jenny Li RN) Frequency (min): 1.5-3 (Jenny Li RN) Quality: Mild/Moderate (Jenny Li RN) Duration (sec): 40-60 (Jenny Li RN) Resting Tone (Palpate): Relaxed (Jenny Li RN) Monitor Mode: External US (Jenny Li RN) FHR Baseline Rate : 125 (Jenny Li RN) Variability: Moderate 6-25 bpm (Jenny Li, RN) Accelerations: 15X15 (Jenny Li, RN) Decelerations: None (Jenny Li, RN) Epidural Procedure: Cath Placed (Jenny Li, RN) Datetime: 02/22/2016 21:27 Maternal Comments: maternal heart rate tracing and palpated, pt remains sitting for epidural. (Jenny Li, RN) Datetime: 02/22/2016 21:26 Pulse: 124 (QS system process) SpO2 (%): 100 (QS system process) LaborFlag: Antepartum (QS system process) Datetime: 02/22/2016 21:25 Pulse: 111 (QS system process) SpO2 (%): 90 (QS system process) LaborFlag: Antepartum (QS system process) Datetime: 02/22/2016 21:24 Maternal Comments: maternal heart rate tracing and palpated. (Jenny Li RN) Maternal Comments: Pt sitting up on side of the bed for epidural placement. (Jenny Li RN) Datetime: 02/22/2016 21:21 Pulse: 110 (QS system process) SpO2 (%): 100 (QS system process) LaborFlag: Antepartum (QS system process) Datetime: 02/22/2016 21:20 Procedure Type: epidural (Jenny Li RN) Procedure Verify: Correct Patient Identity; Correct Side and Site are Marked; Accurate Procedure Consent Form; Agreement on Procedure to be Done; Correct Patient Position (Jenny Li RN) Anesthesia Plans: Epidural (Jenny Li RN) Epidural Positioning: Sitting (Jenny Li RN) Anesthesia Comments: Anesthesia consent forms signs following explaination of risks and benefits and explaination of procedure. (Jenny Li RN) Datetime: 02/22/2016 21:19 NBP Sys/Sharyn/Mean (mmHg): 141 (QS system process) : 85 (QS system process) : 106 (QS system process) Pulse: 107 (QS system process) Anesthesia Comments: Dr. Yates at bedside for epidural placement. (Jenny Li RN) LaborFlag: Antepartum (QS system process) Datetime: 02/22/2016 21:15 Monitor Mode: External; Palpation (Jenny Li RN) Frequency (min): 1.5-3 (Jenny Li RN) Quality: Mild/Moderate (Jenny Li, RN) Duration (sec): 60-80 (Jenny Li RN) Resting Tone (Palpate): Relaxed (Jenny Li RN) Monitor Mode: External US (Jenny Li, RN) FHR Baseline Rate : 130 (Eleuterioandra Li, RN) Variability: Moderate 6-25 bpm (Eleuterioandra Li, RN) Accelerations: 15X15 (Eleuterioandra Li, RN) Decelerations: None (Eleuterioandra Li, RN) Datetime: 02/22/2016 21:10 Procedure Type: epidural (Jenny Li RN) Procedure Verify: Correct Patient Identity; Accurate Procedure Consent Form; Agreement on Procedure to be Done (Jenny Li RN) Anesthesia Plans: Epidural (Jenny Li RN) Anesthesia Comments: Called Dr. Yates, advised of pt request for epidural. States he will be on unit in 10-15min. (Jenny Li RN) Datetime: 02/22/2016 21:04 NBP Sys/Sharyn/Mean (mmHg): 127 (QS system process) : 77 (QS system process) : 97 (QS system process) Pulse: 117 (QS system process) LaborFlag: Antepartum (QS system process) Datetime: 02/22/2016 21:03 Maternal Comments: Visitors at bedside. Pt denies needs. Breathing throught ctx occasionally. (Jenny Li RN) Datetime: 02/22/2016 21:00 Monitor Mode: External; Palpation (Jenny Li RN) Frequency (min): 2-3 (Jenny Li RN) Quality: Mild/Moderate (Jenny Li RN) Duration (sec): 50-70 (Jenny Li RN) Resting Tone (Palpate): Relaxed (Jenny Li RN) Monitor Mode: External US (Jenny Li RN) FHR Baseline Rate : 135 (Jenny Li RN) Variability: Moderate 6-25 bpm (Jenny Li RN) Accelerations: 15X15 (Jenny Li RN) Decelerations: None (Jenny Li RN) Datetime: 02/22/2016 20:50 IV/Blood Work: New IV Bag Hung (Jenny Li RN) Patient Care Comments: New IV bag hung, LR continuest to infuse at bolus rate for epidural placement. (Jenny Li RN) Datetime: 02/22/2016 20:49 NBP Sys/Sharyn/Mean (mmHg): 123 (QS system process) : 74 (QS system process) : 92 (QS system process) Pulse: 101 (QS system process) LaborFlag: Antepartum (QS system process) Datetime: 02/22/2016 20:46 Maternal Comments: pt back to bed without incident. (Rucsandra Jen, RN) Datetime: 02/22/2016 20:45 Monitor Mode: External; Palpation (Rucsandra Jen, RN) Frequency (min): 1.5-5.5 (Rucsandra Jen, RN) Quality: Mild/Moderate (Rucsandra Jen, RN) Duration (sec): 40-60 (Rucsandra Jen, RN) Resting Tone (Palpate): Relaxed (Rucsandra Jen, RN) Monitor Mode: External US (Rucsandra Jen, RN) FHR Baseline Rate : 130 (Rucsandra Jen, RN) Variability: Moderate 6-25 bpm (Rucsandra Jen, RN) Accelerations: 15X15 (Rucsandra Jen, RN) Decelerations: None (Rucsandra Jen, RN) Datetime: 02/22/2016 20:41 I/O Interventions: Up to BR (Jenny Li, RN) Datetime: 02/22/2016 20:34 NBP Sys/Sharyn/Mean (mmHg): 132 (QS system process) : 80 (QS system process) : 100 (QS system process) Pulse: 103 (QS system process) LaborFlag: Antepartum (QS system process) Datetime: 02/22/2016 20:30 Monitor Mode: External; Palpation (Jenny Li RN) Frequency (min): 2-6 (Jenny Li RN) Quality: Mild/Moderate (Jenny Li RN) Duration (sec): 40-70 (Jenny Contrerasahan, RN) Resting Tone (Palpate): Relaxed (Rucsandra Jen, RN) Monitor Mode: External US (Jenny Li, RN) FHR Baseline Rate : 135 (Rucsandra Jen, RN) Variability: Moderate 6-25 bpm (Rucsandra Jen, RN) Accelerations: 15X15 (Rucsandra Jen, RN) Decelerations: None (Rucsandra Li, RN) Pitocin (milliunit): Pitocin Increased to (milliunits) @ 6 (Rucsandra Jen, RN) Datetime: 02/22/2016 20:19 NBP Sys/Sharyn/Mean (mmHg): 123 (QS system process) : 74 (QS system process) : 93 (QS system process) Pulse: 93 (QS system process) LaborFlag: Antepartum (QS system process) Datetime: 02/22/2016 20:15 Monitor Mode: External; Palpation (Jenny Li, RN) Frequency (min): 5-6 (Rumarian Li RN) Quality: Mild/Moderate (Jenny Li RN) Duration (sec): 40-60 (Jenny Li RN) Resting Tone (Palpate): Relaxed (Jenny Li RN) Monitor Mode: External US (Jenny Li RN) FHR Baseline Rate : 140 (Jenny Li RN) Variability: Moderate 6-25 bpm (Jenny Li RN) Accelerations: 15X15 (Jenny Li RN) Decelerations: None (Jenny Li RN) IV/Blood Work: IV Bolus Started; New IV Bag Hung (Jenny Li RN) Patient Care Comments: LR infusing at bolus rate for epidural placement. (Jenny Li RN) Procedure Type: epidural (Jenny Li RN) Procedure Verify: Correct Patient Identity; Accurate Procedure Consent Form; Agreement on Procedure to be Done (Jenny Li RN) Anesthesia Plans: Epidural (Jenny Li RN) Datetime: 02/22/2016 20:11 Pain Scale: 2 (Jenny Li RN) Pain Presence: Intermittent (Jenny Li RN) Pain Type: Contraction (Jenny Li RN) Pain Location: Abdomen (Jenny Li RN) Pain Goal: 2 (Jenny Li RN) Pain Coping: Requesting Pain Medication or Epidural (Jenny Li RN) Maternal Comments: Pt requesting epidural. (Jenny Li RN) LaborFlag: Antepartum (QS system process) Datetime: 02/22/2016 20:08 Antiemetics/Antacids: Zofran IV (mg) @ 8mg IV (Jenny Li RN) Medication Comments: Intended effects and possible side effects explained to pt. Pt agrees and V/U. (Jenny Li, RN) Datetime: 02/22/2016 20:04 NBP Sys/Sharyn/Mean (mmHg): 131 (QS system process) : 87 (QS system process) : 104 (QS system process) Pulse: 103 (QS system process) LaborFlag: Antepartum (QS system process) Datetime: 02/22/2016 20:00 Monitor Mode: External; Palpation (Rucsandra Jen, RN) Frequency (min): 2-7 (Rucsandra Jen, RN) Quality: Mild/Moderate (Rucsandra Jen, RN) Duration (sec): 50-120 (Rucsandra Jen, RN) Resting Tone (Palpate): Relaxed (Rucsandra Jen, RN) Contraction Comments: irritability noted between ctx. (Rucsandra Jen, RN) Monitor Mode: External US (Rucsandra Jen, RN) FHR Baseline Rate : 140 (Rucsandra Jen, RN) Variability: Moderate 6-25 bpm (Rucsandra Jen, RN) Accelerations: None (Rucsandra Jen, RN) Decelerations: None (Rucsandra Jen, RN) Datetime: 02/22/2016 19:51 Maternal Comments: pt reports feeling nauseated, requesting antiemetic. (Rucsandra Jen, RN) Datetime: 02/22/2016 19:49 NBP Sys/Sharyn/Mean (mmHg): 125 (QS system process) : 82 (QS system process) : 96 (QS system process) Pulse: 102 (QS system process) LaborFlag: Antepartum (QS system process) Datetime: 02/22/2016 19:48 Communication Comments: Dr Villarreal on unit, strip reviewed. (Jenny Li RN) Datetime: 02/22/2016 19:45 Monitor Mode: External; Palpation (Jenny Li RN) Frequency (min): x2 (Jenny Li RN) Duration (sec): 50-70 (Jenny Li RN) Resting Tone (Palpate): Relaxed (Jenny Li RN) Monitor Mode: External US (Jenny Li RN) FHR Baseline Rate : 135 (Jenny Li RN) Variability: Moderate 6-25 bpm (Jenny Li RN) Accelerations: 15X15 (Jenny Li RN) Decelerations: None (Jenny Li RN) Pitocin (milliunit): Pitocin Increased to (milliunits) @ 4 (Jenny Li RN) Datetime: 02/22/2016 19:36 NBP Sys/Sharyn/Mean (mmHg): 130 (QS system process) : 69 (QS system process) : 92 (QS system process) Pulse: 107 (QS system process) LaborFlag: Antepartum (QS system process) Datetime: 02/22/2016 19:30 Monitor Mode: External; Palpation (Jenny Li RN) Frequency (min): x2 (Jenny Li RN) Quality: Mild (Jenny Li RN) Duration (sec): 70-110 (Jenny Li RN) Resting Tone (Palpate): Relaxed (Jenny Li RN) Monitor Mode: External US (Jenny Li RN) FHR Baseline Rate : 130 (Jenny Li RN) Variability: Moderate 6-25 bpm (Rucsandra Jen, RN) Accelerations: 15X15 (Jenny Li, RN) Decelerations: None (Jenny Li, RN) Pain Scale: 0 (Eleuterioandra Li, RN) Pain Presence: None/Denies (Eleuterioandra Li, RN) Pain Type: N/A (Jenny Li, RN) Level of Consciousness: Fully Conscious (Jenny Li, RN) DTR's/Clonus: DTRs 2+; No Clonus (Jenny Li, RN) Headache: Denies (Jenny Li, RN) Breath Sounds, Left: Clear and Equal (Eleuterioandra Li, RN) Breath Sounds, Right: Clear and Equal (Eleuterioandra Li, RN) Nausea/Vomiting: Present (Jenny Li, RN) RUQ Epigastric Pain: Denies (Jenny Li, RN) LaborFlag: Antepartum (QS system process) Datetime: 02/22/2016 19:28 Maternal Comments: pt back to bed without incident. (Jenny Li, RN) Datetime: 02/22/2016 19:22 I/O Interventions: Up to BR (Jenny Li, RN) Datetime: 02/22/2016 19:21 Pitocin (milliunit): Pitocin Remains (milliunits) @ 2 (Kari Wright RN) Communication Comments: Bedside shift report given to Alex Li RN. Care relinquished (Kari Wright RN) Datetime: 02/22/2016 19:19 Stage of : Antepartum (Jenny Li, RN) NBP Sys/Sharyn/Mean (mmHg): 129 (QS system process) : 86 (QS system process) : 102 (QS system process) Pulse: 106 (QS system process) LaborFlag: Antepartum (QS system process) Datetime: 02/22/2016 19:15 Monitor Mode: External (Karicornelius Wright, RN) Frequency (min): irregular (Karicornelius Wright, RN) Quality: Mild (Kari Kyle, RN) Duration (sec): 60-80 (Karicornelius Wright, RN) Resting Tone (Palpate): Relaxed (Karicornelius Wright, RN) Monitor Mode: External US (Kari Wright, RN) FHR Baseline Rate : 135 (Kariconrelius Wright, RN) Variability: Moderate 6-25 bpm (Kari Wright, RN) Accelerations: 15X15 (Kari Kyle, RN) Decelerations: None (Kari Wright, RN) Datetime: 02/22/2016 19:06 NBP Sys/Sharyn/Mean (mmHg): 120 (QS system process) : 73 (QS system process) : 91 (QS system process) Pulse: 105 (QS system process) LaborFlag: OB Triage (QS system process) Datetime: 02/22/2016 19:00 Pitocin (milliunit): Pitocin Started (milliunits) @ 2; Pitocin 20 Units in 1000ml NS (Kari Wright RN)
[2016-02-23] MEDS: ACETAMINOPHEN WITH CODEINE #3 TABLET PO PRN ×3 (07:48→16:57)
[2016-02-23] MEDS: SENNOSIDES/DOCUSATE 8.6-50 MG 1 EACH TABLET PO SCH (09:17)
[2016-02-23] MEDS: FERROUS SULFATE 325 MG TABLET PO SCH ×2 (09:17→16:57)
[2016-02-23] MEDS: DOCUSATE SODIUM 100 MG CAPSULE PO SCH ×2 (09:17→16:58)
[2016-02-23] MEDS: PRENATAL VITAMIN W-O CA NO5/FE FUMARATE/FA CAPSULE PO SCH (09:17)
[2016-02-23] MEDS ORDERED: DICYCLOMINE HCL 10 MG CAPSULE PO SCH (10:00)
--- NOTE | 2016-02-23 10:47 | PDOC PROGRESS REPORT ---
Subjective-OB Subjective: Post Delivery Day: 1 25 year old. Denies any needs at this time, states lochia is stable, tolerating diet, voiding without difficulty. Physical Exam (OB) Vital Signs: Temp Pulse Resp BP Pulse Ox 97.5 F 83 16 119/68 99 02/23/16 07:29 02/23/16 07:29 02/23/16 07:29 02/23/16 07:29 02/23/16 07:29 Intake & Output 02/22/16 02/23/16 02/24/16 06:59 06:59 06:59 Intake Total 240 Balance 240 Weight 67.7 kg - Lochia Lochia Amount: Small 10-25 ml Lochia Color: Rubra/Red - Abdomen Description: Tender, Soft, Round Hernia Present: No Fundal Description: Firm, Midline Fundal Height: u/u - u/2 Objective-Diagnostic Laboratory: 02/22/16 16:35 02/22/16 16:35 02/22/16 02/22/16 02/22/16 16:10 16:35 16:35 WBC 7.0 RBC 3.62 L Hgb 9.9 L Hct 29.7 L MCV 82 MCH 27.4 MCHC 33.4 RDW 15.0 H Plt Count 107 L Seg Neutrophils % 79.3 H Lymphocytes % 12.4 L Monocytes % 7.4 Eosinophils % 0.5 Basophils % 0.4 Absolute Neutrophils 5.5 Absolute Lymphocytes 0.9 Absolute Monocytes 0.5 Absolute Eosinophils 0.0 Absolute Basophils 0.0 Sodium 138.3 Potassium 3.5 L Chloride 104 Carbon Dioxide 26 Anion Gap 8 BUN 7 Creatinine 0.48 L Est GFR ( Amer) > 60 Est GFR (Non-Af Amer) > 60 Glucose 101 Uric Acid 3.2 Calcium 9.0 Total Bilirubin 0.4 AST 24 ALT 34 Alkaline Phosphatase 114 Total Protein 6.3 Albumin 3.6 Urine Color YELLOW Urine Appearance TURBID Urine pH 7.0 Ur Specific [place] 1.014 Urine Protein NEGATIVE Urine Glucose (UA) NEGATIVE Urine Ketones NEGATIVE Urine Blood NEGATIVE Urine Nitrite NEGATIVE Ur Leukocyte Esterase LARGE H Urine WBC (Auto) 5 Blood Type Antibody Screen 02/22/16 16:35 WBC RBC Hgb Hct MCV MCH MCHC RDW Plt Count Seg Neutrophils % Lymphocytes % Monocytes % Eosinophils % Basophils % Absolute Neutrophils Absolute Lymphocytes Absolute Monocytes Absolute Eosinophils Absolute Basophils Sodium Potassium Chloride Carbon Dioxide Anion Gap BUN Creatinine Est GFR ( Amer) Est GFR (Non-Af Amer) Glucose Uric Acid Calcium Total Bilirubin AST ALT Alkaline Phosphatase Total Protein Albumin Urine Color Urine Appearance Urine pH Ur Specific [place] Urine Protein Urine Glucose (UA) Urine Ketones Urine Blood Urine Nitrite Ur Leukocyte Esterase Urine WBC (Auto) Blood Type A POSITIVE Antibody Screen NEGATIVE Assessment and Plan(PN) - Assessment and Plan (1) History of seizures Is this a current diagnosis for this admission?: YesPlan: seizure precautions neurology f/u pp (2) Normal vaginal delivery Is this a current diagnosis for this admission?: YesPlan: routine pp care - Time Spent with Patient Time with patient: Less than 15 minutes Critical Time spent with patient: Less than 15 minutes Medications reviewed and adjusted accordingly: Yes - Disposition Anticipated Discharge: Home Within: within 48 hours
[2016-02-23] MEDS ORDERED: LORAZEPAM INJ 2 MG/1 ML VIAL ONE (18:25)
[2016-02-23 18:36] LABS: ABSOLUTE EOSINOPHILS # (AUTO) 0.1 10^3/uL (0.0-0.6); ABSOLUTE LYMPHOCYTES (AUTO) 1.7 10^3/uL (0.5-4.7); ABSOLUTE MONOCYTES (AUTO) 0.7 10^3/uL (0.1-1.4); ABSOLUTE NEUT (AUTO) 5.8 10^3/uL (1.7-8.2); BASOPHILS % (AUTO) 0.4 % (0-2); EOSINOPHILS % (AUTO) 0.7 % (0-6); HEMATOCRIT 29.4 % (36.0-47.0); HEMOGLOBIN 9.6 g/dL (12.0-15.5); HGB HCT DIFFERENCE -0.6; LYMPHOCYTES % (AUTO) 20.6 % (13-45); MEAN CORPUSCULAR HEMOGLOBIN 27.2 pg (27.0-33.4); MEAN CORPUSCULAR HGB CONC 32.8 g/dL (32.0-36.0); MEAN CORPUSCULAR VOLUME 83 fl (80-97); MONOCYTES % (AUTO) 8.4 % (3-13); RED BLOOD COUNT 3.55 10^6/uL (3.72-5.28); RED CELL DISTRIBUTION WIDTH 15.1 % (11.5-14.0); SEGMENTED NEUTROPHILS % (AUTO) 69.9 % (42-78); WHITE BLOOD COUNT 8.3 10^3/uL (4.0-10.5)
[2016-02-23] MEDS ORDERED: LEVETIRACETAM 500 MG/NACL-ISO 500 MG/100 ML RTUPB IV ONE (19:00)
[2016-02-23] MEDS ORDERED: POTASSIUM CHLORIDE 10 MEQ TABLET.SA PO ONE (19:03)
[2016-02-23] MEDS ORDERED: NORMAL SALINE 1000 ML 1,000 ML IV PRN (19:03)
[2016-02-23] MEDS ORDERED: LORAZEPAM INJ 2 MG/1 ML VIAL IV ONE (19:15)
[2016-02-23 23:58] VITALS: BP 121/90
[2016-02-24] MEDS: ACETAMINOPHEN WITH CODEINE #3 TABLET PO PRN (03:55)
[2016-02-24] MEDS ORDERED: LEVETIRACETAM 500 MG/NACL-ISO 100 ML IV SCH (06:00)
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
[2016-02-24] MEDS: IBUPROFEN 800 MG TABLET PO SCH (06:20)
--- NOTE | 2016-02-24 06:24 | L&D Care Plan ---
LD CARE PLANS Datetime Report Generated by CPN: 02/24/2016 06:16 Datetime: 02/22/2016 17:50 State: Risk For (Miryam Roman RN) Related To: Labor and Delivery Process (Miryam Roman RN) Goal(s): Patients Pain will be Assessed and Managed; Patient will Verbalize Adequate Relief of Pain or the Ability to Armbrust with Current Pain (Miryam Roman RN) Interventions: Assess Pain Severity on Scale of 0 (None) to 5 (Severe); Assess Type, Location and Intensity of Pain Each Time Client Reports Discomfort and Notify Provider if Unusal Pain Develops; Encourage Proper Breathing and Relaxation Techniques; Offer Alternatives Such as Repositioning, Calm Environment, Massages, Diversional Activities, Ice Pack, Splinting, and Ambulation; Administer Analgesics as Ordered; Assist with Epidural Placement as Appropriate; Evaluate Therapeutic Effectiveness of Medication and Treatments (Miryam Roman RN) Outcome: Patient will Report Absence or Relief of Pain Consistent with Established Pain Goal (Miryam Roman RN) Status: Ongoing (Miryam Roman RN) Outcome: Patient will have a Decrease in Signs and Symptoms of Discomfort (Miryam Roman RN) Status: Ongoing (Miryam Roman RN) Outcome: Pain will be Controlled During Procedures (Miryam Roman RN) Status: Ongoing (Miryam Roman RN) State: Risk For (Miryam Roman RN) Related To: Labor and Delivery Process (Miryam Roman RN) Goal(s): Patient will have Decreased Anxiety and be able to Function at Acceptable Levels (Miryam Roman RN) Interventions: Assess Verbal and Nonverbal Behavioral Indicators of Anxiety; Assist Patient to Identify and Verbalize Symptoms of Anxiety; Identify and Demonstrate Techniques to Control Anxiety; Assist Patient with Coping Mechanisms to Manage Anxiety; Provide Theraputic Touch for the Patient; Explain to Patient, Using a Calm Reassuring Approach and Nonmedical Terms, All Activities, Procedures, and Concerns; Instruct Patient and Family about Post Discharge Care, Limitations, Symptoms to Report and Resources Available (Miryam Roman RN) Outcome: Patient will Identify, Verbalize and Demonstrate Techniques to Control Anxiety (Miryam oRman RN) Status: Ongoing (Miryam Roman RN) Outcome: Patient's Posture, Facial Expressions, Gestures and Activity Level will Reflect Decreased Anxiety (Miryam Roman RN) Status: Ongoing (Miryam Roman RN) Outcome: Patient will Verbalize a Sense of Control and/or Acceptance of the Situation (Miryam Roman RN) Status: Ongoing (Miryam Roman RN) Outcome: Patient will Identify and Utilize Support Person (Miryam Roman RN) Status: Ongoing (Miryam Roman RN) State: Risk For (Miryam Roman RN) Related To: Labor and Delivery Process (Miryam Roman RN) Goal(s): Patient will Accurately Verbalize Understanding of Plan of Care and Treatment; Patient and Family will Accurately Verbalize Understanding of the Disease Process (Miryam Roman RN) Interventions: Assess Motivation and Willingness of Patient/Family to Learn; Assess Preferred Learning Mode: One to One Instruction, Reading, Videos, Group Discussion or Demonstration; Assess Barriers to Learning: Pain, Emotional State, Language Barrier, Cognitive Impairment, Visual or Hearing Deficits; Assess Patient and Family Knowledge of Disease Process, Medications and Treatment; Discuss Therapy and/or Treatment Options, Describe Rationale Behind Management, Therapy and Treatment Recommendations; Instruct Patient and Family on Signs and Symptoms to Report; Instruct Patient and Family on Medication Effects and Side Effects; Provide Appropriate and Timely Education Using Multiple Techniques; Provide Patient and Family with Support Group Information and Resources; Give Clear and Thorough Explanations and Demonstrations (Miryam Roman RN) Outcome: Patient and Family will Verbalize Understanding of Condition, Treatment and Signs and Symptoms to Report (Miryam Roman RN) Status: Ongoing (Miryam Roman RN) Outcome: Patient will Identify Perceived Learning Needs and Express Motivation to Learn (Miryam Roman RN) Status: Ongoing (Miryam Roman RN) Outcome: Patient will Verbalize Understanding of Desired Content, and/or Performs Desired Skill Prior to Discharge (Miryam Roman RN) Status: Ongoing (Miryam Roman RN) State: Risk For (Miryam Roman RN) Related To: Labor and Delivery Process (Miryam Roman RN) Goal(s): Patient will Remain Free from Injury (Miryam Roman RN) Interventions: Monitoring as per Hospital Protocol; Assess Neurological Status; Perform Risk Assessment of Patients with Induction and ; Perform Fall Risk Assessment and Prevention per Hospital Protocol; Perform DVT Risk Assessment and Prophylaxis per Hospital Protocol; Ensure that Oxygen, Suction, and Resuscitation Medications and Equipment are Readily Available; Confirm Patient ID Prior to Procedure(s) and Medication Administration per Hospital Policy (Miryam Roman RN) Outcome: Successful Fall Risk Prevention (Miryam Roman RN) Status: Ongoing (Miryam Roman RN) Outcome: Patient will Deliver Infant without Adverse Sequela (Miryam Roman RN) Status: Ongoing (Miryam Roman RN) Outcome: Patient's Neurological Status will Remain Stable (Miryam Roman RN) Status: Ongoing (Miryam Roman RN) State: Risk For (Miryam Roman RN) Related To: Vaginal Delivery (Miryam Roman RN) Goal(s): Patient will Maintain Optimal Skin Integrity, Free of Breakdown, Injury or Infection (Miryam Roman RN) Interventions: Complete Screening for Pressure Ulcer Risk and Initiate Protocol per Hospital Policy; Monitor Site of Skin Impairment for Color Changes, Redness, Swelling, Warmth, Pain or Other Signs of Infection; Encourage and Assist with Position Changes; Monitor Patient's Mobility Status; Provide Adequate Nutrition and Fluids; Teach Patient Appropriate Hygienic Care; Teach Patient/Family Skin Care Management (Miryam Roman RN) Outcome: Patient will not have Evidence of Injury Such as Skin Breakdown, Scrapes, Cuts, or Bruising (Miryam Roman RN) Status: Ongoing (Miryam Roman RN) Outcome: Patient will Report Any Altered Sensation or Pain at Site of Skin Impairment (Miryam Roman RN) Status: Ongoing (Miryam Roman RN) Outcome: Patients Incisions and Wounds will be without Signs or Symptoms of Infection (Miryam Roman RN) Status: Ongoing (Miryam Roman RN) Outcome: Patient will Demonstrate Understanding of Plan to Heal Skin and Prevent Reinjury and Verbalize Risk Factors (Miryam Roman RN) Status: Ongoing (Miryam Roman RN)
[2016-02-24 07:25] LABS: HEMATOCRIT 28.5 % (36.0-47.0); HEMOGLOBIN 9.3 g/dL (12.0-15.5); HGB HCT DIFFERENCE -0.6; MEAN CORPUSCULAR HEMOGLOBIN 27.1 pg (27.0-33.4); MEAN CORPUSCULAR HGB CONC 32.8 g/dL (32.0-36.0); MEAN CORPUSCULAR VOLUME 83 fl (80-97); RED BLOOD COUNT 3.44 10^6/uL (3.72-5.28); RED CELL DISTRIBUTION WIDTH 15.1 % (11.5-14.0); WHITE BLOOD COUNT 7.9 10^3/uL (4.0-10.5)
[2016-02-24 08:23] LABS: ALANINE AMINOTRANSFERASE 31 U/L (9-52); ALBUMIN 2.8 g/dL (3.5-5.0); ALKALINE PHOSPHATASE 93 U/L (38-126); ANION GAP 7 (5-19); ASPARTATE AMINO TRANSFERASE 34 U/L (14-36); BILIRUBIN,TOTAL 0.3 mg/dL (0.2-1.3); BLOOD UREA NITROGEN 5 mg/dL (7-20); CALCIUM 8.7 mg/dL (8.4-10.2); CARBON DIOXIDE 24 mmol/L (22-30); CHLORIDE 106 mmol/L (98-107); CREATININE RESULT 0.49 mg/dL (0.52-1.25); GLUCOSE 81 mg/dL (75-110); SODIUM 137.1 mmol/L (137-145); TOTAL PROTEIN 5.1 g/dL (6.3-8.2)
--- NOTE | 2016-02-24 08:25 | EKG REPORT ---
SEVERITY:- BORDERLINE ECG - SINUS RHYTHM PROBABLE LEFT ATRIAL ABNORMALITY : Confirmed by: Arash Ross 24-Feb-2016 08:25:28
[2016-02-24] MEDS: SENNOSIDES/DOCUSATE 8.6-50 MG 1 EACH TABLET PO SCH (09:29)
[2016-02-24] MEDS: FERROUS SULFATE 325 MG TABLET PO SCH (09:29)
[2016-02-24] MEDS: DOCUSATE SODIUM 100 MG CAPSULE PO SCH (09:29)
[2016-02-24] MEDS: PRENATAL VITAMIN W-O CA NO5/FE FUMARATE/FA CAPSULE PO SCH (09:32)
[2016-02-24] MEDS ORDERED: LEVETIRACETAM 500 MG TABLET PO SCH (10:00)
--- NOTE | 2016-02-24 12:48 | PDOC DISCHARGE SUMMARY ---
General - Admit/Disc Date/PCP Admission Date/Primary Care Provider: 02/22/16 17:39 MITCHELL SHAW, Discharge Date: 02/24/16 - Discharge Diagnosis (1) Seizure disorder during Is this a current diagnosis for this admission?: Yes (2) Normal vaginal delivery Is this a current diagnosis for this admission?: Yes (3) induced hypertension, delivered, current hospitalization Is this a current diagnosis for this admission?: Yes - Additional Information Discharge Activity: Activity As Tolerated, Balance Activity w/Rest, No Lifting Over 10 Pounds, No Lifting/Push/Pulling, Pelvic Rest, No tub bath Home Medications: Iron 1 tab PO TID 01/17/16 Vit/Iron Fumarate/FA [ Tablet] 1 tab PO DAILY 01/17/16 Ascorbic Acid [Vitamin C 500 mg Tablet] 500 mg PO DAILY 02/17/16 Calcium Carbonate [Tums] 200 mg PO PRN PRN 02/22/16 Dicyclomine HCl [Bentyl 10 mg Capsule] 10 mg PO DAILY 02/22/16 Diphenhydramine HCl [Benadryl] 25 mg PO PRN PRN 02/22/16 Docusate Sodium [Colace 100 mg Capsule] 100 mg PO DAILY 02/22/16 Ranitidine HCl [Zantac] 300 mg PO DAILY 02/22/16 History of Present Illness Patient complains of: induction for PIH History of Present Illness: PARAG ALBARADO is a 25 year old female Pt admitted for induction by pitocin for elevated bp in office Hospital Course Hospital Course: Pt admitted for induction of labor for pih. She had no evidence of preeclampsia. she underwent normal labor and delivery. On ppd#1 she had a seizure and was transferred to telemetry and underwent evaluation by Dr Cerda. She was restarted on Kepra and had no further seizures. Pt stable for d/c on ppd #2 Physical Exam - Physical Exam Vital Signs: Temp Pulse Resp BP Pulse Ox 97.7 F 99 17 121/90 H 95 02/23/16 23:57 02/23/16 23:57 02/23/16 23:57 02/23/16 23:57 02/23/16 23:57 Intake & Output 02/23/16 02/24/16 02/25/16 06:59 06:59 06:59 Intake Total 680 Balance 680 Weight 67.7 kg 67.2 kg General appearance: PRESENT: no acute distress, cooperative Respiratory exam: PRESENT: clear to auscultation ariadna Cardiovascular exam: PRESENT: RRR GI/Abdominal exam: PRESENT: normal bowel sounds, soft. ABSENT: distended, guarding, mass, organolmegaly, rebound, tenderness Neurological exam: PRESENT: alert, altered, awake - Obstetrical Exam Fundal Height: u/u - u/2 - nontender fundus Result Laboratory Results: 02/24/16 06:56 02/24/16 06:56 02/23/16 02/24/16 02/24/16 18:24 06:56 06:56 WBC 8.3 7.9 RBC 3.55 L 3.44 L Hgb 9.6 L 9.3 L Hct 29.4 L 28.5 L MCV 83 83 MCH 27.2 27.1 MCHC 32.8 32.8 RDW 15.1 H 15.1 H Plt Count 98 L 111 L Seg Neutrophils % 69.9 Lymphocytes % 20.6 Monocytes % 8.4 Eosinophils % 0.7 Basophils % 0.4 Absolute Neutrophils 5.8 Absolute Lymphocytes 1.7 Absolute Monocytes 0.7 Absolute Eosinophils 0.1 Absolute Basophils 0.0 Sodium 137.1 Potassium 4.0 Chloride 106 Carbon Dioxide 24 Anion Gap 7 BUN 5 L Creatinine 0.49 L Est GFR ( Amer) > 60 Est GFR (Non-Af Amer) > 60 Glucose 81 Calcium 8.7 Total Bilirubin 0.3 AST 34 ALT 31 Alkaline Phosphatase 93 Total Protein 5.1 L Albumin 2.8 L Plan Discharge Plan: discharge home. f/u office 4 weeks. F/u seizure disorder as per Dr Cerda Time Spent: Less than 30 Minutes
--- NOTE | 2016-02-24 17:20 | PDOC CONSULTATION ---
Consultation Consult Date: 02/23/16 Attending physician:: JUN SHAW Consult reason:: Seizure History of Present Illness Admission Date/PCP: 02/22/16 17:39 MITCHELL SHAW DO Patient complains of: Short seizure History of Present Illness: This is a 25-year-old who is one day Patient has a known history of seizure disorder; she has not taken any medications through she also has history of orthostatic hypotension While on the teixeira patient had an episode of "petit mal seizure' The episode was described as similar to prior events She did feel she was going to have seizure; somewhat dizzy and lightheaded; then all of a sudden was absent fora minute or two Eyes wide-open staring No tonicoclonic activity as described by staff; no tongue biting; no postictal state Patient was given 2 mg Ativan and hospitalist consult was obtained Past Medical History Cardiac Medical History: Reports: Other - Orthostatic hypotension [facility] Medical History: Reports: Seizures Past Surgical History Past Surgical History: Reports: Orthopedic Surgery Social History Smoking Status: Never Smoker - Advance Directive Resuscitation Status: Full Code Surrogate healthcare decision maker:: Family History Family History: Reviewed & Not Pertinent, CAD Parental Family History Reviewed: Yes - CAD Children Family History Reviewed: No Sibling(s) Family History Reviewed.: No Medication/Allergy Home Medications: Iron 1 tab PO TID 01/17/16 Vit/Iron Fumarate/FA [ Tablet] 1 tab PO DAILY 01/17/16 Ascorbic Acid [Vitamin C 500 mg Tablet] 500 mg PO DAILY 02/17/16 Calcium Carbonate [Tums] 200 mg PO PRN PRN 02/22/16 Dicyclomine HCl [Bentyl 10 mg Capsule] 10 mg PO DAILY 02/22/16 Diphenhydramine HCl [Benadryl] 25 mg PO PRN PRN 02/22/16 Docusate Sodium [Colace 100 mg Capsule] 100 mg PO DAILY 02/22/16 Ranitidine HCl [Zantac] 300 mg PO DAILY 02/22/16 Allergies/Adverse Reactions: morphine [Morphine] Allergy (Severe, Verified 02/22/16 16:18) Anaphylaxis azithromycin [From Zithromax] Allergy (Mild, Verified 02/22/16 16:18) latex [Latex] Allergy (Mild, Verified 02/22/16 16:18) Review of Systems Constitutional: ABSENT: chills, fever(s), headache(s), weight gain, weight loss Eyes: ABSENT: visual disturbances Ears: ABSENT: hearing changes Cardiovascular: ABSENT: chest pain, dyspnea on exertion, edema, orthropnea, palpitations Respiratory: ABSENT: cough, hemoptysis Gastrointestinal: ABSENT: abdominal pain, constipation, diarrhea, hematemesis, hematochezia, nausea, vomiting Genitourinary: ABSENT: dysuria, hematuria Musculoskeletal: ABSENT: joint swelling Integumentary: ABSENT: rash, wounds Neurological: PRESENT: other - Episodes of seizures with prodromal symptoms During which patient does not use consciousness is just " absent "without any tonicoclonic activity. ABSENT: abnormal gait, abnormal speech, confusion, dizziness, focal weakness, syncope Psychiatric: ABSENT: anxiety, depression, homidical ideation, suicidal ideation Endocrine: ABSENT: cold intolerance, heat intolerance, polydipsia, polyuria Hematologic/Lymphatic: ABSENT: easy bleeding, easy bruising Physical Exam Vital Signs: Temp Pulse Resp BP Pulse Ox 97.7 F 99 17 121/90 H 95 02/23/16 23:57 02/23/16 23:57 02/23/16 23:57 02/23/16 23:57 02/23/16 23:57 Intake & Output 02/23/16 02/24/16 02/25/16 00:59 00:59 00:59 Intake Total 240 440 Balance 240 440 Weight 67.7 kg 67.2 kg General appearance: PRESENT: no acute distress, well-developed, well-nourished Head exam: PRESENT: atraumatic, normocephalic Eye exam: PRESENT: conjunctiva pink, EOMI, PERRLA. ABSENT: scleral icterus Ear exam: PRESENT: normal external ear exam Mouth exam: PRESENT: moist, tongue midline Neck exam: ABSENT: carotid bruit, JVD, lymphadenopathy, thyromegaly Respiratory exam: PRESENT: clear to auscultation ariadna. ABSENT: rales, rhonchi, wheezes Cardiovascular exam: PRESENT: RRR. ABSENT: diastolic murmur, rubs, systolic murmur Pulses: PRESENT: normal dorsalis pedis pul Vascular exam: PRESENT: normal capillary refill GI/Abdominal exam: PRESENT: normal bowel sounds, soft. ABSENT: distended, guarding, mass, organolmegaly, rebound, tenderness Rectal exam: PRESENT: deferred Extremities exam: PRESENT: full ROM. ABSENT: calf tenderness, clubbing, pedal edema Neurological exam: PRESENT: alert, awake, oriented to person, oriented to place , oriented to time, oriented to situation, CN II-XII grossly intact. ABSENT: motor sensory deficit Psychiatric exam: PRESENT: appropriate affect, normal mood. ABSENT: homicidal ideation, suicidal ideation Skin exam: PRESENT: dry, intact, warm. ABSENT: cyanosis, rash Results Laboratory Results: 02/24/16 06:56 02/24/16 06:56 02/23/16 02/24/16 02/24/16 18:24 06:56 06:56 WBC 8.3 7.9 RBC 3.55 L 3.44 L Hgb 9.6 L 9.3 L Hct 29.4 L 28.5 L MCV 83 83 MCH 27.2 27.1 MCHC 32.8 32.8 RDW 15.1 H 15.1 H Plt Count 98 L 111 L Seg Neutrophils % 69.9 Lymphocytes % 20.6 Monocytes % 8.4 Eosinophils % 0.7 Basophils % 0.4 Absolute Neutrophils 5.8 Absolute Lymphocytes 1.7 Absolute Monocytes 0.7 Absolute Eosinophils 0.1 Absolute Basophils 0.0 Sodium 137.1 Potassium 4.0 Chloride 106 Carbon Dioxide 24 Anion Gap 7 BUN 5 L Creatinine 0.49 L Est GFR ( Amer) > 60 Est GFR (Non-Af Amer) > 60 Glucose 81 Calcium 8.7 Total Bilirubin 0.3 AST 34 ALT 31 Alkaline Phosphatase 93 Total Protein 5.1 L Albumin 2.8 L Assessment & Plan - Diagnosis (1) Petit mal epilepsy Qualifiers: Status epilepticus: without status epilepticus Is this a current diagnosis for this admission?: YesPlan: Patient was given 500 of her Keppra IV piggyback She will be transferred to a telemetry unit to be monitored. Repeat EEG would be indicated as a follow-up (2) induced hypertension, delivered, current hospitalization Is this a current diagnosis for this admission?: YesPlan: Patient's blood pressure is adequate at this time CMP is normal with normal LFTs CBC normal There is no evidence that the patient has eclampsia (3) History of seizures Is this a current diagnosis for this admission?: Yes - Time Time Spent with patient: We will monitor the patient overnight she may be discharged in a.m. if stable Time Spent: 50 to 70 Minutes
--- NOTE | 2016-02-24 17:23 | PDOC PROGRESS REPORT ---
Subjective Progress Note for:: 02/24/16 Subjective:: Patient did not have any recurrent seizures; this morning she is totally asymptomatic Patient states she does not want to take Keppra as it had been discontinued by her neurologist at [facility] patient is ready to go home Physical Exam Vital Signs: Temp Pulse Resp BP Pulse Ox 97.7 F 99 17 121/90 H 95 02/23/16 23:57 02/23/16 23:57 02/23/16 23:57 02/23/16 23:57 02/23/16 23:57 Intake & Output 02/23/16 02/24/16 02/25/16 00:59 00:59 00:59 Intake Total 240 440 Balance 240 440 Weight 67.7 kg 67.2 kg General appearance: PRESENT: no acute distress, well-developed, well-nourished Head exam: PRESENT: atraumatic, normocephalic Eye exam: PRESENT: conjunctiva pink, EOMI, PERRLA. ABSENT: scleral icterus Ear exam: PRESENT: normal external ear exam Mouth exam: PRESENT: moist, tongue midline Neck exam: ABSENT: carotid bruit, JVD, lymphadenopathy, thyromegaly Respiratory exam: PRESENT: clear to auscultation ariadna. ABSENT: rales, rhonchi, wheezes Cardiovascular exam: PRESENT: RRR. ABSENT: diastolic murmur, rubs, systolic murmur Pulses: PRESENT: normal dorsalis pedis pul Vascular exam: PRESENT: normal capillary refill GI/Abdominal exam: PRESENT: normal bowel sounds, soft. ABSENT: distended, guarding, mass, organolmegaly, rebound, tenderness Rectal exam: PRESENT: deferred Extremities exam: PRESENT: full ROM. ABSENT: calf tenderness, clubbing, pedal edema Neurological exam: PRESENT: alert, awake, oriented to person, oriented to place , oriented to time, oriented to situation, CN II-XII grossly intact. ABSENT: motor sensory deficit Psychiatric exam: PRESENT: appropriate affect, normal mood. ABSENT: homicidal ideation, suicidal ideation Skin exam: PRESENT: dry, intact, warm. ABSENT: cyanosis, rash Results Laboratory Results: 02/24/16 06:56 02/24/16 06:56 02/23/16 02/24/16 02/24/16 18:24 06:56 06:56 WBC 8.3 7.9 RBC 3.55 L 3.44 L Hgb 9.6 L 9.3 L Hct 29.4 L 28.5 L MCV 83 83 MCH 27.2 27.1 MCHC 32.8 32.8 RDW 15.1 H 15.1 H Plt Count 98 L 111 L Seg Neutrophils % 69.9 Lymphocytes % 20.6 Monocytes % 8.4 Eosinophils % 0.7 Basophils % 0.4 Absolute Neutrophils 5.8 Absolute Lymphocytes 1.7 Absolute Monocytes 0.7 Absolute Eosinophils 0.1 Absolute Basophils 0.0 Sodium 137.1 Potassium 4.0 Chloride 106 Carbon Dioxide 24 Anion Gap 7 BUN 5 L Creatinine 0.49 L Est GFR ( Amer) > 60 Est GFR (Non-Af Amer) > 60 Glucose 81 Calcium 8.7 Total Bilirubin 0.3 AST 34 ALT 31 Alkaline Phosphatase 93 Total Protein 5.1 L Albumin 2.8 L Assessment & Plan - Diagnosis (1) Petit mal epilepsy Qualifiers: Status epilepticus: without status epilepticus Is this a current diagnosis for this admission?: Yes (2) induced hypertension, delivered, current hospitalization Is this a current diagnosis for this admission?: Yes (3) History of seizures Is this a current diagnosis for this admission?: Yes - Time Time Spent with patient: Patient refused the prescription for Keppra and/or any other prescriptions She will follow-up with the neurologist at [place] and 

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
== END 2016-02-24 14:13 | disposition home or self-care (01) | DRG 775 ==
LOC: LC 15:59 → LR 17:39 → 2S 02-23 02:20 → 5 02-23 20:49
PROVIDERS: ADMIT Obstetrics & Gynecology; ATTEND Obstetrics & Gynecology
PROC: 10E0XZZ Delivery of Products of Conception, External Approach (ICD-10-PCS; principal; 2016-02-22)
PROC: 4A1HXCZ Monitoring of Products of Conception, Cardiac Rate, External Approach (ICD-10-PCS; 2016-02-22)
PROC: 10907ZC Drainage of Amniotic Fluid, Therapeutic from Products of Conception, Via Natural or Artificial Opening (ICD-10-PCS; 2016-02-22)
DX: O13.4 Gestational [pregnancy-induced] hypertension without significant proteinuria, complicating childbirth (principal); O99.354 Diseases of the nervous system complicating childbirth; G40.909 Epilepsy, unspecified, not intractable, without status epilepticus; O99.02 Anemia complicating childbirth; D64.9 Anemia, unspecified; O26.53 Maternal hypotension syndrome, third trimester; Z3A.39 39 weeks gestation of pregnancy; Z37.0 Single live birth; Z88.6 Allergy status to analgesic agent; Z91.040 Latex allergy status; Z88.1 Allergy status to other antibiotic agents; Z82.49 Family history of ischemic heart disease and other diseases of the circulatory system
CPT/HCPCS: 36415; 80053; 80307; 81001; 83615; 84550; 85025; 85027; 86592; 86850; 86900; 86901; 93005; 93010; J2060; J2405; J2540; J2590; J3490; J7030